=== PATIENT | female | born 1980 ===

== ENCOUNTER 2020-12-04 09:08 | Outpatient (REF) | payer MEDICAID, SELFPAY ==
[2020-12-04 10:21] LABS: Iron 91 mcg/dL (30-160); Percent Iron Saturation 24 % (15-50); Total Iron Binding Capacity 381 mcg/dL (228-428); Unsaturated Iron Binding 290 ug/dL
[2020-12-04 10:44] LABS: T4 Thyroxine 7.6 ug/dL (4.5-12.0); Thyroid Stimulating Hormone 0.62 uIU/mL (0.32-4.0)
[2020-12-05 09:12] LABS: Triiodothyronine T3 Total 116 ng/dL (76-181)
== END 2020-12-04 09:09 | disposition home or self-care (01) ==
LOC: HO.LAB 09:08
PROVIDERS: Absent Provider Nurse Practitioner Primary Care; PCP Nurse Practitioner Primary Care; Visit Provider Registered Nurse Community Health
DX: R00.1 Bradycardia, unspecified (principal); R06.02 Shortness of breath
CPT/HCPCS: 36415; 83540; 84436; 84443; 84480

== ENCOUNTER → 2020-12-14 14:53 | Outpatient (BNVA) | payer MEDICAID, SELFPAY | PROVIDERS: PCP Registered Nurse Community Health; Referring Provider Registered Nurse Community Health; Visit Provider Internal Medicine | DX: R07.2 Precordial pain (principal); R00.2 Palpitations; R06.02 Shortness of breath | CPT/HCPCS: 99202 ==

== ENCOUNTER → 2021-01-14 10:34 | Outpatient (BNVA) | payer MEDICAID, SELFPAY | PROVIDERS: PCP Nurse Practitioner Primary Care; Visit Provider Nurse Practitioner Family | DX: M53.9 Dorsopathy, unspecified (principal); M53.3 Sacrococcygeal disorders, not elsewhere classified | CPT/HCPCS: 99202 ==

== ENCOUNTER → 2021-01-18 07:51 | Outpatient (REF) | payer MEDICAID, SELFPAY ==
--- NOTE | ~2021-01-18 | NM_ITS ---
EXERCISE MYOCARDIAL PERFUSION STUDY INDICATION: Chest pain, shortness of breath, assess for coronary disease and ischemia TECHNIQUE: The patient was brought in for an exercise perfusion study on 01/18/2021. Patient performed exercise as per Shaun protocol and was injected 45 mCi of sestamibi once target heart rate was achieved. Images were obtained using the SPECT gamma camera interlaced with the gating device. Images were obtained in supine position. Resting perfusion study was performed on 01/19/2021. Patient was administered 45 mCi of sestamibi intravenously at rest. Images were then obtained in supine position. Total DLP 179mGy-cm. Images were processed with the software and compared side to side in short axis, horizontal long axis and vertical long axis views. FINDINGS: Raw images were reviewed. The stress perfusion study showed diminished tracer uptake along the distal part of anterior wall, apex, apical lateral wall. There is slightly decreased tracer uptake in the basal inferior wall. With CT attenuation, there is significant improvement in the apex and adjacent areas and hence this could be from soft tissue attenuation. There is also improved uptake in the basal inferior wall and hence this could be from diaphragmatic attenuation. The gated study shows normal LV systolic function with calculated LVEF of 58%. LV cavity is normal in size. The gated study shows normal wall thickening and contraction of segments. Resting study shows no significant perfusion abnormality. Gating at rest reveals normal wall motion with ejection fraction at 60%. The findings are consistent with reversible anterior apical, apical and apical lateral defect likely from soft tissue attenuation artifact. Reversible basal inferior defect likely from diaphragmatic artifact. NM/NM cardiolite stress test IMPRESSION: 1. Myocardial perfusion imaging study shows no definitive evidence of any ischemia or infarction. Likely normal perfusion. 2. Gated LVEF is 58% during stress and 60% during rest. 3. Transient ischemic dilatation not present. EKG component of the test reported separately.
--- NOTE | 2021-01-18 08:28 | CA_ITS ---
Transthoracic Echocardiogram Patient (Last, First, Middle): Ro Marks O Gender: Female Date of : 1980 Age: 40 Procedure Date: 01/18/2021 Procedure Type: Transthoracic Echocardiogram Location: OP Height: 170.18 cm Weight: 130.64 kg BSA: 2.36 m2 Heart Rate: bpm BP: 116 / 57 mmHg Intensive Care Unit Registered Nurse: FRANKLIN Referring MD: Wojciech Bernardo MD Coin Box Inspector: Abdi Mcintosh MD Symptoms: R07.2 - Precordial pain Study Quality: Fair ECG Rhythm: Sinus Conclusions: - Essentially normal study Findings Left Ventricle Normal left ventricular cavity size. There is normal left ventricular wall thickness. The visually estimated ejection fraction is between 55-60%. Spectral Doppler is indicative of a normal filling pattern. Right Ventricle Normal right ventricular cavity size and systolic function. Atria The left atrium is normal in size. Interatrial shunt cannot be excluded. The right atrium is normal in size. Aortic Valve Normal aortic valve structure and function. There is no aortic valve stenosis. There is no aortic valve regurgitation. Mitral Valve Normal mitral valve structure and function. There is trace mitral valve regurgitation. There is no mitral valve stenosis. Pulmonic Valve The pulmonic valve was not well visualized. Tricuspid Valve Likely normal tricuspid valve structure and function. There is trace tricuspid valve regurgitation. The right ventricular systolic pressure is normal. The right ventricular systolic pressure is 26 mmHg. Normal right atrial pressure. There is no evidence of pulmonary hypertension. Great Vessels All visible segments of the aorta are normal in size. The pulmonary artery was not well visualized. Venous The inferior vena cava is normal in size and collapses greater than 50% with inspiration. Pericardium/Pleural There is no evidence of pericardial effusion. Prior Study Comparison No prior study available for comparison. Measurements 2D Linear Measurements IVSd: 0.97 0.6-0.9/0.6-1.0 cm LVIDd: 5.29 3.9-5.3/4.2-5.9 cm LVIDd Index: 2.24 2.4-3.2/2.2-3.1 cm/m2 LVIDs: 3.89 2.0-3.6 cm LVPWd: 0.94 0.7-1.1 cm Ao Root: 2.80 2.1-3.5 cm LA Diam: 3.40 2.7-3.8/3.0-4.0 cm LAIDs Index: 1.44 1.5-2.3 cm/m2 LV Mass: 233.74 67-162/88-224 g LV Mass Index: 99.04 43-95/49-115 g/m2 LVOT Diam: 2.20 3.0+(-)1.3 cm 2D Systolic Function EF 4C: 54.30 >55% EF 2C: 53.00 >55% EF BiP: 55.00 >55% Mitral Valve MV Pk E: 0.84 MV PK A: 0.50 MV Decel Time: 327.00 E/A: 1.70 PHT: 96.00 MVA PHT: 2.29 Decel Coffey: 2.56 Aortic Valve AoV Pk Elia: 1.28 AoV Pk Grad: 7.00 LVOT LVOT Pk Elia: 0.72 LVOT Mn Elia: 0.50 LVOT VTI: 0.19 LVOT Pk Grad: 2.00 LVOT Mn Grad: 1.00 LVOT Diam: 2.20 LVOT Area: 3.80 Diastolic Function MV Pk E: 0.84 MV Pk A: 0.50 E/A: 1.70 Right Ventricle TAPSE (mm): 1.99 Tricuspid Valve TR Pk Elia: 2.40 TR Pk Grad: 23.00 RA Press: 3.00 RVSP: 26.00 Great Vessels Aorta Ao Root-2D: 2.80 2.0-3.7 cm Ao Asc: 2.80 2.1-3.4 cm Ao Arch: 2.60 Updated in Other Vendor System with Status of Final Abdi Mcintosh MD electronically signed on 01/19/2021 8:54:45 AM with status of Final
--- NOTE | 2021-01-18 08:28 | CA_ITS ---
Acquisition Time: 2021-01-18 09:27:42 Total Exercise Time: 00:05:00 Test Indications: CP, SOB Medications: SEE CHART Protocol: AMARIS Max HR: 173 BPM 95% of Pred: 182 BPM Max BP: 160/078 mmHG Max Work Load: 7.0 METS Exercise stess test with exercise 5 min of Amaris protocol with request to stop due to moderate shortness of breath, no chest discomfort, with sinus pauses noted on EKG at baseline, longest 2.4 sec asymptomatic, without arrythmia/ pauses during exercise or recovery, with normotensive response to exercise, without EKG changes meeting criteria for ischemia. In recovery her breathing normalized quickly. Nuclear images pending. Test reviewed with Dr Mcintosh. Referred By: Wojciech Bernardo Overread By: CHACHA PEPE
== END ==
LOC: HO.CARD 07:51
PROVIDERS: Visit Provider Internal Medicine
DX: R07.2 Precordial pain (principal); R06.02 Shortness of breath
CPT/HCPCS: 78452; 93017; 93306; A9500

== ENCOUNTER → 2021-01-25 14:44 | Outpatient (BNVA) | payer MEDICAID, SELFPAY | PROVIDERS: PCP Registered Nurse Community Health; Referring Provider Nurse Practitioner Primary Care; Visit Provider Nurse Practitioner Family | DX: I45.5 Other specified heart block (principal); R07.2 Precordial pain; R06.02 Shortness of breath; R00.2 Palpitations | CPT/HCPCS: 93005; 99212 ==

== ENCOUNTER → 2021-01-31 14:02 | Outpatient (REF) | payer MEDICAID, SELFPAY ==
--- NOTE | 2021-01-31 14:21 | HM_ITS ---
Conclusion: 1. Patient was monitor for total period of 3 days and 2 hours 2. Baseline was normal sinus rhythm with average heart rate of 71 beats per minute, maximum heart rate sinus tachycardia at 174 beats per minute and minimum heart rate of 36 beats per minute in sinus bradycardia during sleep hours 3. No tachy or Dwayne arrhythmias noted 4. Total of 408 PACs accounting for 0.13% of total beats accounting for rare PACs 5. No patient reported events MTDD
== END ==
LOC: HO.SL 14:02
PROVIDERS: PCP Nurse Practitioner Primary Care; Visit Provider Nurse Practitioner Family
DX: G47.10 Hypersomnia, unspecified (principal); I45.5 Other specified heart block; R00.2 Palpitations
CPT/HCPCS: 93242; 95806

== ENCOUNTER 2021-02-15 06:51 | Outpatient (REF) | payer MEDICAID, SELFPAY ==
--- NOTE | ~2021-02-15 | FL_ITS ---
EXAMINATION: XR FLUOROSCOPY WITH IMAGES CLINICAL INFORMATION: M53.3 - Sacrococcygeal disorders, not elsewhere classified COMPARISON: None. TECHNIQUE: Fluoroscopy performed by Dr. Hunter Edward. Fluoroscopy time: 0.1 minutes DAP: 2.65 Gycm2 Images: 1 FINDINGS: There is spinal needle overlying lower right sacroiliac joint. There is periarticular contrast and likely some early intra-articular contrast. No visible vascular communication. FL/FL guidance in treatment room IMPRESSION: Fluoroscopy for pain management procedure.
== END 2021-02-15 06:52 | disposition home or self-care (01) ==
LOC: HO.RADIR 06:51
PROVIDERS: Visit Provider Anesthesiology
DX: M53.3 Sacrococcygeal disorders, not elsewhere classified (principal); M53.9 Dorsopathy, unspecified
CPT/HCPCS: 27096; Q9967

== ENCOUNTER → 2021-02-22 13:38 | Outpatient (BNVA) | payer MEDICAID, SELFPAY | PROVIDERS: PCP Nurse Practitioner Primary Care; Visit Provider Nurse Practitioner Family | DX: M53.9 Dorsopathy, unspecified (principal); M53.3 Sacrococcygeal disorders, not elsewhere classified | CPT/HCPCS: 99212 ==

== ENCOUNTER → 2021-03-08 14:58 | Outpatient (BNVA) | payer MEDICAID, SELFPAY | PROVIDERS: PCP Nurse Practitioner Primary Care; Referring Provider Nurse Practitioner Primary Care; Visit Provider Nurse Practitioner Family | DX: I45.5 Other specified heart block (principal); R06.02 Shortness of breath; R07.2 Precordial pain; R00.2 Palpitations | CPT/HCPCS: 99212 ==

== ENCOUNTER 2021-05-19 10:46 | Outpatient (REF) | payer MEDICAID, SELFPAY ==
--- NOTE | 2021-05-19 | PFT_ITS ---
FLOWS: FEV1 85% of predicted at 2.85 L. FVC 80% of predicted at 3.22 L. FEV1 to FVC ratio of 0.89. No bronchodilator response except in small to medium airways. LUNG VOLUMES: Total lung capacity 83% of predicted at 4.61 L. Residual volume 72% of predicted at 1.24 L. Slow vital capacity 89% of predicted at 3.38 L. Expiratory reserve volume 21% of predicted at 0.29 L. Diffusion capacity is normal. IMPRESSION: No obstructive or restrictive ventilatory defect. No bronchodilator response except in small to medium airways. Decreased expiratory reserve volume suggests extrathoracic restriction likely secondary to abdominal obesity. Yoseph Anderson MD AP/MODL / [id number]
== END 2021-05-19 10:47 | disposition home or self-care (01) ==
LOC: HO.RESP 10:46
PROVIDERS: PCP Nurse Practitioner Primary Care; Visit Provider Nurse Practitioner Primary Care
DX: R06.02 Shortness of breath (principal)
CPT/HCPCS: 94060; 94727; 94729

== ENCOUNTER 2021-05-27 08:41 | Emergency (ER) | payer MEDICAID, SELFPAY ==
[2021-05-27 08:44] VITALS: BP 129/78; PULSE 89; RESP 18; TEMP 36.4; O2SAT 97; BMI 44.1
--- NOTE | 2021-05-27 09:01 | ED.BACK ---
HPI - Back Pain/Injury General Chief Complaint: Back Pain/Injury <ROMERO Watson Last Filed: 05/27/21 11:18> Stated Complaint: Back pain/leg pain <ROMERO Watson Last Filed: 05/27/21 11:18> Time Seen by Provider: 05/27/21 08:58 <ROMERO Watson Last Filed: 05/27/21 11:18> Source: patient <ROMERO Watson Last Filed: 05/27/21 11:18> Mode of arrival: ambulatory <ROMERO Watson Last Filed: 05/27/21 11:18> Limitations: no limitations <ROMERO Watson Last Filed: 05/27/21 11:18> History of Present Illness HPI Narrative: 40-year-old female with a past medical history of SI joint pain, degenerative disc disease, heart palpitations and obesity who has seen Pain Management in the past for right low chronic back Pain that she has had the last 8 years presents for worsening back pain that started 3 days ago. No trauma, Pain started while patient was at work. Pain has gotten progressively worse, it is a 10/10 and is sharp and stabbing in patient's mid back and right buttock traveling down her right leg. Patient cannot find a comfortable position to sit and has missed work these last 3 days due to pain Patient states she has been incontinent of urine when she has to go to the bathroom because is difficult to make it to the bathroom in time due to pain. She has had 7 children She is able to empty her bladder completely, no bowel incontinence, no saddle paresthesias, no numbness or tingling. It is hard to walk due to pain, no focal weakness. No fevers. Patient was seen in the past by her PCP and was treated for sciatica with no improvement, she was [facility] dysfunction and they did injections in her right SI joint. Patient had MRI 2016 that showed disc disease in her lumbar spine L4-L5, L5-S1, patient had CT October 2016 which showed degenerative disc disease L5-S1 <ROMERO Watson Last Filed: 05/27/21 11:18> MD elicited complaint: back pain <ROMERO Watson Last Filed: 05/27/21 11:18> Pertinent past history: prior back pain <ROMERO Watson - Last Filed: 05/27/21 11:18> Onset (ago): day(s) (3) <ROMERO Watson - Last Filed: 05/27/21 11:18> Timing: progressively worsening <ROMERO Watson - Last Filed: 05/27/21 11:18> Severity: severe <ROMERO Watson - Last Filed: 05/27/21 11:18> Pain scale (0-10): 10 <ROMERO Watson - Last Filed: 05/27/21 11:18> Similar Symptoms Previously: Yes <ROMERO Watson - Last Filed: 05/27/21 11:18> Quality: stabbing <ROMERO Watson - Last Filed: 05/27/21 11:18> Location: right lower back and left lower back <ROMERO Watson - Last Filed: 05/27/21 11:18> Radiation: groin <ROMERO Watson - Last Filed: 05/27/21 11:18> Exacerbating factors: movement, supine positioning, sitting upright and walking <ROMERO Watson - Last Filed: 05/27/21 11:18> Relieving factors: none <ROMERO Watson - Last Filed: 05/27/21 11:18> Associated symptoms: difficulty walking <ROMERO Watson - Last Filed: 05/27/21 11:18> Treatments prior to arrival: NSAIDS <ROMERO Watson - Last Filed: 05/27/21 11:18> Work related injury: No <ROMERO Watson - Last Filed: 05/27/21 11:18> Related Data Home Medications: Home Medications Medication Instructions Recorded Confirmed albuterol sulfate 90 mcg/actuation 2 puff PO QID 12/14/20 03/08/21 aerosol inhaler (ProAir HFA) cetirizine 10 mg capsule (Zyrtec) 10 mg PO DAILY PRN 12/14/20 03/08/21 cholecalciferol (vitamin D3) 50 50 mcg PO DAILY 12/14/20 03/08/21 mcg (2,000 unit) capsule diphenhydramine HCl 25 mg capsule 25 mg PO TID PRN 12/14/20 03/08/21 (Benadryl) escitalopram oxalate 10 mg tablet 10 mg PO DAILY 12/14/20 03/08/21 famotidine 20 mg tablet (Pepcid) 20 mg PO DAILY PRN 12/14/20 03/08/21 fexofenadine 60 mg tablet (Danya 60 mg PO BID PRN 12/14/20 03/08/21 Allergy) prednisone 50 mg tablet 50 mg PO DAILY PRN 12/14/20 03/08/21 tramadol 100 mg capsule 100 mg PO TID cap 12/14/20 03/08/21 24h,extended release(25-75) zolpidem 10 mg tablet (Ambien) 10 mg PO BEDTIME 12/14/20 03/08/21 ibuprofen 800 mg tablet 800 mg PO TID 01/14/21 03/08/21 tramadol 50 mg tablet 100 mg PO Q8H PRN 01/14/21 03/08/21 Previous Rx's Medication Instructions Recorded diazepam 5 mg tablet (Valium) 5 mg PO TID PRN #9 tab 05/27/21 ketorolac 10 mg tablet 10 mg PO TID 5 Days #15 tab 05/27/21 <ROMERO Watson Last Filed: 05/27/21 11:18> Allergies/Adverse Reactions: Allergies Allergy/AdvReac Type Severity Reaction Status Date / Time dust mites Allergy Unknown hives Verified 03/08/21 14:59 hydroxyzine [HYDROXYZINE] Allergy Unknown ANAPHYLAXIS, Verified 03/08/21 14:59 rash wheat Allergy Unknown ANAPHYLAXIS Verified 03/08/21 14:59 <ROMERO Watson Last Filed: 05/27/21 11:18> Review of Systems Constitutional: Constitutional: Denies body ache(s), Denies chills, Denies fatigue, Denies fever(s), Denies headache(s) and Denies malaise <ROMERO Watson Last Filed: 05/27/21 11:18> Eyes: Eyes: Denies diplopia <ROMERO Watson Last Filed: 05/27/21 11:18> ENT: Denies vertigo, Denies dizziness, Denies headache(s), Denies neck pain and Reports sinus pain <ROMERO Watson - Last Filed: 05/27/21 11:18> Cardiovascular: Cardiovascular: Denies chest pain, Denies syncope, Denies leg edema, Denies lightheadedness, Denies Loss of Consciousness, Denies palpitations and Denies dyspnea <ROMERO Watson - Last Filed: 05/27/21 11:18> Respiratory: Respiratory: Denies chest congestion, Denies cough and Denies dyspnea <Kanika Arredondo DC - Last Filed: 05/27/21 11:18> Gastrointestinal: Gastrointestinal: Denies abdominal pain, Denies hematochezia, Denies constipation, Denies diarrhea, Denies nausea and Denies vomiting <ROMERO Watson - Last Filed: 05/27/21 11:18> Genitourinary: Genitourinary: Denies dysuria, Denies pelvic pain, Denies urinary incontinence (hard to make it to bathroom in time d/t pain) and Denies urinary hesitancy <ROMERO Watson - Last Filed: 05/27/21 11:18> Musculoskeletal: Musculoskeletal: Reports back pain, Denies neck pain, Denies numbness, Reports radiating pain into limb (right leg) and Denies tingling <Kanika Arredondo DC - Last Filed: 05/27/21 11:18> Integumentary/Breasts: Skin/Breast: Denies rash <ROMERO Watson - Last Filed: 05/27/21 11:18> Neurologic: Denies confusion, Denies vertigo, Denies dizziness, Denies syncope, Denies headache(s), Denies focal weakness, Denies numbness and Denies tingling <Kanika Arredondo DC - Last Filed: 05/27/21 11:18> Psychiatric: Psychiatric: Denies anxiety, Denies confusion and Denies depression <ROMERO Watson - Last Filed: 05/27/21 11:18> Endocrine: Endocrine: Denies fatigue and Denies palpitations <ROMERO Watson - Last Filed: 05/27/21 11:18> [facility] Past Medical History [facility] Narrative: DDD SI joint dysfunction <ROMERO Watson - Last Filed: 05/27/21 11:18> Surgical History: Surgical History H/O tubal ligation History of cholecystectomy <ROMERO Watson - Last Filed: 05/27/21 11:18> Family History Family History: Family History Mother Thyroid disease HTN (hypertension) Diabetes Depression Lupus Osteoarthritis Father HTN (hypertension) Pancreatic cancer Diabetes Stroke <ROMERO Watson - Last Filed: 05/27/21 11:18> Social History Social History: Social History Alcohol intake: never Patient Tobacco Use Status: Never used Tobacco Advance Directives: No Advance Directives Information Provided: No <ROMERO Watson - Last Filed: 05/27/21 11:18> Physical Exam Vital Signs: Vital Signs: Last Vital Signs Temp 97.5 F 05/27/21 08:44 Pulse 89 05/27/21 08:44 Resp 18 05/27/21 10:20 BP 129/78 05/27/21 08:44 Pulse Ox 97 05/27/21 08:44 BMI result Body Mass Index 44.1 <ROMERO Watson - Last Filed: 05/27/21 11:18> Vital Signs: Last Vital Signs Temp 97.5 F 05/27/21 08:44 Pulse 89 05/27/21 08:44 Resp 18 05/27/21 10:20 BP 129/78 05/27/21 08:44 Pulse Ox 97 05/27/21 08:44 BMI result Body Mass Index 44.1 <Earl Byrne MD - Last Filed: 05/27/21 09:56> Const: General: alert, awake and acute distress (d/t pain) mild; No confusion <ROMERO Watson - Last Filed: 05/27/21 11:18> Nutritional Appearance: obese centrally obese <ROMERO Watson - Last Filed: 05/27/21 11:18> Orientation/consciousness: patient oriented x3 and No confusion <ROMERO Watson - Last Filed: 05/27/21 11:18> Limitations: no limitations <ROMERO Watson - Last Filed: 05/27/21 11:18> HENMT: Head: Yes normal to inspection, Yes normocephalic and Yes atraumatic <Kanika Arredondo [facility] Last Filed: 05/27/21 11:18> Ears: hearing grossly normal bilaterally, external ears normal, TM's normal bilaterally and EAC's normal <Kanika Arredondo [facility] Last Filed: 05/27/21 11:18> General nose exam: Normal external nose present <Kanika Arredondo [facility] Last Filed: 05/27/21 11:18> Face and sinus: Yes normal facial exam and Yes sinuses nontender <Kanika Arredondo [facility] Last Filed: 05/27/21 11:18> Mouth: Normal oral and palatal mucosa present <Kanika Arredondo [facility] Last Filed: 05/27/21 11:18> Throat: Yes posterior oropharynx normal <Kanika Arredondo [facility] Last Filed: 05/27/21 11:18> Eyes: Conjunctivae: conjunctivae normal <Kanika Arredondo [facility] Last Filed: 05/27/21 11:18> Pupils: Equal, round and reactive pupils present <Kanika Arredondo [facility] Last Filed: 05/27/21 11:18> EOM: EOMs intact bilaterally <Kanika Arredondo [facility] Last Filed: 05/27/21 11:18> Neck: Neck: Yes full ROM, Yes no lymphadenopathy and Yes supple <Kanika Arredondo [facility] Last Filed: 05/27/21 11:18> Resp: Effort & Inspection: normal respiratory effort and able to speak in complete sentences <Kanika Arredondo [facility] Last Filed: 05/27/21 11:18> Auscultation: clear to auscultation bilaterally, no crackles, no rales, no rhonchi and no wheezes <Kanika Arredondo [facility] Last Filed: 05/27/21 11:18> Cardio: Rate: regular rate <Kanika Arredondo [facility] Last Filed: 05/27/21 11:18> Rhythm: regular rhythm <Kanika Arredondo [facility] Last Filed: 05/27/21 11:18> Heart sounds: S1 normal heart sound present and S2 normal heart sound present <Kanika Arredondo DC - Last Filed: 05/27/21 11:18> GI: Inspection: Yes normal to inspection <Kanika Arredondo [facility] Last Filed: 05/27/21 11:18> Palpation (GI): Soft to palpation, nontender, no guarding and not rigid <Kanika Arredondo [facility] Last Filed: 05/27/21 11:18> Percussion: Yes normal to percussion <Kanika Arredondo [facility] Last Filed: 05/27/21 11:18> Auscultation: normal bowel sounds <Kanika Arredondo [facility] Last Filed: 05/27/21 11:18> Rectal Exam - Female: visual inspection normal, normal sphincter tone and other (normal perineal sensation) <Kanika Arredondo [facility] Last Filed: 05/27/21 11:18> Back/Spine/Pelvis: Cervical Spine: normal cervical lordosis, cervical ROM normal and No step off deformity <Kanika Arredondo [facility] Last Filed: 05/27/21 11:18> Thoracic/Lumbar Spine: thoracic and lumbar spine normal to inspection, thoracic spinal tenderness and lumbar spinal tenderness <Kanika Arredondo [facility] Last Filed: 05/27/21 11:18> Pelvis: buttock tenderness on the right <Kanika Arredondo [facility] Last Filed: 05/27/21 11:18> Sacroiliac joints: on the right tender to palpation <Kanika Arredondo [facility] Last Filed: 05/27/21 11:18> Skin: General skin exam: no rashes or lesions noted <Kanika Arredondo [facility] Last Filed: 05/27/21 11:18> Neuro: General: patient oriented x3 and No confusion <Kanika Arredondo [facility] Last Filed: 05/27/21 11:18> Cranial nerves: Yes Equal, round and reactive pupils present <Kanika Arredondo [facility] Last Filed: 05/27/21 11:18> Extrem: General: Yes normal to inspection and Yes full ROM <Kanika Arredondo [facility] Last Filed: 05/27/21 11:18> Psych: Appearance: grossly normal <Kanika Arredondo [facility] Last Filed: 05/27/21 11:18> Affect: normal affect <Kanika Arredondo [facility] Last Filed: 05/27/21 11:18> Attitude: cooperative <ROMERO Watson - Last Filed: 05/27/21 11:18> Thought process: Normal thought process present <ROMERO Watson Last Filed: 05/27/21 11:18> Course Course Course Narrative: 40-year-old female with chronic back Pain and right SI joint dysfunction and degenerative disc disease presents for 3 days of worsening right-sided low back pain radiating down her right leg. On exam, patient is able to walk, has intact lower extremity pulses, sensation, deep tendon reflexes, right leg mildly weaker than left. Patient is tender in her right sciatic area and right SI joint, tender in her lower thoracic spine all the way down her lumbar spine. She has intact perineal sensation and very good rectal tone. Dr. Byrne saw patient, and agreed that imaging was not necessary at this time. Treating with Valium, ketorolac, Flexeril, will re-evaluate <ROMERO Watson - Last Filed: 05/27/21 11:18> Reevaluation(s) Reevaluation #1: I agree with history and physical, my physical showed strong dorsiflexion of large toe with good plantar flexion of foot. the patient had significant sciatica and SI joint tenderness on left. I do not feel that the patient has a neurologic emergency at this time and will not pursue a MRI of the lumbar spine. Will treat the patient symptomatically <Earl Byrne MD - Last Filed: 05/27/21 09:56> Time: 09:56 <Earl Byrne MD - Last Filed: 05/27/21 09:56> Reevaluation #2: patient is feeling better with treatment. Will send home, have patient follow-up with pain management, will prescribe Valium and ketorolac <ROMERO Watson - Last Filed: 05/27/21 11:18> Discharge Plan Discharge Clinical Impression: Low back pain <ROMERO Watson Last Filed: 05/27/21 11:18> Patient Disposition: Home, Self-Care <ROMERO Watson Last Filed: 05/27/21 11:18> Instructions: Acute Low Back Pain (ED) <ROMERO Watson Last Filed: 01/28/22 11:18> Additional Instructions: Please call pain management today, and make a follow up appointment. please call your primary care provider make a follow-up appointment please take Valium and ketorolac as prescribed. Please do not take any ibuprofen containing products while you are taking ketorolac. Please do not drive while you are taking Valium if you have sudden leg weakness, numbness or tingling in your groin, bowel or bladder incontinence, please return to emergency <ROMERO Watson - Last Filed: 05/27/21 11:18> Prescriptions: New diazepam [Valium] 5 mg tablet 5 mg PO TID PRN (Reason: muscle spasm) Qty: 9 0RF ketorolac 10 mg tablet 10 mg PO TID 5 Days Qty: 15 0RF No Action cholecalciferol (vitamin D3) 50 mcg (2,000 unit) capsule 50 mcg PO DAILY 0RF escitalopram oxalate 10 mg tablet 10 mg PO DAILY 0RF albuterol sulfate [ProAir HFA] 90 mcg/actuation HFA aerosol inhaler 2 puff PO QID 0RF tramadol 100 mg capsule,ER biphase 24 hr 25-75 100 mg PO TID 0RF diphenhydramine HCl [Benadryl] 25 mg capsule 25 mg PO TID PRN0RF Zyrtec 10 mg capsule 10 mg PO DAILY PRN0RF fexofenadine [Danya Allergy] 60 mg tablet 60 mg PO BID PRN0RF famotidine [Pepcid] 20 mg tablet 20 mg PO DAILY PRN0RF prednisone 50 mg tablet 50 mg PO DAILY PRN0RF zolpidem [Ambien] 10 mg tablet 10 mg PO BEDTIME 0RF tramadol 50 mg tablet 100 mg PO Q8H PRN0RF ibuprofen 800 mg tablet 800 mg PO TID 0RF <ROMERO Watson - Last Filed: 05/27/21 11:18>
[2021-05-27] MEDS: diazePAM 5 MG TABLET PO (09:28)
[2021-05-27] MEDS: Ketorolac Tromethamine 30 MG/ML VIAL IM (09:28)
[2021-05-27] MEDS: Cyclobenzaprine HCl 10 MG TABLET PO (09:28)
[2021-05-27 10:20] VITALS: RESP 18
--- NOTE | 2021-05-27 11:03 | PC.NURSE ---
UP OOB WITH SLOW STEADY GAIT TO BATHROOM.
== END 2021-05-27 11:38 | disposition home or self-care (01) ==
PROVIDERS: Emergency Provider Emergency Medicine; PCP Nurse Practitioner Primary Care
DX: M54.50 Low back pain, unspecified (principal); M79.604 Pain in right leg; Z79.899 Other long term (current) drug therapy
CPT/HCPCS: 96372; 99283; 99284; J1885

== ENCOUNTER → 2021-05-31 11:05 | Outpatient (BNVA) | payer MEDICAID, SELFPAY | PROVIDERS: PCP Nurse Practitioner Primary Care; Visit Provider Nurse Practitioner Family | DX: M53.3 Sacrococcygeal disorders, not elsewhere classified (principal) | CPT/HCPCS: 99212 ==

== ENCOUNTER 2021-07-14 11:30 | Day surgery (SDC) | payer MEDICAID, SELFPAY ==
[2021-07-11 11:09] VITALS: BMI 43.9
--- NOTE | 2021-07-13 10:32 | P.CONAN_ITS ---
Documented by User: Jayne Chambers NP 07/13/21 10:34 [facility] Active Problems Active Problems: All Active Problems (Updated 05/28/21 @ 00:00 by Keo Wright) Sacroiliac joint pain (Acute) Multilevel degenerative disc disease (Acute) Hypersomnia (Acute) Sinus pause (Acute) Heart palpitations (Acute) SOB (shortness of breath) on exertion (Acute) Precordial chest pain (Acute) Past Medical History Medical History Anemia Family History Family History Mother Thyroid disease HTN (hypertension) Diabetes Depression Lupus Osteoarthritis Father HTN (hypertension) Pancreatic cancer Diabetes Stroke Surgical History Surgical History H/O tubal ligation History of cholecystectomy Social History Social History Alcohol intake: never Patient Tobacco Use Status: Never used Tobacco Have you been hit, kicked, punched, or otherwise hurt by someone within the past year? If so, by whom?: No Are you DNR?: No Advance Directives: No Advance Directives Information Provided: Yes Recently lost weight without trying: No Nutrition Risks: No Nutritional Risk Patient : No Meds Allergies Allergy/AdvReac Type Severity Reaction Status Date / Time dust mites Allergy Unknown hives Verified 05/31/21 11:14 hydroxyzine [HYDROXYZINE] Allergy Unknown ANAPHYLAXIS, Verified 05/31/21 11:14 rash wheat Allergy Unknown ANAPHYLAXIS Verified 05/31/21 11:14 Home Medications Medication Instructions Recorded Confirmed Last Taken Type albuterol sulfate 90 mcg/actuation 2 puff PO QID 12/14/20 05/31/21 Unknown History aerosol inhaler (ProAir HFA) cetirizine 10 mg capsule (Zyrtec) 10 mg PO DAILY PRN 12/14/20 05/31/21 Unknown History cholecalciferol (vitamin D3) 50 50 mcg PO DAILY 12/14/20 05/31/21 Unknown History mcg (2,000 unit) capsule diphenhydramine HCl 25 mg capsule 25 mg PO TID PRN 12/14/20 05/31/21 Unknown History (Benadryl) escitalopram oxalate 10 mg tablet 10 mg PO DAILY 12/14/20 05/31/21 Unknown History famotidine 20 mg tablet (Pepcid) 20 mg PO DAILY PRN 12/14/20 05/31/21 Unknown History zolpidem 10 mg tablet (Ambien) 10 mg PO BEDTIME 12/14/20 05/31/21 Unknown History tramadol 50 mg tablet 100 mg PO Q8H PRN 01/14/21 05/31/21 Unknown History meloxicam 7.5 mg tablet 1 tab PO BID 07/14/21 07/14/21 07/11/21 History Exam Exam Date and Time: July 13, 2021 1032 Height,Weight and Vital Signs: Height 5 ft 7 in Weight 127.459 kg Narrative Narrative: Echocardiogram done on 01/18/2021 shows normal study, EF 55-60%.? Nuclear stress test done on 01/18/2021 showing exercise 5 minutes with moderate shortness of breath, brief sinus pauses noted on EKG tracing, likely normal myocardial perfusion imaging with no definite evidence of ischemia or infarct. Holter monitor done on 01/31/21 for 3 days shows SR/ ST, average 71, rate range 36- 174, low rate during sleep, No tachy or bradyarrythmia noted, rare PACs. Home sleep study done on 01/31 was normal.? Assessment and Plan Assessment Anesthesia Assessment: Chart Reviewed Documented by User: Duyen Escoto MD 07/14/21 13:31 [facility] Past Medical History Medical History Anemia Family History Family History Mother Thyroid disease HTN (hypertension) Diabetes Depression Lupus Osteoarthritis Father HTN (hypertension) Pancreatic cancer Diabetes Stroke Surgical History Surgical History H/O tubal ligation History of cholecystectomy History of Problems with Anesthesia: No Social History Social History Alcohol intake: never Patient Tobacco Use Status: Never used Tobacco Have you been hit, kicked, punched, or otherwise hurt by someone within the past year? If so, by whom?: No Are you DNR?: No Advance Directives: No Advance Directives Information Provided: Yes Recently lost weight without trying: No Nutrition Risks: No Nutritional Risk Patient : No Meds Allergies Allergy/AdvReac Type Severity Reaction Status Date / Time dust mites Allergy Unknown hives Verified 05/31/21 11:14 hydroxyzine [HYDROXYZINE] Allergy Unknown ANAPHYLAXIS, Verified 05/31/21 11:14 rash wheat Allergy Unknown ANAPHYLAXIS Verified 05/31/21 11:14 Home Medications Medication Instructions Recorded Confirmed Last Taken Type albuterol sulfate 90 mcg/actuation 2 puff PO QID 12/14/20 05/31/21 Unknown History aerosol inhaler (ProAir HFA) cetirizine 10 mg capsule (Zyrtec) 10 mg PO DAILY PRN 12/14/20 05/31/21 Unknown History cholecalciferol (vitamin D3) 50 50 mcg PO DAILY 12/14/20 05/31/21 Unknown History mcg (2,000 unit) capsule diphenhydramine HCl 25 mg capsule 25 mg PO TID PRN 12/14/20 05/31/21 Unknown History (Benadryl) escitalopram oxalate 10 mg tablet 10 mg PO DAILY 12/14/20 05/31/21 Unknown History famotidine 20 mg tablet (Pepcid) 20 mg PO DAILY PRN 12/14/20 05/31/21 Unknown History zolpidem 10 mg tablet (Ambien) 10 mg PO BEDTIME 12/14/20 05/31/21 Unknown History tramadol 50 mg tablet 100 mg PO Q8H PRN 01/14/21 05/31/21 Unknown History meloxicam 7.5 mg tablet 1 tab PO BID 07/14/21 07/14/21 07/11/21 History Exam Airway Mallampati Class: II TM Dist: >3cm Neck ROM: Full Loose/Missing/Broken Teeth: No Heart: RRR Lungs: CTA Assessment and Plan Assessment Anesthesia Assessment: Anesthesia Plan Discussed Final Anesthetic Review History of Problems with Anesthesia: No NPO: Yes ASA Class: III Final Preanesthetic Review: Meds/Allgs Chart Reviewed, Consent Obtained/Reviewed and Anes Risks/Benef Reviewed Patient Risk: Intermediate Procedure Risk: Low Anesthetic Plan Anesthetic Plan: MAC: Disposition: Standard PACU
--- NOTE | ~2021-07-14 | FL_ITS ---
EXAMINATION: XR FLUOROSCOPY WITH IMAGES CLINICAL INFORMATION: SI joint induration. COMPARISON: None. TECHNIQUE: Fluoroscopy performed by Dr. Hunter Edward. Fluoroscopy time: 0.3 minutes DAP: 5.1 mGy-cm2 Images: 1 FINDINGS: There is a right sacral image revealing an electrode positioned within the presacral space through one of the right sacral foramina. The SI joint is normal. FL/FL guidance in OR IMPRESSION: Fluoroscopy was provided to referring physician for pain management.
[2021-07-14 12:04] VITALS: BP 134/64; PULSE 72; RESP 18; TEMP 36.6; O2SAT 97
[2021-07-14] MEDS: Lactated Ringers 1,000 ML 100 ML IVCONT (12:12)
--- NOTE | 2021-07-14 13:23 | MHC.SHP ---
Pre-Procedural Eval Section A Date of Service: 07/14/21 The patient is an INPATIENT: No Changes since office visit: Yes Patient answered all questions The History & Physical has been completed within 30 days and I have reviewed it.: No Section B Chief Complaint: Sacroiliac joint pain Details of Present Illness: As above Relevant Family History (Specify if Yes): No Relevant Social History: None Present Medications: see Short Stay Collaborative assessment Medical History: No relevant PMH History of Previous Operations: No relevant previous surgery Allergies: Allergies Allergy/AdvReac Type Severity Reaction Status Date / Time dust mites Allergy Unknown hives Verified 05/31/21 11:14 hydroxyzine [HYDROXYZINE] Allergy Unknown ANAPHYLAXIS, Verified 05/31/21 11:14 rash wheat Allergy Unknown ANAPHYLAXIS Verified 05/31/21 11:14 Review of Systems Sugical H&P ROS: Negative: Cardiovascular, Respiratory, Neurological, Psychiatric, Hem-Onc, Allergic/Immunologic, Gastrointestinal, Genitourinary, Musculoskeletal, Integumentary, Endocrine and Eyes/Ears/Nose/Throat and Yes, Specify: Constitution (Morbid obesity) Exam Surgical H&P Exam: Normal: HEENT, Normal: Heart, Normal: Lungs, Normal: Extremities, Normal: Skin and Normal: Neurological and Significant Findings: Abdomen (Enlarged) Plan Diagnosis/Plan: Unchanged I have reviewed the history and physical and performed a pertinent physical examination on my patient. No changes have occurred unless specified.
--- NOTE | 2021-07-14 13:24 | P.BOP_ITS ---
Brief Operative Note Date of Service: 07/14/21 Pre-op diagnosis: Sacroiliitis Post-op diagnosis: same Procedure: PNS RIGHT SACROILIAC JOINT INNERVATION STIMULATION. STIM WAVE. Implants: NONE PERMANENT Surgeon: Hunter Edward MD Anesthesia: MAC Was an Activity Coordinator used for this Procedure?: No Estimated blood loss (mL): 1 Pathology: none sent Condition: stable Disposition: PACU
--- NOTE | 2021-07-14 13:25 | W.PM.OPN ---
Operative Note Operative Note Date of Service: 07/14/21 Narrative: Ro is 40 years old female who came today into the operating room for trial of Peripheral nerve stimulation of the right Sacroiliac joint innervation trial with stimwave technology.? Preoperatively patient received 3 g cefazolin _approximately 30 minutes before the procedure. After obtaining informed consent patient was brought to the operating room, she was positioned prone on operating table, [place] [employer] monitors were applied and patient was deeply sedated. ?? Time-out was performed delineating correct site, side, the nature of the procedure, patient's allergy, preoperative antibiotic.? All operating room staff was participating in OR time-out procedure. Patient's entire back was prepped with ChloraPrep twice and draped with full body drape.? Sterilely draped C-arm was brought over operating field and? attention was concentrated on the right sacroiliac joint area pain.? 16 cm malleable Coude needle was inserted to the skin in the projection of about 6 cm cephalad of the right sacroiliac joints upper margin.? The needle was advanced toward the sacral bone and after that followed the curvature of the sacral bone to the point where the lower most portion of the sacroiliac joint is contacted.? On the lateral view the needle was posterior to the sacral bone therefore covering innervation of sacroiliac joint. stimulating lead was inserted through the needle and advanced to the lower margin of the sacroiliac joint.? After that the stirring stylette was removed from the needle and copper wire stimulating stylet was inserted into the lead.? Coude needle was removed, care was taken to keep the electrode in place.? Skin at the point of entrance of the lead was prepped with Mastisol, at the 2nd margin of the stimulating antenna just below the 2nd margin the knot was tied on the lead.? 1 silk suture was used to anchor the stimulating lead to the skin of the patient as well. After that Steri-Strips were used to fix the lead to the skin smeared with Mastisol.? After that sterile dressing was applied. The transmitter was placed over the antenna of the lead and it was taped to the skin. At this moment patient was awaken and transferred to the bed.? She was recovering uneventfully in PACU. ?
[2021-07-14 14:32] VITALS: BP 120/63; PULSE 75; RESP 18; TEMP 36.4; O2SAT 100
[2021-07-14 14:42] VITALS: BP 123/52; PULSE 64; RESP 18; O2SAT 100
[2021-07-14] MEDS: Acetaminophen 325 MG TABLET 650 MG PO (14:49)
[2021-07-14 14:57] VITALS: BP 125/68; PULSE 60; RESP 16; O2SAT 99
[2021-07-14 15:12] VITALS: BP 134/69; PULSE 60; RESP 16; TEMP 36.4; O2SAT 100
== END 2021-07-14 15:43 ==
LOC: HO.SSS 11:31
PROVIDERS: PCP Nurse Practitioner Primary Care; Visit Provider Anesthesiology
PROC: (CPT 64561; principal; 2021-07-14 13:20)
DX: M53.3 Sacrococcygeal disorders, not elsewhere classified (principal); M46.1 Sacroiliitis, not elsewhere classified
CPT/HCPCS: 64561; C1816; J0690; J2250

== ENCOUNTER → 2021-07-20 10:20 | Outpatient (BNVA) | payer MEDICAID, SELFPAY | PROVIDERS: PCP Nurse Practitioner Primary Care; Visit Provider Nurse Practitioner Family | DX: M53.3 Sacrococcygeal disorders, not elsewhere classified (principal) | CPT/HCPCS: 99212 ==

== ENCOUNTER 2021-08-04 11:46 | Day surgery (SDC) | payer MEDICAID, SELFPAY ==
--- NOTE | 2021-08-03 13:49 | HO.ANESPROP2 ---
Documented by User: Jayne Chambers NP 08/03/21 13:50 HPI - Anesthesia Eval Consult details Narrative: 40yo F for Right Peripheral Nerve Stimulator Implant,sacroiliac joint innervation stimulation implant s/p trial 07/14/21 with MAC PMFSH Active Problems Active Problems: All Active Problems (Updated 07/14/21 @ 12:18 by Eileen Shea RN) Precordial chest pain (Acute) SOB (shortness of breath) on exertion (Acute) Heart palpitations (Acute) Sinus pause (Acute) Hypersomnia (Acute) Multilevel degenerative disc disease (Acute) Sacroiliac joint pain (Acute) Past Medical History Medical History Anemia Family History Family History Mother Thyroid disease HTN (hypertension) Diabetes Depression Lupus Osteoarthritis Father HTN (hypertension) Pancreatic cancer Diabetes Stroke Surgical History Surgical History H/O tubal ligation History of cholecystectomy History of Problems with Anesthesia: No Social History Social History Alcohol intake: never Patient Tobacco Use Status: Never used Tobacco Use of substances other than those prescribed or required for medical reasons: No Are you DNR?: No Advance Directives: No Advance Directives Information Provided: No Meds Allergies Allergy/AdvReac Type Severity Reaction Status Date / Time dust mites Allergy Unknown hives Verified 08/04/21 12:23 hydroxyzine [HYDROXYZINE] Allergy Unknown ANAPHYLAXIS, Verified 08/04/21 12:23 rash wheat Allergy Unknown ANAPHYLAXIS Verified 08/04/21 12:23 Home Medications Medication Instructions Recorded Confirmed Last Taken Type albuterol sulfate 90 mcg/actuation 2 puff PO QID 12/14/20 07/20/21 Unknown History aerosol inhaler (ProAir HFA) cetirizine 10 mg capsule (Zyrtec) 10 mg PO DAILY PRN 12/14/20 07/20/21 Unknown History cholecalciferol (vitamin D3) 50 50 mcg PO DAILY 12/14/20 07/20/21 Unknown History mcg (2,000 unit) capsule diphenhydramine HCl 25 mg capsule 25 mg PO TID PRN 12/14/20 07/20/21 Unknown History (Benadryl) escitalopram oxalate 10 mg tablet 10 mg PO DAILY 12/14/20 07/20/21 Unknown History famotidine 20 mg tablet (Pepcid) 20 mg PO DAILY PRN 12/14/20 07/20/21 Unknown History zolpidem 10 mg tablet (Ambien) 10 mg PO BEDTIME 12/14/20 07/20/21 Unknown History tramadol 50 mg tablet 100 mg PO Q8H PRN 01/14/21 07/20/21 Unknown History meloxicam 7.5 mg tablet 1 tab PO BID 07/14/21 07/20/21 07/11/21 History Exam Exam Date and Time: August 03, 2021 1342 Narrative Narrative: Echocardiogram done on 01/18/2021 shows normal study, EF 55-60%.? Nuclear stress test done on 01/18/2021 showing exercise 5 minutes with moderate shortness of breath, brief sinus pauses noted on EKG tracing, likely normal myocardial perfusion imaging with no definite evidence of ischemia or infarct. Holter monitor done on 01/31/21 for 3 days shows SR/ ST, average 71, rate range 36- 174, low rate during sleep, No tachy or bradyarrythmia noted, rare PACs. Home sleep study done on 01/31 was normal.? Assessment and Plan Assessment Anesthesia Assessment: Chart Reviewed Final Anesthetic Review History of Problems with Anesthesia: No Documented by User: Hansel Laurent MD 08/04/21 13:07 [facility] Past Medical History Medical History Anemia Family History Family History Mother Thyroid disease HTN (hypertension) Diabetes Depression Lupus Osteoarthritis Father HTN (hypertension) Pancreatic cancer Diabetes Stroke Family history of problems with anesthesia: No Surgical History Surgical History H/O tubal ligation History of cholecystectomy Social History Social History Alcohol intake: never Patient Tobacco Use Status: Never used Tobacco Use of substances other than those prescribed or required for medical reasons: No Are you DNR?: No Advance Directives: No Advance Directives Information Provided: No Meds Allergies Allergy/AdvReac Type Severity Reaction Status Date / Time dust mites Allergy Unknown hives Verified 08/04/21 12:23 hydroxyzine [HYDROXYZINE] Allergy Unknown ANAPHYLAXIS, Verified 08/04/21 12:23 rash wheat Allergy Unknown ANAPHYLAXIS Verified 08/04/21 12:23 Home Medications Medication Instructions Recorded Confirmed Last Taken Type albuterol sulfate 90 mcg/actuation 2 puff PO QID 12/14/20 07/20/21 Unknown History aerosol inhaler (ProAir HFA) cetirizine 10 mg capsule (Zyrtec) 10 mg PO DAILY PRN 12/14/20 07/20/21 Unknown History cholecalciferol (vitamin D3) 50 50 mcg PO DAILY 12/14/20 07/20/21 Unknown History mcg (2,000 unit) capsule diphenhydramine HCl 25 mg capsule 25 mg PO TID PRN 12/14/20 07/20/21 Unknown History (Benadryl) escitalopram oxalate 10 mg tablet 10 mg PO DAILY 12/14/20 07/20/21 Unknown History famotidine 20 mg tablet (Pepcid) 20 mg PO DAILY PRN 12/14/20 07/20/21 Unknown History zolpidem 10 mg tablet (Ambien) 10 mg PO BEDTIME 12/14/20 07/20/21 Unknown History tramadol 50 mg tablet 100 mg PO Q8H PRN 01/14/21 07/20/21 Unknown History meloxicam 7.5 mg tablet 1 tab PO BID 07/14/21 07/20/21 07/11/21 History Exam Airway Mallampati Class: II TM Dist: >3cm Neck ROM: Full Loose/Missing/Broken Teeth: Yes (front upper tooth chipped) Heart: [id number] Lungs: cta b/l Assessment and Plan Assessment Anesthesia Assessment: Anesthesia Plan Discussed Final Anesthetic Review Family History of Problems with Anesthesia: No NPO: Yes ASA Class: II Final Preanesthetic Review: No Changes in Pt Med Stat, Meds/Allgs Chart Reviewed, Consent Obtained/Reviewed and Anes Risks/Benef Reviewed Patient Risk: Intermediate Procedure Risk: Intermediate Assessment/Block/Sedation in SS: Assess/Block/Sedation-SS Anesthetic Plan Anesthetic Plan: MAC: and Agree w/ Assess. and Plan Disposition: Standard PACU
[2021-08-04] VITALS (10 sets, daily range): BP systolic 101–124; BP diastolic 46–75; PULSE 50–104; RESP 16–20; TEMP 36.4–36.6; O2SAT 89–100; BMI 42.9
--- NOTE | ~2021-08-04 | FL_ITS ---
EXAMINATION: XR FLUOROSCOPY WITH IMAGES CLINICAL INFORMATION: Peripheral nerve stimulator COMPARISON: Fluoroscopy with spot film 07/14/2021 TECHNIQUE: Fluoroscopy performed by Dr. Hunter Edward. Fluoroscopy time: 0.7 minutes DAP: 10.8 Gycm2 Images: 5 FINDINGS: There are 2 stimulator leads seen overlying the mid to lower right sacral wing with electrodes passing through the mid/lower right sacral foramen. The electrode tips at level of the anterior cortex. The SI joints are unremarkable. FL/FL guidance in OR IMPRESSION: Fluoroscopy for pain management procedure.
--- NOTE | 2021-08-04 12:21 | MHC.SHP ---
Pre-Procedural Eval Section A Date of Service: 08/04/21 The patient is an INPATIENT: No Changes since office visit: Yes Patient answered all questions The History & Physical has been completed within 30 days and I have reviewed it.: No Section B Chief Complaint: Sacrococcygeal disorders Relevant Family History (Specify if Yes): No Relevant Social History: None Present Medications: None Medical History: No relevant PMH History of Previous Operations: No relevant previous surgery Allergies: Allergies Allergy/AdvReac Type Severity Reaction Status Date / Time dust mites Allergy Unknown hives Verified 07/20/21 10:54 hydroxyzine [HYDROXYZINE] Allergy Unknown ANAPHYLAXIS, Verified 07/20/21 10:54 rash wheat Allergy Unknown ANAPHYLAXIS Verified 07/20/21 10:54 Review of Systems Sugical H&P ROS: Negative: Cardiovascular, Respiratory, Neurological, Psychiatric, Hem-Onc, Allergic/Immunologic, Gastrointestinal, Genitourinary, Musculoskeletal, Integumentary, Endocrine and Eyes/Ears/Nose/Throat and Yes, Specify: Constitution (morbid obesity) Exam Surgical H&P Exam: Normal: HEENT, Normal: Heart, Normal: Lungs, Normal: Extremities, Normal: Abdomen, Normal: Skin and Normal: Neurological Plan Diagnosis/Plan: Unchanged I have reviewed the history and physical and performed a pertinent physical examination on my patient. No changes have occurred unless specified.
--- NOTE | 2021-08-04 13:13 | P.OP_ITS ---
Operative Note Operative Note Date of Service: 08/04/21 Narrative: Right sacroiliac joint innervation stimulation Stimwave. After obtaining informed consent the patient was brought to the operating room, she was positioned supine on the stretcher ASA m-rs were applied and the patient was induced with GETA. She was transfered on the ORT and all pressure points were protected. ?Time-out was performed delineating correct site, side, the nature of the procedure, patient's allergy, preoperative antibiotic.? All operating room staff was participating in OR time-out procedure.? The patient received cefazolin 3 gr. intravenously 30 minutes before the procedure ? After appropriate level of sedation was obtained the patient's entire back? was prepped with ChloraPrep twice. Whole body drape was applied including Ioban film.? Sterilely draped C-arm was brought over the operating field and sq picture of right side of the pelvis was demonstrated on the screen. 4 cm above from the patient's right sacral ala projection the skin was infiltrated in linear vertical fashion and 15 blade scalpel was used to make an horizontal incision on the skin 4 cm long. The wound was widened and deepened until the superficial layer of thoracolumbar fascia. 16 g 15 cm introducer malleable needle was inserted through the fascia and advanced to the right sacral ala. when the position of the tip of the introducer needle was verified on the lateral view above the level of the bone,? the needle advanced alongside the sacral bone curvature following the direction of the silhouette of the sacroilic joint.? permanent stimulator catheter was inserted and advanced in the needle? When the body of the lead? reached adequate position the stirring stilet was removed from the lead and a conduction copper wire was inserted into the lead and advanced until resistance was met. The introducer needle was withdrawn with care taken not to dislodge the stimulating lead. After that - one more stimulating lead was inserted into slightly more medial position and more proximal position 1 cm to the lateral side from the first stimulating lead using the same technique as described above. The wound was irrigated with vancomycin containing normal saline. After that in the upper lumbar paraspinal area? local anesthetic was injected into the skin and the vertical 2 cm incision was made using 10 blade scalpel. This wound was widened and deepened using dull dissection and hemostasis was performed using electrocautery. After that this wound was irrigated with vancomycin containing normal saline and? tunneling device was used to connect the two wounds. The free ends of the stimulating electrodes were tunneled from the distal wound to the proximal wound and tunneling device was split and withdrawn. Care was taken to form straight position of the stimulating leads. After that the ends of the p lastic leads were tide on itself and then the coil was? formed from the free ends of the? two plastic leads using free silk suture knots. the coil was inserted into the wound. After that both wounds were irrigated again, they were closed using 0-0 and 0-2 polisorb sutures, steristrips were applied to the skin level. sterile dressings were affixed on the both wounds. The patient was awaken, transferred to PACU, where she recovered uneventfully. ?
--- NOTE | 2021-08-04 13:16 | PM.OP ---
Brief Operative Note Date of Service: 08/04/21 Pre-op diagnosis: sacroiliitis Post-op diagnosis: same Procedure: Right sacroiliac joint innervation stimulation implant Stimwave. Implants: stimwave stimulating wire Surgeon: Hunter Edward MD Anesthesia: GETA Was an Progressive Care Manager used for this Procedure?: No Estimated blood loss (mL): 6 Pathology: none sent Condition: stable Disposition: PACU
[2021-08-04] MEDS: Lactated Ringers 1,000 ML 100 ML IVCONT (13:23)
[2021-08-04] MEDS: Acetaminophen 325 MG TABLET 650 MG PO (15:56)
[2021-08-04] MEDS: oxyCODONE HCl Immed Release 5 MG TABLET 10 MG PO (15:56)
[2021-08-04] MEDS: fentaNYL citrate/PF 100 MCG/2 ML VIAL 50 MCG IVPUSH (15:58)
== END 2021-08-04 17:25 | disposition home or self-care (01) ==
PROVIDERS: PCP Nurse Practitioner Primary Care; Visit Provider Anesthesiology
PROC: (CPT 64555; principal; 2021-08-04 13:20)
DX: M53.3 Sacrococcygeal disorders, not elsewhere classified (principal); M46.1 Sacroiliitis, not elsewhere classified
CPT/HCPCS: 64555; 64590; C1816; C1897; J0690; J1100; J2405; J3010

== ENCOUNTER → 2021-08-10 09:51 | Outpatient (BNVA) | payer MEDICAID, SELFPAY | PROVIDERS: PCP Nurse Practitioner Primary Care; Visit Provider Anesthesiology | DX: M53.3 Sacrococcygeal disorders, not elsewhere classified (principal) | CPT/HCPCS: 99212 ==

== ENCOUNTER → 2021-08-17 09:45 | Outpatient (BNVA) | payer MEDICAID, SELFPAY | PROVIDERS: PCP Nurse Practitioner Primary Care; Visit Provider Anesthesiology | DX: M53.3 Sacrococcygeal disorders, not elsewhere classified (principal) | CPT/HCPCS: 99212 ==

== ENCOUNTER 2022-10-18 10:47 | Outpatient (REF) | payer MEDICAID, SELFPAY ==
--- NOTE | ~2022-10-18 | XR_ITS ---
EXAMINATION: XR FOOT, LEFT CLINICAL INFORMATION: Foot pain for 2 weeks. No injury. COMPARISON: None available. TECHNIQUE: AP, lateral, and oblique views of the left foot. FINDINGS: There is no evidence of an acute fracture or dislocation of the left foot. No destructive bony lesion is identified. Joint spaces appear maintained. Small calcaneal spurs at sites of insertion of the Achilles and plantar tendons seen. XR/XR foot LT min 3V IMPRESSION: Calcaneal spurs.
== END 2022-10-18 10:48 | disposition home or self-care (01) ==
LOC: HO.HHCX 10:47
PROVIDERS: Visit Provider Nurse Practitioner Primary Care
DX: M79.672 Pain in left foot (principal)
CPT/HCPCS: 73630

== ENCOUNTER 2022-11-02 08:30 | Outpatient (REF) | payer MEDICAID, SELFPAY ==
--- NOTE | ~2022-11-02 | MM_ITS ---
EXAMINATION: MM SCREENING DIGITAL BREAST TOMOSYNTHESIS, BILATERAL CLINICAL INFORMATION: Screening. Asymptomatic. Please note that the patient has a significant family history of postmenopausal breast cancer in her mother, maternal aunt, paternal aunt and paternal grandmother. The lifetime risk of breast cancer based on the Tyrer-Cuzick Model is 22.3%. COMPARISON: Mammography: This is a baseline mammogram. TECHNIQUE: Digital breast tomosynthesis is performed in both the craniocaudal and mediolateral oblique views along with computer-aided detection (CAD). Synthesized 2D images are generated from the tomosynthesis. FINDINGS: There are scattered areas of fibroglandular density (ACR BI-RADS breast composition Category b). There are no significant masses, abnormal calcifications, or other abnormalities. MM/MM tomosynthesis screening BI IMPRESSION: No mammographic evidence of malignancy. In light of the patient's risk score and family history, adjunct screening breast MRI is suggested, if not already undertaken. ASSESSMENT: BI-RADS BI-RADS 1 - Negative RECOMMENDATION: Routine annual mammography screening. 1 year F/U This examination should not preclude the clinical evaluation of a suspicious palpable abnormality. This patient's information was entered into a reminder system with a target due date for their next mammogram.
== END 2022-11-02 08:31 | disposition home or self-care (01) ==
LOC: HO.MAMMO 08:30
PROVIDERS: Visit Provider Nurse Practitioner Primary Care
DX: Z12.31 Encounter for screening mammogram for malignant neoplasm of breast (principal)
CPT/HCPCS: 77063; 77067

== ENCOUNTER → 2022-11-02 08:30 | Outpatient (BNV) | payer MEDICAID, SELFPAY | PROVIDERS: Visit Provider Radiology Diagnostic Radiology | DX: Z12.31 Encounter for screening mammogram for malignant neoplasm of breast (principal) | CPT/HCPCS: 77063; 77067 ==

== ENCOUNTER 2023-03-01 11:58 | Outpatient (REF) | payer OTHER, SELFPAY ==
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
== END 2023-03-01 11:59 | disposition home or self-care (01) ==
LOC: HO.HHCX 11:58
PROVIDERS: Visit Provider Internal Medicine
DX: M54.2 Cervicalgia (principal); M54.9 Dorsalgia, unspecified; M54.50 Low back pain, unspecified
CPT/HCPCS: 72050; 72070; 72100

== ENCOUNTER 2023-11-07 09:47 | Outpatient (REF) | payer MEDICAID, SELFPAY ==
--- NOTE | ~2023-11-07 | XR_ITS ---
EXAMINATION: XR PELVIS CLINICAL INFORMATION: Sacrococcygeal disorders COMPARISON: None available. TECHNIQUE: AP and lateral view of the pelvis. FINDINGS: No fracture. Hip joint spaces are maintained. Alignment is anatomic. Sacroiliac joints and pubic symphysis are normal. Calcified phleboliths in the pelvis. Stimulator leads terminating in the soft tissues dorsal to the mid sacrum. XR/XR pelvis min 3V IMPRESSION: 1. No acute fracture or dislocation. 2. Stimulator leads terminating in the soft tissues dorsal to the mid sacrum.
== END 2023-11-07 09:48 | disposition home or self-care (01) ==
LOC: HO.XRAY 09:47
PROVIDERS: PCP Nurse Practitioner Primary Care; Visit Provider Anesthesiology
DX: M53.3 Sacrococcygeal disorders, not elsewhere classified (principal)
CPT/HCPCS: 72190; 99212

== ENCOUNTER 2023-11-07 09:49 | Outpatient (AMB) | payer MEDICAID, SELFPAY ==
[2023-11-07 09:59] VITALS: BP 142/86; PULSE 75; RESP 16; O2SAT 97; BMI 44.9
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
== END 2023-11-07 10:20 | disposition home or self-care (01) ==
LOC: HO.PMC 09:49
PROVIDERS: PCP Nurse Practitioner Primary Care; Visit Provider Anesthesiology
DX: M53.3 Sacrococcygeal disorders, not elsewhere classified (principal)
CPT/HCPCS: 99214

== ENCOUNTER 2023-11-08 07:27 | Outpatient (REF) | payer MEDICAID, SELFPAY ==
--- NOTE | ~2023-11-08 | MM_ITS ---
EXAMINATION: MM SCREENING DIGITAL BREAST TOMOSYNTHESIS, BILATERAL CLINICAL INFORMATION: Screening. Asymptomatic. COMPARISON: Mammography: This study is compared with prior exams dating back to 2022. TECHNIQUE: Digital breast tomosynthesis is performed in both the craniocaudal and mediolateral oblique views along with computer-aided detection (CAD). Synthesized 2D images are generated from the tomosynthesis. FINDINGS: The breasts are almost entirely fatty (ACR BI-RADS breast composition Category a). There are no significant masses, abnormal calcifications, or other abnormalities. MM/MM tomosynthesis screening BI IMPRESSION: No mammographic evidence of malignancy. ASSESSMENT: BI-RADS BI-RADS 1 - Negative RECOMMENDATION: Routine annual mammography screening. 1 year F/U This examination should not preclude the clinical evaluation of a suspicious palpable abnormality. This patient's information was entered into a reminder system with a target due date for their next mammogram.
== END 2023-11-08 07:28 | disposition home or self-care (01) ==
LOC: HO.MAMMO 07:27
PROVIDERS: PCP Nurse Practitioner Primary Care; Visit Provider Nurse Practitioner Primary Care
DX: Z12.31 Encounter for screening mammogram for malignant neoplasm of breast (principal)
CPT/HCPCS: 77063; 77067

== ENCOUNTER → 2023-11-08 07:30 | Outpatient (BNV) | payer MEDICAID, SELFPAY | PROVIDERS: PCP Nurse Practitioner Primary Care; Visit Provider Radiology Diagnostic Radiology | DX: Z12.31 Encounter for screening mammogram for malignant neoplasm of breast (principal) | CPT/HCPCS: 77063; 77067 ==

== ENCOUNTER 2024-01-01 20:12 | Emergency (ER) | payer MEDICAID, SELFPAY ==
--- NOTE | ~2024-01-01 | XR_ITS ---
EXAMINATION: XR LUMBOSACRAL SPINE CLINICAL INFORMATION: Back pain COMPARISON: 03/01/2023 TECHNIQUE: Three views of the lumbosacral spine. FINDINGS: There is anatomic alignment of the lumbar vertebral bodies and posterior elements. Vertebral body heights are maintained. There is disc space narrowing of the lower lumbar spine. Endplate osteophytes are noted at L5-S1. Sacroiliac joints appear intact. There is questionable discontinuity of upper sacral arcuate lines bilaterally, which may be artifactual. There is an approximately 5 mm calcification lateral to the right L1 transverse process, for which a renal calculus cannot be excluded. XR/XR lumbar spine 2-3V IMPRESSION: 1. Apparent discontinuity of the upper sacral arcuate lines bilaterally, which could be artifactual versus secondary to sacral fracture if there has been trauma. If clinically warranted, this could be further assessed with pelvic CT. 2. Approximately 5 mm calcification lateral to the right L1 transverse process, for which a renal calculus cannot be excluded. 3. Lower lumbar degenerative changes. Electronically signed by: Jimmy Gaytan MD 01/01/2024 11:12 PM EDT
[2024-01-01 20:38] VITALS: BP 155/88; PULSE 78; RESP 18; TEMP 36.8; O2SAT 100; BMI 46.6
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
--- NOTE | 2024-01-01 22:27 | PC.NURSE ---
pt presents to the dept from home with complaints of radiating back pain for the last few days. pt has a neurostimulator in her spine that is known to currently be out of place. pt had an appointment for a revison this week, however her surgeon had to go out of town abruptly and her surgery was rescheduled to 01/25/24. at this time pt rates her pain 8/10 radiating down her left arm/leg into her neck. pt sts that she usually utilizes tramadol and naproxen for pain managemnt, and has also utilized baclofen and flexeril, in addition to steroids for past flares. pt thinks she may have aggrrivated her back doing home improvement projects, including laying tile. pt denies urinary/bowel symptoms, N/V/D. Xr has been obtained pt awaiting provider tamra. call bah within reach
[2024-01-01 22:42] VITALS: BP 138/88; PULSE 78; RESP 18; TEMP 36.3; O2SAT 96
[2024-01-01] MEDS: Cyclobenzaprine HCl 10 MG TABLET PO (22:53)
[2024-01-01] MEDS: Ketorolac Tromethamine 60 MG/2 ML VIAL IM (22:54)
[2024-01-01 22:59] VITALS: BP 138/88; PULSE 78; RESP 18; TEMP 36.3; O2SAT 96
== END 2024-01-01 22:59 | disposition home or self-care (01) ==
PROVIDERS: Emergency Provider Emergency Medicine; PCP Nurse Practitioner Primary Care
DX: M54.16 Radiculopathy, lumbar region (principal); Z79.899 Other long term (current) drug therapy
CPT/HCPCS: 72100; 96372; 99284; J1885

== ENCOUNTER 2024-02-22 08:36 | Day surgery (SDC) | payer MEDICAID, SELFPAY ==
--- NOTE | 2024-02-21 09:57 | P.CONAN_ITS ---
HPI - Anesthesia Eval Consult details Narrative: 43yo F for Right Sacroiliac Joint Innerv Stim Implant,Peripheral Nerve Simulator REVISION s/p stim implant 2021 with GA-LMA PMFSH Active Problems Active Problems: All Active Problems Sacroiliac joint pain (Acute) Multilevel degenerative disc disease (Acute) Hypersomnia (Acute) Sinus pause (Acute) Heart palpitations (Acute) SOB (shortness of breath) on exertion (Acute) Precordial chest pain (Acute) Past Medical History Medical History Palpitations Sacroiliac joint pain Anemia Family History Family History Mother Thyroid disease HTN (hypertension) Diabetes Depression Lupus Osteoarthritis Father HTN (hypertension) Pancreatic cancer Diabetes Stroke Family history of problems with anesthesia: No Surgical History Surgical History S/P placement of nerve stimulator History of cholecystectomy H/O tubal ligation History of Problems with Anesthesia: No Social History Social History Household Members Other:: mother in law Are you a primary neonatal intensive care unit nurse to a significant other at home: No Do you presently have visiting nurse or other home services: No Alcohol intake: never Comment: pt states her baseline is a 9 consistently Patient Tobacco Use Status: Never used Tobacco Meds Allergies Allergy/AdvReac Type Severity Reaction Status Date / Time hydroxyzine [HYDROXYZINE] Allergy Severe ANAPHYLAXIS, Verified 02/27/24 10:44 rash wheat Allergy Severe ANAPHYLAXIS Verified 02/27/24 10:44 dust mites Allergy Intermediate hives Verified 02/27/24 10:44 Home Medications ?Medication ?Instructions ?Recorded ?Confirmed ?Last Taken ?Type albuterol sulfate 90 mcg/actuation 2 puff inhalation QID 12/14/20 02/20/24 Unknown History aerosol inhaler (ProAir HFA) escitalopram oxalate 10 mg tablet 10 mg PO DAILY 12/14/20 02/20/24 Unknown History famotidine 20 mg tablet (Pepcid) 20 mg PO DAILY PRN Acid Reflux 12/14/20 02/20/24 Unknown History zolpidem 10 mg tablet (Ambien) 10 mg PO BEDTIME 12/14/20 02/20/24 Unknown History meloxicam 7.5 mg tablet 1 tab PO BID 07/14/21 02/20/24 07/11/21 History sumatriptan succinate 100 mg tablet 100 mg PO DAILY PRN migraine 11/07/23 02/20/24 Unknown History topiramate 25 mg capsule 50 mg PO DAILY 11/07/23 02/20/24 Unknown History sprinkle,extended release 24 hr Assessment and Plan Assessment Anesthesia Assessment: Chart Reviewed Final Anesthetic Review Family History of Problems with Anesthesia: No History of Problems with Anesthesia: No
[2024-02-22] VITALS (8 sets, daily range): BP systolic 110–144; BP diastolic 52–96; PULSE 48–76; RESP 12–18; TEMP 36.1–36.7; O2SAT 96–99; BMI 44.6
[2024-02-22] MEDS: Lactated Ringers 1,000 ML 100 ML IVCONT (09:44)
--- NOTE | 2024-02-22 09:47 | MHC.SHP ---
Pre-Procedural Eval Section A - 24 Hr Update-Section A only Date of Service: 02/22/24 The patient is an INPATIENT: No Changes since office visit: Yes Patient answered all questions The patient has been examined within 24 hours of the surgical procedure. The History & Physical has been completed within 30 days and I have reviewed it.: No Section B - Complete if H&P > 30 days Chief Complaint: Sacrococcygeal disorders, not elsewhere classified Details of Present Illness: as above Relevant Family History (Specify if Yes): No Relevant Social History: None Present Medications: see Short Stay Collaborative assessment Medical History: No relevant PMH History of Previous Operations: Relevant previous surgery/procedure and date(s) Allergies: Allergies Allergy/AdvReac Type Severity Reaction Status Date / Time hydroxyzine [HYDROXYZINE] Allergy Severe ANAPHYLAXIS, Verified 02/20/24 13:46 rash wheat Allergy Severe ANAPHYLAXIS Verified 02/20/24 13:46 dust mites Allergy Intermediate hives Verified 02/20/24 13:46 Review of Systems Sugical H&P ROS: Negative: Cardiovascular, Respiratory, Neurological, Psychiatric, Hem-Onc, Allergic/Immunologic, Gastrointestinal, Genitourinary, Integumentary, Endocrine and Eyes/Ears/Nose/Throat and Yes, Specify: Constitution (morbid obesity) and Musculoskeletal (sacroiliitis, right si joint pain) Exam Surgical H&P Exam: Normal: HEENT, Normal: Heart, Normal: Lungs, Normal: Extremities, Normal: Skin and Normal: Neurological and Significant Findings: Abdomen (enlarged due to i/a & s/q fat) Plan Diagnosis/Plan: Unchanged I have reviewed the history and physical and performed a pertinent physical examination on my patient. No changes have occurred unless specified. Time Spent With Patient Time: Total time managing care of this patient today __5__ minutes.
--- NOTE | 2024-02-22 10:02 | HO.ANESPROP2 ---
[facility] Active Problems Active Problems: All Active Problems Sacroiliac joint pain (Acute) Multilevel degenerative disc disease (Acute) Hypersomnia (Acute) Sinus pause (Acute) Heart palpitations (Acute) SOB (shortness of breath) on exertion (Acute) Precordial chest pain (Acute) Past Medical History Medical History Palpitations Sacroiliac joint pain Anemia Functional capacity: independent ambulation Patient : No Family History Family History Mother Thyroid disease HTN (hypertension) Diabetes Depression Lupus Osteoarthritis Father HTN (hypertension) Pancreatic cancer Diabetes Stroke Family history of problems with anesthesia: No Surgical History Surgical History S/P placement of nerve stimulator History of cholecystectomy H/O tubal ligation History of Problems with Anesthesia: No Social History Social History Household Members Other:: mother in law Are you a primary career development counselor to a significant other at home: No Do you presently have visiting nurse or other home services: No Alcohol intake: never Comment: pt states her baseline is a 9 consistently Patient Tobacco Use Status: Never used Tobacco Have you been hit, kicked, punched, or otherwise hurt by someone within the past year? If so, by whom?: No Are you DNR?: No Advance Directives: No Advance Directives Information Provided: Yes Recently lost weight without trying: No Nutrition Risks: No Nutritional Risk FDLMP: 02/05/24 Meds Allergies Allergy/AdvReac Type Severity Reaction Status Date / Time hydroxyzine [HYDROXYZINE] Allergy Severe ANAPHYLAXIS, Verified 02/20/24 13:46 rash wheat Allergy Severe ANAPHYLAXIS Verified 02/20/24 13:46 dust mites Allergy Intermediate hives Verified 02/20/24 13:46 Active Medications: Current Medications Lactated Ringer's (Lr) 1,000 mls @ 100 mls/hr IVCONT .Q10H CONSTANTIN Last Admin: 02/22/24 09:44 Dose: 100 mls/hr Home Medications ?Medication ?Instructions ?Recorded ?Confirmed ?Last Taken ?Type albuterol sulfate 90 mcg/actuation 2 puff inhalation QID 12/14/20 02/20/24 Unknown History aerosol inhaler (ProAir HFA) escitalopram oxalate 10 mg tablet 10 mg PO DAILY 12/14/20 02/20/24 Unknown History famotidine 20 mg tablet (Pepcid) 20 mg PO DAILY PRN Acid Reflux 12/14/20 02/20/24 Unknown History zolpidem 10 mg tablet (Ambien) 10 mg PO BEDTIME 12/14/20 02/20/24 Unknown History tramadol 50 mg tablet 100 mg PO Q8H PRN Pain 01/14/21 02/20/24 Unknown History meloxicam 7.5 mg tablet 1 tab PO BID 07/14/21 02/20/24 07/11/21 History sumatriptan succinate 100 mg tablet 100 mg PO DAILY PRN migraine 11/07/23 02/20/24 Unknown History topiramate 25 mg capsule 50 mg PO DAILY 11/07/23 02/20/24 Unknown History sprinkle,extended release 24 hr Exam Height,Weight and Vital Signs: Height 5 ft 7.5 in Weight 131.088 kg Last Vital Signs Temp 98.1 F 02/22/24 09:48 Pulse 76 02/22/24 09:48 Resp 18 02/22/24 09:48 BP 132/73 02/22/24 09:48 Pulse Ox 96 02/22/24 09:48 O2 Del Method Room Air 02/22/24 09:48 Airway Mallampati Class: II TM Dist: >3cm Neck ROM: Full Heart: RRR Lungs: CTA Assessment and Plan Assessment Anesthesia Assessment: Anesthesia Plan Discussed and Chart Reviewed Final Anesthetic Review Family History of Problems with Anesthesia: No History of Problems with Anesthesia: No NPO: Yes ASA Class: III Final Preanesthetic Review: Meds/Allgs Chart Reviewed, Consent Obtained/Reviewed and Anes Risks/Benef Reviewed Patient Risk: Intermediate Procedure Risk: Low Anesthetic Plan Anesthetic Plan: MAC: Disposition: Standard PACU
[2024-02-22 11:14] LABS: MRSA Nasal PCR NEGATIVE (Negative); SA Nasal PCR POSITIVE (Negative)
--- NOTE | 2024-02-22 13:11 | PM.OP ---
Brief Operative Note Date of Service: 02/22/24 Pre-op diagnosis: Sacroiliitis sacroiliac joint dysfunction on the right presence of cure on X PNS stimulator malfunctioning on the right in the position of the sacroiliac joint innervation. Post-op diagnosis: same Procedure: Sacroiliac joint stimulation removal for the right sacroiliac joint innervation and replacement with sacroiliac joint innervation system curonix. Implants: 2 peripheral nerve stimulation leads implanted in the position of sacroiliac joint innervation on the right, partially ruptured 1 of the previously implanted epidural leads was not removed and left behind. Surgeon: Hunter Edward MD Was an Gas Plumbing Inspector used for this Procedure?: No Estimated blood loss (mL): 16 Condition: stable Disposition: PACU
--- NOTE | 2024-02-22 13:14 | W.PM.OPN ---
Operative Note Operative Note Date of Service: 02/22/24 Narrative: Right sacroiliac joint innervation stimulation tray revision: Removal of the old stimulating leads and insertion of the new stimulating leads to the patient's back.. After obtaining informed consent the patient was brought to the operating room, she was positioned supine on the stretcher ASA m-rs were applied and the patient was induced with GETA. She was transfered on the ORT and all pressure points were protected. ?Time-out was performed delineating correct site, side, the nature of the procedure, patient's allergy, preoperative antibiotic.? All operating room staff was participating in OR time-out procedure.? The patient received cefazolin 2 gr. intravenously 30 minutes before the procedure the patient's entire back? was prepped with ChloraPrep twice. Whole body drape was applied including Ioban film.? Sterilely draped C-arm was brought over the operating field and sq picture of right side of the pelvis was demonstrated on the screen. In the projection of the previously made scar in paraspinal right location area was infiltrated with mixture of lidocaine 2% and bupivacaine 0.5% one-to-one. Vertical incision in paraspinal fashion 8 cm long was made through the skin and subcutaneous tissues using 10 blade scalpel, thorough hemostasis was obtained and wound was widened and deepened using dull dissection and electrocautery. The previously implanted electrodes were located in the wound and anchoring sutures were severed. Gentle traction was applied to the electrodes and I was able to remove the distal electrode without any difficulty. However when I was applying traction to the proximal electrode the electrode unfortunately ruptured. Decision was made to do an exploration of the scar of the incision above the sacral ala on the right in hope to deliver the electrode outside. The paraspinal wound was irrigated with normal saline mixed with vancomycin and after that the wound was packed with irrigation soaked 4x4s. In the projection of the previous scar at the site of the patient's right sacral ala projection the skin was infiltrated in horizontal fashion and 10. blade scalpel was used to make an horizontal incision on the skin 6 cm long. The wound was widened and deepened until the superficial layer of thoracolumbar fascia. The attempt was made to locate the ruptured electrode in the wound however it was not successful. The donx consulted and asked about the situation. The answer was that left behind partially ruptured electrode will not affect the patient's ability to go to MRI, since it is not contacted to any electrical device and the stimulating copper wire is not inside the plastic case. After that we started to implant the new system. 16 g 15 cm introducer malleable needle was inserted through the fascia and advanced to the right sacral ala. when the position of the tip of the introducer needle was verified on the lateral view above the level of the bone,? the needle advanced alongside the sacral bone curvature following the direction of the silhouette of the sacroilic joint.? permanent stimulator catheter was inserted and advanced in the needle? When the body of the lead? reached adequate position the stirring stilet was removed from the lead and a conduction copper wire was inserted into the lead and advanced until resistance was met. The introducer needle was withdrawn with care taken not to dislodge the stimulating lead. After that the driving stylettes were removed from the electrode and stimulating copper wires were inserted into each of the electrode. Anchoring sutures were applied to each of the electrode connecting each 1 of them to thoracolumbar fascia. This suture used was Tycron 0-0 After that - one more stimulating lead was inserted into slightly more medial position and more proximal position 1 cm to the lateral side from the first stimulating lead using the same technique as described above. Same anchoring technique was employed. After that the wound was irrigated with vancomycin containing normal saline. Tunneling device was used to connect wounds and the stimulating electrodes were advanced to the paraspinal wound. The electrodes were tied on itself and then the coil was made with the electrodes and they were deepened into the wound. The irrigation was repeated on both wounds. After that the wounds were irrigated, interrupted sutures Polysorb 0-0 were used to close paraspinal wound and non interrupted suture was used to close the wound above the sacral same Polysorb 0-0. After that 2-0 Polysorb was used to approximate the level of the skin and lito were applied to the level of the skin. After that bacitracin applied to the both incisions and Tegaderm and 4x4s were used to cover the wound. The patient was given abdominal binder. She tolerated the procedure well. She was transferred supine on the stretcher awakened and extubated. She was transferred to PACU for recovery.
[2024-02-22] MEDS: fentaNYL citrate/PF 100 MCG/2 ML VIAL 25 MCG IVPUSH ×2 (13:31→13:50)
--- NOTE | 2024-02-22 14:20 | HO.POSTANES ---
Post Anesthesia Evaluation Post Anesthesia Evaluation Date of Service: 02/22/24 Vital Signs: Vital Signs Temp Pulse Resp BP Pulse Ox O2 Del Method O2 Flow Rate 02/22/24 14:05 97 F 51 16 119/52 L 96 Room Air 02/22/24 13:55 48 L 16 139/79 99 Room Air 02/22/24 13:51 56 18 143/96 H 99 Nasal Cannula 2 02/22/24 13:50 61 18 139/79 99 Nasal Cannula 2 02/22/24 13:50 16 02/22/24 13:36 50 16 133/86 98 Nasal Cannula 2 02/22/24 13:36 50 16 133/86 98 Nasal Cannula 2 02/22/24 13:31 16 02/22/24 13:31 74 16 144/91 H 98 Nasal Cannula 2 02/22/24 13:21 97 F 74 12 110/79 98 Nasal Cannula 2 02/22/24 09:48 98.1 F 76 18 132/73 96 Room Air Anesthesia: General Endotracheal-GETA Mental Status: Awake Pain Control: Satisfactory Nausea/Vomiting: None Hydration: Adequate Anesthesia-Related Issues: No Anes. Related Issues
== END 2024-02-22 14:33 | disposition home or self-care (01) ==
PROVIDERS: Registered Nurse Emergency; PCP Nurse Practitioner Primary Care; Visit Provider Anesthesiology
PROC: (CPT 64585; principal; 2024-02-22 10:50)
DX: M53.3 Sacrococcygeal disorders, not elsewhere classified (principal); M46.1 Sacroiliitis, not elsewhere classified; D64.9 Anemia, unspecified; Z90.49 Acquired absence of other specified parts of digestive tract; Z98.51 Tubal ligation status
CPT/HCPCS: 64585; 87640; 87641; C1816; J0131; J0690; J1100; J1885; J2003; J2250; J2405; J2704; J2795; J3010; J3370

== ENCOUNTER → 2024-02-22 08:36 | Outpatient (BNV) | payer MEDICAID, SELFPAY | PROVIDERS: PCP Nurse Practitioner Primary Care; Visit Provider Anesthesiology | DX: M53.3 Sacrococcygeal disorders, not elsewhere classified (principal) | CPT/HCPCS: 64585 ==

== ENCOUNTER 2024-02-27 10:23 | Outpatient (AMB) | payer MEDICAID, SELFPAY ==
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
[2024-02-27 10:43] VITALS: BP 170/92; PULSE 92; RESP 17; O2SAT 97; BMI 45.4
== END 2024-02-27 10:52 | disposition home or self-care (01) ==
LOC: HO.PMC 10:24
PROVIDERS: PCP Nurse Practitioner Primary Care; Visit Provider Anesthesiology
DX: M53.3 Sacrococcygeal disorders, not elsewhere classified (principal)
CPT/HCPCS: 99024

== ENCOUNTER → 2024-02-27 10:23 | Outpatient (BNVA) | payer OTHER, MEDICAID, SELFPAY | PROVIDERS: PCP Nurse Practitioner Primary Care; Visit Provider Anesthesiology | DX: M53.3 Sacrococcygeal disorders, not elsewhere classified (principal) | CPT/HCPCS: 99212 ==

== ENCOUNTER 2024-03-06 10:12 | Outpatient (AMB) | payer MEDICAID, SELFPAY ==
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
[2024-03-06 10:31] VITALS: BP 140/90; PULSE 90; RESP 16; O2SAT 97; BMI 45.4
== END 2024-03-06 10:56 | disposition home or self-care (01) ==
LOC: HO.PMC 10:13
PROVIDERS: PCP Nurse Practitioner Primary Care; Visit Provider Anesthesiology
DX: M53.3 Sacrococcygeal disorders, not elsewhere classified (principal)
CPT/HCPCS: 99213

== ENCOUNTER → 2024-03-06 10:12 | Outpatient (BNVA) | payer MEDICAID, SELFPAY | PROVIDERS: PCP Nurse Practitioner Primary Care; Visit Provider Anesthesiology | DX: M53.3 Sacrococcygeal disorders, not elsewhere classified (principal); Z96.82 Presence of neurostimulator | CPT/HCPCS: 99212 ==

== ENCOUNTER 2024-09-12 09:02 | Outpatient (REF) | payer MEDICAID, SELFPAY ==
--- OUTSIDE RECORDS SUMMARY | 2024-09-12 09:14 | XMS_ITS | Encounter Summary ---
Author Organization [facility] Address [address] [place] [address] Care Team Providers Care Him Assistant Name Role Phone Gabrielle Shea Primary Care Provider [phone] Reason for Visit * Reason Onset Date Comments Med Refill 06/25/2023 Encounter Details Date Type Department Care Team (Late st Contact Info) Description 06/25/2023 Refill [facility] [address] [place], [place] [phone] Gabrielle Shea ANP [address] [place] [address] Social History Tobacco Use Types Packs/Day Years Used Date Smoking Tobacco: Never Smokeless Tobacco: Never Alcohol Use Standard Drinks/Week Comments Not Currently 0 (1 standard drink = 0.6 oz pur e alcohol) Depression Answer Date Recorded Patient Health Questionnaire-9 Score 18 06/26/2023 Patient Health Questionnaire-9 Score 18 06/26/2023 Last PHQ-9: Questionnaire Data Not on file 0 06/26/2023 Housing Stability Answer Date Recorded What is your housing situation today? I have aminata kerns 02/06/[address] you li ve. Do you have problems with any of the following? Pests such as bugs, ants, or mice 02/06/2023 Food Insecurity Answer Date Recorded Within the past 12 months, y ou worried that your food would run out before you got money to buy more: Never True 02/16/2023 Within the past 12 months,th e food you bought just didn't last and you didn't have enough money to get more: Never True Transportation Answer Date Recorded In the past 12 months, has l ack of transportation kept you from medical appts, meetings, work or from getting things needed for daily living? No 02/16/2023 Utilities Answer Date Recorded In the past 12 months, has t he electric, gas, oil or water company threatened to shut off services in your home? No 02/16/2023 Depression Answer Date Recorded Patient Health Questionnaire-2 Score 6 06/26/2023 Comments Unknown Sex and Gender Information Value Date Recorded Sex Assigned at Female 02/27/2022 10:16 AM EDT Legal Sex Female 10:16 AM EDT Gender Identity Female 02/27/2022 10:16 AM EDT Sexual Orientation Straight 02/27/2022 10 :16 AM EDT documented as of this encounter Functional Status * Over the past 2 weeks, how often have you been bothered by any of the following problems? Question Answer Date of Assessment Author Patient Health Questionnaire -2 Score 6 06/26/2023 3:16 PM Nkechi Gonzales * If you checked off any problems on this questionnaire so far, Question Answer Date of Assessment Author How difficult have these problems made it for you to do your work, take care of things at home, or get along with other people? Very difficult 06/26/2023 3:16 PM Nkechi Gonzales * Over the past 2 weeks, how often have you been bothered by any of the following problems? Question Answer Date of Assessment Author Little interest or pleasure in doing things Nearly every day 06/26/2023 3:16 PM Keturah Hung Feeling down, depressed, or hopeless Nearly every day 06/26/2023 3:16 PM Keturah Gonzales Trouble falling or staying asleep, or sleeping too much Nearly every day 06/26/2023 3:16 PM Keturah Gonzales Feeling tired or having little energy Nearly every day 06/26/2023 3:16 PM Keturah Gonzales Poor appetite or overeating Nearly every day 06/26/2023 3:16 PM Keturah Gonzales Feeling bad about yourself - or that you are a failure or have let yourself or your family down Several days 06/26/2023 3:16 PM Keturah Gonzales Trouble concentrating on things, such as reading the newspaper or watching television Several days 06/26/2023 3:16 PM Keturah Gonzales Moving or speaking so slowly that other people could have noticed? Or the opposite - being so fidgety or restless that you have been moving around a lot more than usual. Several days 06/26/2023 3:16 PM Keturah Gonzales Thoughts that you would be better off or hurting yourself in some way Not at all 06/26/2023 3:16 PM Keturah Gonzales Patient Health Questionnaire-9 Score 18 06/26/2023 3:16 PM Keturah Gonzales documented as of this encounter Plan of Treatment Upcoming Encounters Date Type Department Care Team (Late st Contact Info) Description 11/21/2024 9:00 AM EDT Office Visit [facility] MED[facility]INE [address] [place] [address] Gabrielle Shea ANP [address] [place] [address] documented as of this encounter Visit Diagnoses Not on filedocumented in this encounter Care Teams Him Assistant Relationship Specialty Start Date End Date Gabrielle Shea ANP [address] [place] [address] PCP - General Family Medicine 12/20/20 documented as of this encounter
--- OUTSIDE RECORDS SUMMARY | 2024-09-12 09:14 | XMS_ITS | Encounter Summary ---
Author Organization [facility] Address [address] [place] [address] Care Team Providers Care Pediatric Oncology Nurse Name Role Phone Monse Gabrielle WHITE Primary Care Provider [phone] Reason for Visit * Reason Onset Date Comments Med Refill 07/31/2023 Encounter Details Date Type Department Care Team (Late st Contact Info) Description 07/31/2023 Refill [facility] [address] [place], [place] [phone] Lori García MD [address] [place] [address] Neck pain; Upper back pain; Acute bilateral low back pain without sciatica Social History Tobacco Use Types Packs/Day Years [...] AM EDT documented as of this encounter Plan of Treatment Upcoming Encounters Date Type Department Care Team (Late st Contact Info) Description 11/21/2024 9:00 AM EDT Office Visit [facility] [address] [place] [address] Gabrielle Shea ANP [address] [place] [address] documented as of this encounter Visit Diagnoses Diagnosis Neck pain Cervicalgia Upper back pain Unspecified backache Acute bilateral low back pain without sciatica documented in this encounter Additional Health Concerns Assessment Noted Time PHQ-9 Depression Total Score: 18 024 3:16 PM EST documented as of this encounter Care Teams Pediatric Oncology Nurse Relationship Specialty Start Date End Date Gabrielle Shea ANP [address] [place] [id number] PCP - General Family Medicine 12/20/20 documented as of this encounter
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
--- OUTSIDE RECORDS SUMMARY | 2024-09-12 09:14 | XMS_ITS | Encounter Summary ---
Author Organization [employer] Address [address] [facility] [address] [place] [address] Care Team Providers Care Automatic Hemmer Name Role Phone Monse Gabrielle WHITE Primary Care Provider [phone] Reason for Visit * Reason Onset Date Comments Med Refill 07/31/2023 Encounter Details Date Type Department Care Team (Late st Contact Info) Description 07/31/2023 Refill [facility]INE [address] [place] [address] Jessie Guzmán MD [address] [place] [address] Social History Tobacco Use Types Packs/Day Years [...] Description 11/21/2024 9:00 AM EDT Office Visit [facility] MED[facility]INE [address] [place] [phone] Gabrielle Shea ANP [address] [place] [address] documented as of this encounter Visit Diagnoses Not on filedocumented in this encounter Additional Health Concerns Assessment Noted Time PHQ-9 Depression Total Score: 18 024 3:16 PM EST documented as of this encounter Care Teams Automatic Hemmer Relationship Specialty Start Date End Date Gabrielle Shea ANP [address] [place] [id number] PCP - General Family Medicine 12/20/20 documented as of this encounter
--- OUTSIDE RECORDS SUMMARY | 2024-09-12 09:14 | XMS_ITS | Encounter Summary ---
Author Organization [employer] Address [address] [facility] [address] [place] [address] Care Team Providers Care Machine Operator Hay Stacker Name Role Phone Monse Gabrielle WHITE Primary Care Provider [phone] Reason for Visit * Reason Onset Date Comments Med Refill 06/25/2023 Encounter Details Date Type Department Care Team (Late st Contact Info) Description 06/25/2023 Refill [facility]INE [address] [place] [address] Jessie Guzmán MD [address] [place] [address] Social History Tobacco Use Types Packs/Day Years [...] Description 11/21/2024 9:00 AM EDT Office Visit [facility] [address] [place] [address] Gabrielle Shea ANP [address] [place] [address] documented as of this encounter Visit Diagnoses Not on filedocumented in this encounter Care Teams Machine Operator Hay Stacker Relationship Specialty Start Date End Date Gabrielle Shea ANP [address] [place] [address] PCP - General Family Medicine 12/20/20 documented as of this encounter
--- OUTSIDE RECORDS SUMMARY | 2024-09-12 09:14 | XMS_ITS | Encounter Summary ---
Author Organization [employer] Address [address] [facility] [address] [place] [address] Care Team Providers Care Curator Name Role Phone Monse Gabrielle WHITE Primary Care Provider [phone] Reason for Visit * Reason Onset Date Comments Lab Orders 09/12/2024 Encounter Details Date Type Department Care Team ([facility] st Contact Info) Description 09/12/2024 Telephone [facility] MEDICINE [address] [place], [place] [phone] Alessandra Cordova RN [address] [place] [address] Lab Orders Social History Tobacco Use Types Packs/Day Years [...] AM EDT documented as of this encounter Miscellaneous Notes * Telephone Encounter - Alessandra Cordova RN - 09/12/2024 8:56 AM EDT Pt walked into green team lobby reporting that she needs MMR, Varica\anaya, and Hep B for work. Titer orders placed. Advised to get drawn today. Results available on MyChart within 24-48hrs. If not immune, will start series for whichever she is not immune to. Pt agrees with plan. documented in this encounter Plan of Treatment Upcoming Encounters Date Type Department Care Team (Late st Contact Info) Description 11/21/2024 9:00 AM EDT Office Visit [facility] MED[facility]INE [address] [place] [address] Gabrielle Shea ANP [address] [place] [address] Scheduled Orders Name Type Priority Associated Diagnoses Orde r Schedule Measles, Mumps, and Rubella (MMR) Antibodies??(IgG) Panel, Immune Status Lab Routine Immunity status testing Expected: 09/12/2024 (Approximate), Expires: 09/12/2025 Varicella Zoster Antibody, IgG Lab Routine Immunity status testing Expected: 09/12/2024 (Approximate), Expires: 09/12/2025 Hepatitis B Surface Antibody, Qualitative Lab Routine Immunity status testing Expected: 09/12/2024 (Approximate), Expires: 09/12/2025 Hepatitis B Core Antibody, Total Lab Routine Immunity status testing Expected: 09/12/2024 (Approximate), Expires: 09/12/2025 Hepatitis B surface antigen, EIA Lab Routine Immunity status testing Expected: 09/12/2024 (Approximate), Expires: 09/12/2025 documented as of this encounter Visit Diagnoses Diagnosis Immunity status testing Antibody response examination documented in this encounter Additional Health Concerns Assessment Noted Time PHQ-9 Depression Total Score: 4 05/21/19 25 2:34 PM EST documented as of this encounter Care Teams Curator Relationship Specialty Start Date End Date Gabrielle Shea ANP [address] [place] [address] PCP - General Family Medicine 12/20/20 documented as of this encounter
--- OUTSIDE RECORDS SUMMARY | 2024-09-12 09:15 | XMS_ITS | Encounter Summary ---
Author Organization [employer] Address [address] [place] [address] [address] [place] [address] Care Team Providers Care Elderly Caregiver Name Role Phone Gabrielle Shea Primary Care Provider [phone] Reason for Visit * Reason Comments Med Refill Encounter Details Date Type Department Care Team (Late st Contact Info) Description 11/30/2022 Refill [facility] [address], [place] [phone] Gabrielle Shea ANP [address] [place] [address] Chronic bilateral low back pain, unspecified whether sciatica present Social History Tobacco Use Types Packs/Day Years Used Date Smoking Tobacco: Never Smokeless Tobacco: Never Alcohol Use Standard Drinks/Week Comments Not Currently 0 (1 standard drink = 0.6 oz pur e alcohol) Comments Unknown Sex and Gender Information Value [...] Description 11/21/2024 9:00 AM EDT Office Visit [facility] [address] [place] [address] Gabrielle Shea ANP [address] [place], [place] [phone] documented as of this encounter Visit Diagnoses Diagnosis Chronic bilateral low back pain, unspecified whether sciatica present documented in this encounter Care Teams Elderly Caregiver Relationship Specialty Start Date End Date Gabrielle Shea ANP [address] [place] [address] PCP - General Family Medicine 12/20/20 documented as of this encounter
--- OUTSIDE RECORDS SUMMARY | 2024-09-12 09:15 | XMS_ITS | Clinical Summary ---
Author Organization 175 [facility] Address [address] [place] [address] Phone Care Team Providers Care Oil Lease Buyer Name Role Phone Gabrielle Shea NP Primary Care Provider [phone] Allergies Active Allergy Reactions Criticality Noted Date Comments Hydroxyzine Hives 05/08/2023 Nitrofurantoin Dizziness 08/06/2024 Wheat Bran 05/08/2023 Medications albuterol HFA (Ventolin HFA) 90 mcg/actuation inhaler 1 puff. 04/25/20 23 Active SUMAtriptan (IMITREX) 100 mg tablet Take 1 tablet (100 mg total) by mouth 1 (one) time if needed for migraine. FOR UP TO 9 DOSES. 04/16/20 23 Active ergocalciferol (VITAMIN D-2) 1,250 mcg (50,000 unit) capsule Take 1 capsule (50,000 Units total) by mouth 1 (one) time per week. 12 each 05/27/19 25 026 Active ferrous sulfate 325 mg (65 mg iron) EC tablet Take 1 tablet (325 mg total) by mouth 3 (three) times a day with meals. Do not crush, chew, or split. Active topiramate (TOPAMAX SPRINKLE) 25 mg capsule Take 2 capsules (50 mg total) by mouth 1 (one) time each day. Do not crush or chew. Active acetaminophen (TYLENOL) 500 mg tablet Take 2 tablets (1,000 mg total) by mouth every 8 (eight) hours. 180 tablet 08/07/19 25 Active pantoprazole (PROTONIX) 40 mg EC tablet Take 1 tablet (40 mg total) by mouth 1 (one) time each day before breakfast. Do not crush, chew, or split. 30 each 2 08/07/19 25 025 Active simethicone (MYLICON) 80 mg chewable tablet Chew 1 tablet (80 mg total) every 6 (six) hours if needed for flatulence. 30 tablet 08/07/19 25 Active wheat dextrin 3 gram/3.5 gram powder in packet Take 1 packet by mouth 1 (one) time each day. 30 packet 08/07/19 25 Active oxyCODONE (ROXICODONE) 5 mg immediate release tablet Take 1 tablet (5 mg total) by mouth every 4 (four) hours if needed for severe pain. Max Daily Amount: 30 mg 12 tablet 08/16/19 25 Active cyclobenzaprin e (FLEXERIL) 10 mg tablet Take 1 tablet (10 mg total) by mouth 3 (three) times a day for 14 days. 42 each 09/02/19 25 025 Active traMADoL (ULTRAM) 50 mg tablet 1 tablet (50 mg total). 04/27/20 23 025 Discontinued(St op Taking at Discharge) ondansetron (ZOFRAN) 4 mg tablet Take 1 tablet (4 mg total) by mouth every 8 (eight) hours if needed for nausea or vomiting for up to 7 days. 20 tablet 08/07/19 25 025 Discontinued polyethylene glycol (MIRALAX) 17 gram packet Take 17 g by mouth 1 (one) time each day. 510 g 08/07/19 25 025 ondansetron (ZOFRAN) 4 mg tablet Take 1 tablet (4 mg total) by mouth every 8 (eight) hours if needed for nausea or vomiting for up to 7 days. 20 tablet 08/16/19 25 025 Active Problems Problem Noted Date Diagnosed Date Intestinal metaplasia of stomach without dysplas ia 08/29/2024 S/P gastric sleeve procedure 08/29/2024 Morbid obesity with BMI of 4 0.0-44.9, adult ([facility] V24, [facility] V28) 06/04/2024 Class 3 severe obesity with body mass index (BMI) of 40.0 to 44.9 in adult ([facility] V24, [facility] V28) 02/07/2024 Chronic back pain 05/30/2023 Anxiety 05/30/2023 Urticaria 05/30/2023 Angioedema 05/30/2023 Resolved Problems Problem Noted Date Diagnosed Date Resolved Date Abdominal pain 08/31/2024 09/01/2024 Encounters Date Type Department Care Team Description 09/04/2024 9:30 AM EDT Telemedicine Bariatric Surgery [address] [phone] Class 3 severe obesity with body mass index (BMI) of 40.0 to 44.9 in adult, unspecified obesity type, unspecified whether serious comorbidity present ([facility] V24, [facility] V28) (Primary Dx) 08/31/2024 8:19 PM EDT - 09/01/2024 3:48 PM EDT Hospital Encounter [facility] [address] [place] [address] Tony Aquino MD Millay, Scot A, MD Ogrodnik, Aleksandra P, MD Generalized abdominal pain (Primary Dx); Nausea and vomiting, unspecified vomiting type Discharge Disposition: Home or Self Care 08/28/2024 9:00 AM EDT Office Visit Bariatric Surgery [address] [phone] Samina Witt MD S/P gastric sleeve procedure (Primary Dx); Obesity, Class III, BMI 40-49.9 (morbid obesity); Intestinal metaplasia of stomach without dysplasia 08/19/2024 Telephone Bariatric Surgery [address] [phone] Nani Carvajal RN 08/14/2024 7:30 AM EDT Anesthesia Event [facility] Main OR [address] [place] [address] Ranjeet Jacobs MD Burton, Heather, CRNA 08/14/2024 7:30 AM EDT - 08/14/2024 10:00 AM EDT Surgery [facility] Main OR [address] [place] [phone] Samina Witt MD DAVINCI SLEEVE GASTRECTOMY [12098 (CPT??)] 08/14/2024 5:35 AM EDT - 08/15/2024 9:02 PM EDT Hospital Encounter [facility] [address] [place] [address] Samina Witt MD Morbid obesity with BMI of 40.0-44.9, adult ([facility] V24, [facility] V28) Discharge Disposition: Home or Self Care 08/06/2024 3:36 PM EDT - 08/06/2024 11:59 PM EDT Hospital Encounter [facility] Xray [address] [place] [phone] Preop testing Discharge Disposition: Home or Self Care 08/06/2024 2:45 PM EDT Consult Bariatric Surgery - [address] [phone] Samina Witt MD Class 3 severe obesity with body mass index (BMI) of 40.0 to 44.9 in adult, unspecified obesity type, unspecified whether serious comorbidity present (CMS/HCC V24, [facility] V28) (Primary Dx) 07/29/2024 Telephone Bariatric Surgery - [address] [phone] Samina Witt MD 07/28/2024 Telephone Bariatric Surgery - [address] [phone] Samina Witt MD Advice Only 07/21/2024 8:30 AM EDT Nutrition Bariatric Surgery - [address] [phone] Amy [address] Class 3 severe obesity with body mass index (BMI) of 40.0 to 44.9 in adult, unspecified obesity type, unspecified whether serious comorbidity present ([facility] V24, [facility] V28) (Primary Dx) from Last 3 Months Surgical History Surgery Date Site/Laterality Comments OTHER SURGICAL HISTORY CHOLECYSTECTOMY TUBAL LIGATION ABLATION uterine INSERTION / REMOVAL EPIDURAL SPINAL NEUROSTIMULATOR GASTRIC BYPASS Medical History Medical History Date Comments Asthma Anemia History of transfusion Social History Tobacco Use Types Packs/Day Years Used Date Smoking Tobacco: Never Smokeless Tobacco: Never Tobacco Cessation:Counseling Given: Not Answered Housing Instability Answer Date Recorde d Are you worried that in the next 2 months you may not have stable housing? No 09/01/2024 Food Access & Nutrition Answer Date Rec orded Do you have access to a vari ety of food including fruits and vegetables? Yes 09/01/2024 Access to Healthcare Answer Date Record ed Within the last 3 months, edilson valle many times did you visit the emergency department for your medical care? 2 09/01/2024 Health Literacy Answer Date Recorded How often do you need to hav e someone help you when you read instructions, pamphlets, or other written material from your doctor or pharmacy? Never 09/01/2024 Caregiver: How often do you need to have someone help you when you read instructions, pamphlets, or other written material from your doctor or pharmacy? Not on file 09/01/2024 Financial Risk Answer Date Recorded How hard is it for you to pa y for the very basics like food, housing, medical care, and air conditioning / heating? Not very hard 09/01/2024 Transportation Answer Date Recorded Has the lack of transportati on kept you from meetings, work, or from getting things needed for daily living? No Has the lack of transportati on kept you from medical appointments or from getting medications? No 09/01/2024 Social Isolation Answer Date Recorded How often do you feel lonely or isolated from those around you? Sometimes 09/01/2024 Food Risk Answer Date Recorded Within the past 12 months we worried whether our food would run out before we got money to buy more. Never true 09/01/2024 Within the past 12 months th e food we bought just didn't last and we didn't have money to get more. Never true 09/01/2024 Dependent Care Answer Date Recorded Do you need help finding or paying for care for your loved ones. For example, child psychology teacher or elderly care for an older adult? No 09/01/2024 Education Answer Date Recorded Do you think completing more education or training, like finishing a GED, going to college, or learning a trade, would be helpful for you? Yes 09/01/2024 Employment and Income Answer Date Recor ded During the last four weeks, have you been actively looking for work? No 09/01/2024 Living Situation Answer Date Recorded What is your living situation? 0 09/01/2024 Interpersonal Safety Answer Date Record ed Physical Abuse 09/01/2024 Verbal Abuse 09/01/2024 Comments No Sex and Gender Information Value Date Recorded Sex Assigned at Female 07/28/2024 12:40 PM EDT Legal Sex Female 8:58 PM EST Gender Identity Female 07/28/2024 12:40 PM EDT Sexual Orientation Straight 07/28/2024 12 :40 PM EDT Obstetrics History Last Filed Vital Signs Vital Sign Reading Time Taken Comments Blood Pressure 117/58 09/01/2024 12:13 AM EDT Pulse 64 09/01/2024 12:13 AM EDT Temperature 36.4 ??C (97.5 ??F) 09/01/2024 12:13 AM E DT Respiratory Rate 18 09/01/2024 12:13 AM EDT Oxygen Saturation 100% 09/01/2024 12:13 AM EDT Inhaled Oxygen Concentration - - Weight 117 kg (258 lb) 09/04/2024 9:00 AM EDT Height 170 cm (5' 6.93 ) 09/01/2024 12:13 AM EDT Body Mass Index 40.49 09/01/2024 12:13 AM EDT Plan of Treatment Upcoming Encounters Date Type Department Care Team (Late st Contact Info) Description 10/20/2024 9:00 AM EDT Office Visit Bariatric Surgery - [place] [facility] [address] [place] [address] Samina Witt MD [address] [facility] [address] [place] [address] Health Maintenance Due Date Last Done Comments Breast Cancer Screening 1982 Hepatitis B Vaccines (1 of 3 - 19+ 3-dose series) 2001 Pneumococcal Vaccine: Pediatrics (0 to 5 Years) and At-Risk Patients (6 to 64 Years) (1 of 2 - PCV) 2001 Cervical Cancer Screening: Pap Smear 08/22/2003 HIV Screening 05/25/2023 Hepatitis C Screening 05/25/2023 COVID-19 Vaccine ( - season) 2023 04/24/2023, 04/21/2022, 03/11/2021, Additional history exists Depression Screening 05/21/2025 05/21/2024 Hypertension/CHF/CAD Annual BMP Blood Test 09/01/2025 09/01/2024, 08/31/2024, 08/15/2024, Additional history exists Social Influencers of Health Screening 09/01/2025 09/01/2024 Cholesterol Screening (Lipid Panel) 05/12/2029 05/12/2024, 02/06/2023 DTaP,Tdap,and Td Vaccines (3 - Td or Tdap) 07/08/2029 07/09/2019, 06/23/2015 MMR Vaccines Aged Out 09/16/2015 No longer eligi ble based on patient's age to complete this topic Hepatitis A Vaccines Aged Out 07/09/2019, 12/14/19 [...] patient's age to complete this topic Meningococcal ACWY Vaccine Aged Out N o longer eligible based on patient's age to complete this topic Meningococcal B Vaccine Aged Out No l onger eligible based on patient's age to complete this topic RSV Immunization Patients Under 20 months Aged Out No longer eligible based on patient's age to complete this topic Varicella Vaccines Aged Out No longer eligible based on patient's age to complete this topic Procedures Procedure Name Priority Date/Time Associated Diagnosis Comments LIPASE Add-On 09/01/2024 5:43 AM EDT CBC WITH AUTO DIFFERENTIAL Routine 09/01/2024 5:43 AM EDT COMPREHENSIVE METABOLIC PANEL Routine 09/01/2024 5:43 AM EDT CBC AND DIFFERENTIAL Routine 09/01/2024 5:[address] ABDOMEN PELVIS W CONTRAST STAT 08/31/2024 11:08 PM EDT POC , URINE DIAGNOSTIC STAT 08/31/2024 6:42 PM EDT CBC WITH AUTO DIFFERENTIAL STAT 08/31/2024 6:32 PM EDT LIPASE STAT 08/31/2024 6:32 PM EDT COMPREHENSIVE METABOLIC PANEL STAT 08/31/2024 6:32 PM EDT CBC AND DIFFERENTIAL STAT 08/31/2024 6:32 PM EDT CBC WITH AUTO DIFFERENTIAL Routine 08/15/2024 6:10 AM EDT MAGNESIUM Routine 08/15/2024 6:10 AM EDT CBC AND DIFFERENTIAL Routine 08/15/2024 6:10 AM EDT BASIC METABOLIC PANEL Routine 08/15/2024 6:10 AM EDT OXYGEN THERAPY, ADULT Routine 08/14/2024 9:53 AM EDT TISSUE EXAM Routine 08/14/2024 9:06 AM EDT Morbid obesity with BMI of 40.0-44.9, adult (CMS/HCC V24, CMS/HCC V28) TH AN ENDOTRACHEAL(NO CHARGE) Routine 08/14/2024 8:04 AM EDT IN LAP SURGICAL GASTRIC RESTRICTIVE PROCEDURE LONGITUDINAL GASTRECTOMY 08/14/2024 7:30 AM EDT Morbid obesity with BMI of 40.0-44.9, adult (CMS/HCC V24, CMS/HCC V28) POC PREGANCY, URINE SCREENING Routine 08/14/2024 6:03 AM EDT XR CHEST 2 VIEWS STAT 08/06/2024 3:48 PM EDT Preop testing CBC WITH AUTO DIFFERENTIAL Routine 07/28/2024 12:50 PM EDT Morbid obesity with BMI of 40.0-44.9, adult (CMS/HCC V24, CMS/HCC V28) COMPREHENSIVE METABOLIC PANEL Routine 07/28/2024 12:50 PM EDT Morbid obesity with BMI of 40.0-44.9, adult (CMS/HCC V24, CMS/HCC V28) CBC AND DIFFERENTIAL Routine 07/28/2024 12:50 PM EDT Morbid obesity with BMI of 40.0-44.9, adult (CMS/HCC V24, CMS/HCC V28) PROTHROMBIN TIME WITH INR Routine 07/28/2024 12:50 PM EDT Morbid obesity with BMI of 40.0-44.9, adult (CMS/HCC V24, CMS/HCC V28) TYPE AND SCREEN Routine 07/28/2024 12:50 PM EDT Morbid obesity with BMI of 40.0-44.9, adult (CMS/HCC V24, CMS/HCC V28) LIPID PANEL WITH REFLEX TO DIRECT LDL Routine 05/12/2024 7:50 AM EST Class 3 severe obesity with body mass index (BMI) of 45.0 to 49.9 in adult, unspecified obesity type, unspecified whether serious comorbidity present (CMS/HCC V24, CMS/HCC V28) from Last 3 Months or Most Recently Relevant to Health Maintenance Results * (ABNORMAL) CBC auto differential (09/01/2024 5:43 AM EDT) Only the most recent of4 resultswithin the time period is included. WBC 6.6 4.8 - 10.8 K/[facility] LAB HEMETOLOGY METHOD 09/01/2024 6:53 AM [facility] RBC 3.50(L) 3.80 - 4.80 M/mcL LAB HEMETOLOGY METHOD 09/01/2024 6:53 AM [facility] Hemoglobin 9.5(L) 11.5 - 16.0 g/dL LAB HEMETOLOGY METHOD 09/01/2024 6:53 AM [facility] Hematocrit 30.2(L) 35.0 - 47.0 % LAB HEMETOLOGY METHOD 09/01/2024 6:53 AM [facility] MCV 86.3 79.0 - 98.0 FL LAB HEMETOLOGY METHOD 09/01/2024 6:53 AM [facility] MCH 27.1 27.0 - 32.0 pcg LAB HEMETOLOGY METHOD 09/01/2024 6:53 AM [facility] MCHC 31.5(L) 32.0 - 37.0 g/dL LAB HEMETOLOGY METHOD 09/01/2024 6:53 AM [facility] RDW 15.8(H) 11.0 - 15.0 % LAB HEMETOLOGY METHOD 09/01/2024 6:53 AM [facility] Platelets 339 130 - 400 K/mcL LAB HEMETOLOGY METHOD 09/01/2024 6:53 AM [facility] MPV 9.6 7.0 - 11.0 FL LAB HEMETOLOGY METHOD 09/01/2024 6:53 AM [facility] NRBC 0.0 <1.0 % LAB HEMETOLOGY METHOD 09/01/2024 6:53 AM [facility] NRBC Absolute 0.00 <0.10 K/mcL LAB HEMETOLOGY METHOD 09/01/2024 6:53 AM [facility] Neutrophils Relative 42.0 % LAB HEMETOLOGY METHOD 09/01/2024 6:53 AM [facility] Lymphocytes Relative 47.6 % LAB HEMETOLOGY METHOD 09/01/2024 6:53 AM [facility] Monocytes Relative 7.6 % LAB HEMETOLOGY METHOD 09/01/2024 6:53 AM [facility] Eosinophils Relative 2.1 % LAB HEMETOLOGY METHOD 09/01/2024 6:53 AM [facility] Basophils Relative 0.5 % LAB HEMETOLOGY METHOD 09/01/2024 6:53 AM [facility] Immature Granulocytes Relative 0.2 % LAB HEMETOLOGY METHOD 09/01/2024 6:53 AM [facility] Neutrophils Absolute 2.76 1.50 - 7.00 K/mcL LAB HEMETOLOGY METHOD 09/01/2024 6:53 AM [facility] Lymphocytes Absolute 3.12 1.00 - 5.00 K/mcL LAB HEMETOLOGY METHOD 09/01/2024 6:53 AM [facility] Monocytes Absolute 0.50 0.20 - 1.00 K/mcL LAB HEMETOLOGY METHOD 09/01/2024 6:53 AM [facility] Eosinophils Absolute 0.14 0.00 - 0.50 K/mcL LAB HEMETOLOGY METHOD 09/01/2024 6:53 AM [facility] Basophils Absolute 0.03 0.00 - 0.20 K/mcL LAB HEMETOLOGY METHOD 09/01/2024 6:53 AM [facility] Immature Granulocytes Absolute 0.01 0.00 - 0.03 K/mcL LAB HEMETOLOGY METHOD 09/01/2024 6:53 AM [facility] Blood Venous blood specimen / Unknown Venipuncture / Unknown 09/01/2024 5:43 AM EDT 09/01/2024 6:17 AM EDT Guzman JASSO LAB BLOOD ORDERABLES Final Re sult Performing Organization Address [facility]/ZIP Co de Phone Number [facility] [address] [place] [address], [place] [phone] * (ABNORMAL) Lipase (09/01/2024 5:43 AM EDT) Only the most recent of2 resultswithin the time period is included. Lipase 231(H) 13 - 75 unit/L LAB CHEMISTRY METHOD 09/01/2024 8:[address] [facility] Blood Venous blood specimen / Unknown Venipuncture / Unknown 09/01/2024 5:43 AM EDT 09/01/2024 6:17 AM EDT Trina JASSO LAB BLOOD ORDERABLES Final Re sult Performing Organization Address [facility] Co de Phone Number [facility] [address] [place] [address], [place] [phone] * Comprehensive metabolic panel (09/01/2024 5:43 AM EDT) Only the most recent of3 resultswithin the time period is included. Sodium 140 133 - 145 mmol/L LAB CHEMISTRY METHOD 09/01/2024 6:[address] [facility] Potassium 3.5 3.5 - 5.5 mmol/L LAB CHEMISTRY METHOD 09/01/2024 6:[address] [facility] Chloride 107 96 - 110 mmol/L LAB CHEMISTRY METHOD 09/01/2024 6:[address] [facility] CO2 26 21 - 32 mmol/L LAB CHEMISTRY METHOD 09/01/2024 6:[address] [facility] Anion Gap 7 3 - 11 LAB CHEMISTRY METHOD 09/01/2024 6:53 AM [facility] Glucose 94 70 - 100 mg/dL LAB CHEMISTRY METHOD 09/01/2024 6:53 AM [facility] BUN 13 5 - 25 mg/dL LAB CHEMISTRY METHOD 09/01/2024 6:53 AM [facility] Creatinine 0.64 0.50 - 1.10 mg/dL LAB CHEMISTRY METHOD 09/01/2024 6:53 AM [facility] eGFR 113 >=60 mL/min/1. 73m2 LAB CHEMISTRY METHOD 09/01/2024 6:53 AM [facility] Comment:Calculation based on the??Chronic Kidney Disease Epidemiology Collaboration (CKD-EPI) equation refit??without adjustment for race. BUN/Creatinine Ratio 20.3 LAB CHEMISTRY METHOD 09/01/2024 6:53 AM [facility] Calcium 9.1 8.5 - 10.5 mg/dL LAB CHEMISTRY METHOD 09/01/2024 6:53 AM [facility] AST (SGOT) 12 10 - 42 unit/L LAB CHEMISTRY METHOD 09/01/2024 6:53 AM [facility] ALT (SGPT) 19 10 - 60 unit/L LAB CHEMISTRY METHOD 09/01/2024 6:53 AM [facility] Alkaline Phosphatase 57 42 - 121 unit/L LAB CHEMISTRY METHOD 09/01/2024 6:53 AM [facility] Total Protein 6.7 6.0 - 8.0 g/dL LAB CHEMISTRY METHOD 09/01/2024 6:53 AM [facility] Albumin 3.2 3.2 - 5.0 g/dL LAB CHEMISTRY METHOD 09/01/2024 6:53 AM [facility] Total Bilirubin 0.6 0.0 - 1.4 mg/dL LAB CHEMISTRY METHOD 09/01/2024 6:53 AM [facility] Blood Venous blood specimen / Unknown Venipuncture / Unknown 09/01/2024 5:43 AM EDT 09/01/2024 6:17 AM EDT us Guzman JASOS LAB BLOOD ORDERABLES Final Re sult [facility] [address] [place] [address], * CT Abdomen Pelvis w Contrast (08/31/2024 11:08 PM EDT) Anatomical Region Laterality Modality Body Computed Tomogra phy 08/31/2024 11:4 0 PM EDT Impressions 08/31/2024 11:40 PM EDT No acute findings. This document has been electronically signed by: Koffi Carr MD on 08/31/2024 23:40:15 Narrative 08/31/2024 11:40 PM EDT INDICATION: Abdominal abscess/infection suspected CT abdomen and pelvis with contrast Comparison: None Findings: No consolidation or effusion. There appears to have been previous gastric sleeve surgery. Spleen, adrenal glands, pancreas and liver are unremarkable. Gallbladder is absent. There are bilateral peripelvic renal cysts. No hydronephrosis. No renal or ureteral stones. No bowel obstruction, pneumoperitoneum, or pneumatosis. There are calcified granulomata in the anterior right abdomen. No retroperitoneal or pelvic adenopathy. No inguinal lymphadenopathy. Within the uterine fundus there are 2 adjacent hypo attenuating masses which are likely small uterine fibroids. Ovaries are unremarkable. No ascites. No lytic or blastic bone lesions. Small fat containing umbilical hernia. There are 2 leads noted within the subcutaneous fat of the back which do not appear to be attached to anything. Procedure Note Koffi Carr MD - 08/31/2024 INDICATION: Abdominal abscess/infection suspected CT abdomen and pelvis with contrast Comparison: None Findings: No consolidation or effusion. There appears to have been previous gastric sleeve surgery. Spleen, adrenal glands, pancreas and liver are unremarkable. Gallbladder is absent. There are bilateral peripelvic renal cysts. No hydronephrosis. No renalor ureteral stones. No bowel obstruction, pneumoperitoneum, or pneumatosis. There are calcified granulomata in the anterior right abdomen. No retroperitoneal or pelvic adenopathy. No inguinal lymphadenopathy. Within the uterine fundus there are 2 adjacent hypo attenuating masses which are likely small uterine fibroids. Ovaries are unremarkable. No ascites. No lytic or blastic bone lesions. Small fat containing umbilical hernia. There are 2 leads noted within the subcutaneous fat of the back which do not appear to be attached to anything. IMPRESSION: No acute findings. This document has been electronically signed by: Koffi Carr MD on 08/31/2024 23:40:15 Tony Aquino MD IMG CT PROCEDURES Final R esult * POC , urine manually resulted (08/31/2024 6:42 PM EDT) [facility] HCG, Ur POC Negative Negative POC hCG Int QC Pass? Yes Yes Urine Urine specimen obtained by clean catch procedure / Unknown 08/31/2024 6:42 PM EDT Des Silva MD POINT OF CARE TEST ENTER/EDIT O RDERABLES Final Result * Magnesium (08/15/2024 6:10 AM EDT) [facility] Magnesium 2.1 1.9 - 2.6 mg/dL LAB CHEMISTRY METHOD 08/15/2024 7:[address] [facility] Blood Venous blood specimen / Unknown Venipuncture / Unknown 08/15/2024 6:10 AM EDT 08/15/2024 6:44 AM EDT Trina JASSO LAB BLOOD ORDERABLES Final Re sult [facility] [address] [place] [address], [place] [phone] * (ABNORMAL) Basic metabolic panel (08/15/2024 6:10 AM EDT) [facility] Sodium 138 133 - 145 mmol/L LAB CHEMISTRY METHOD 08/15/2024 7:31 AM [facility] Potassium 3.9 3.5 - 5.5 mmol/L LAB CHEMISTRY METHOD 08/15/2024 7:31 AM [facility] Chloride 105 96 - 110 mmol/L LAB CHEMISTRY METHOD 08/15/2024 7:31 AM [facility] CO2 27 21 - 32 mmol/L LAB CHEMISTRY METHOD 08/15/2024 7:31 AM [facility] Anion Gap 6 3 - 11 LAB CHEMISTRY METHOD 08/15/2024 7:31 AM [facility] Glucose 102(H) 70 - 100 mg/dL LAB CHEMISTRY METHOD 08/15/2024 7:31 AM [facility] BUN 10 5 - 25 mg/dL LAB CHEMISTRY METHOD 08/15/2024 7:31 AM [facility] Creatinine 0.70 0.50 - 1.10 mg/dL LAB CHEMISTRY METHOD 08/15/2024 7:31 AM [facility] eGFR 112 >=60 mL/min/1. 73m2 LAB CHEMISTRY METHOD 08/15/2024 7:31 AM [facility] Comment:Calculation based on the??Chronic Kidney Disease Epidemiology Collaboration (CKD-EPI) equation refit??without adjustment for race. BUN/Creatinine Ratio 14.3 LAB CHEMISTRY METHOD 08/15/2024 7:31 AM [facility] Calcium 8.8 8.5 - 10.5 mg/dL LAB CHEMISTRY METHOD 08/15/2024 7:31 AM [facility] Blood Venous blood specimen / Unknown Venipuncture / Unknown 08/15/2024 6:10 AM EDT 08/15/2024 6:44 AM EDT Trina JASSO LAB BLOOD ORDERABLES Final Re sult [facility] [address] [place] [address], * Tissue exam (08/14/2024 9:06 AM EDT) Final Diagnosis Stomach, sleeve gastrectomy: Portion of stomach with active chronic gastritis and focal intestinal metaplasia, negative for dysplasia. No Helicobacter pylori identified. Note: No Helicobacter was identified on routine stains. Because of pattern of gastritis, immunohistochemical stain for H. pylori was performed and is interpreted as negative, supporting the above diagnosis. Control stains appropriately. 4:[address] [facility] Gross Description A. Stomach, : Labeled stomach . Received in formalin is a 15.0 x 3.0 x 2.5's cm pouch of stomach with a linear stapled margin of resection. There is scant attached perigastric adipose tissue. The serosa is pink to red-purple and focally hemorrhagic. The staple line is removed and inked black. The specimen is opened to show a de los santos-pink to red, focally hemorrhagic mucosa with flattened rugal folds. The hemorrhagic mucosa is most prominent in one half of the specimen. Submucosal hemorrhage and blood clot is present. Polyps and masses are absent. Lymph nodes are absent. The luminal contents consist of red, bilious and bloody material. Rn Licensed Practical sections are submitted in one cassette to include a perpendicular section of the margin and random stomach, three pieces. TS 4:[address] [facility] Disclaimer NOTE: The immunohistochemical tests and in situ hybridization tests were developed and their performance characteristics were determined by [facility]. They have not been cleared or approved by the U.S. Food and Drug Administration. The FDA has determined that such clearance or approval is not necessary. These tests are used for clinical purposes. They should not be regarded as investigational or for research. This laboratory is certified under the Clinical Laboratory Improvement Amendments of 1988 (CLIA) as qualified to perform high complexity clinical laboratory testing. (controls appropriate) Unless otherwise specified, all tissue is 10% NB formalin fixed and paraffin embedded. 4:[address] [facility] Tissue Stomach structure / Unknown 08/14/2024 9:06 AM EDT 08/14/2024 11:32 AM EDT Samina Witt MD LAB PATHOLOGY ORDERABLE S Final Result [facility]) [facility] [address] [place] [address], [place] [phone] * TH AN ENDOTRACHEAL(NO CHARGE) (08/14/2024 8:04 AM EDT) Narrative Jayne Malave CRNA - 08/14/2024 8:04 AM EDT Jayne Malave CRNA ? 08/14/2024 ??8:05 AM General Information and Staff Patient location during procedure: OR Resident/WEB PRESS OPERATOR HELPER OFFSET: Jayne Malave CRNA Performed: resident/WEB PRESS OPERATOR HELPER OFFSET/CAA Performed by: Jayne Malave CRNA Authorized by: Ranjeet Jacobs MD ?? Intubation Additional Comments Mask ventilation by rouge presser student Carisa Hernandez- Aanbell/L by Carisa Hernandez- grade 1 view Airway not difficult Urgency: elective Final Airway Details Successful airway: ETT Cuffed: yes Successful intubation technique: direct laryngoscopy Facilitating devices/methods: intubating stylet Endotracheal tube insertion site: oral Blade: Gabriella Blade size: #3 ETT size (mm): 7.0 Cormack-Lehane Classification: grade I - full view of glottis Placement verified by: chest auscultation and capnometry Measured from: lips ETT to lips (cm): 20 Number of attempts at approach: 1Final airway type: endotracheal airway Indications and Patient Condition Indications for airway management: anesthesia Spontaneous Ventilation: absent Sedation level: Yes Preoxygenated: yes Soft Tissue Damage: No Dentition Unchanged: Yes Patient position: sniffing Mask difficulty assessment: 1 - vent by mask us Ranjeet Jacobs MD ANESTHESIA ORDERABLES Edited R esult - Final * POC , urine NO CHARGE screening manually resulted (08/14/2024 6:03 AM EDT) HCG, Ur POC Negative Negative POC hCG Int QC Pass? Yes Yes Urine Urine specimen obtained by clean catch procedure / Unknown 08/14/2024 6:03 AM EDT us Samina Witt MD POINT OF CARE TEST ENTE R/EDIT ORDERABLES Final Result * XR Chest 2 Views (08/06/2024 3:48 PM EDT) Anatomical Region Laterality Modality Body Radiographic Dionne ging 08/06/2024 4:28 PM EDT Impressions 08/06/2024 4:28 PM EDT FINDINGS/IMPRESSION: Normal heart size and pulmonary vascularity. ??Lungs are clear and costophrenic angles are sharp. ??No acute osseous abnormality. -------- FINAL REPORT -------- Dictated By: Silva Sow Dictated Date: 08/06/2024 16:28 ET Assigned Physician: Silva Sow Reviewed and Electronically Signed By: Silva Sow Signed Date: 08/06/2024 16:28 ET Workstation ID: [id number] Transcribed By: Self Edit Transcribed Date: 08/06/2024 16:28 ET Narrative 08/06/2024 4:28 PM EDT XR CHEST 2 VIEWS INDICATION: Preoperative Evaluation TECHNIQUE: XR CHEST 2 VIEWS COMPARISON: No priors available. Procedure Note Silva Sow MD - 08/06/2024 XR CHEST 2 VIEWS INDICATION: Preoperative Evaluation TECHNIQUE: XR CHEST 2 VIEWS COMPARISON: No priors available. IMPRESSION: FINDINGS/IMPRESSION: Normal heart size and pulmonary vascularity. Lungsare clear and costophrenic angles are sharp. No acute osseousabnormality. -------- FINAL REPORT -------- Dictated By: Silva Sow Dictated Date: 08/06/2024 16:28 ET Assigned Physician: Silva Sow Reviewed and Electronically Signed By: Silva Sow Signed Date: 08/06/2024 16:28 ET Workstation ID: [id number] Transcribed By: Self Edit Transcribed Date: 08/06/2024 16:28 ET us Samina Witt MD IMG XR PROCEDURES Final Result * Prothrombin time with INR (07/28/2024 12:50 PM EDT) Pathologist [facility] Protime 13.1 10.6 - 13.9 sec LAB COAGULATION METHOD 07/28/2024 2:[address] [facility] INR 1.0 LAB COAGULATION METHOD 07/28/2024 2:[address] [facility] Blood Venous blood specimen / Unknown Venipuncture / Unknown 07/28/2024 12:50 PM EDT 07/28/2024 1:50 PM EDT us Samina Witt MD LAB BLOOD ORDERABLES Fi nal Result Performing Organization Address [facility]/ZIP Co de Phone Number [facility] [address] [place] [address], [place] [phone] * Type and screen (07/28/2024 12:50 PM EDT) [facility] O 07/28/2024 2:[address] [facility] Rh Type Positive 07/28/2024 2:[address] [facility] Antibody Screen Negative 07/28/2024 2:[address] [facility] Blood Venous blood specimen / Unknown Venipuncture / Unknown 07/28/2024 12:50 PM EDT 07/28/2024 1:49 PM EDT us Samina Witt MD LAB BLOOD BANK TEST ORD ERABLES Final Result [facility] [address] [place] [address], [place] [phone] * Lipid panel with reflex to direct LDL (05/12/2024 7:50 AM EST) [facility] Cholesterol 141 0 - 200 mg/dL LAB CHEMISTRY METHOD 05/12/2024 10:[address] [facility] Triglycerides 70 0 - 150 mg/dL LAB CHEMISTRY METHOD 05/12/2024 10:34 AM [facility] HDL 42 >=40 mg/dL LAB CHEMISTRY METHOD 05/12/2024 10:34 AM [facility] LDL Calculated 85 0 - 100 mg/dL LAB CHEMISTRY METHOD 05/12/2024 10:34 AM [facility] VLDL Cholesterol Laz 14 mg/dL LAB CHEMISTRY METHOD 05/12/2024 10:34 AM [facility] Non HDL Chol. (LDL+VLDL) 99 <145 mg/dL LAB CHEMISTRY METHOD 05/12/2024 10:34 AM [facility] Chol/HDL Ratio 3.4 0.0 - 4.4 LAB CHEMISTRY METHOD 05/12/2024 10:34 AM [facility] Blood Venous blood specimen / Unknown Venipuncture / Unknown 05/12/2024 7:50 AM EST 05/12/2024 7:50 AM EST Samina Witt MD LAB BLOOD ORDERABLES Fi nal Result [facility] [address] [place] [address], from Last 3 Months or Most Recently Relevant to Health Maintenance Insurance MEDICAID - [place] Advance Directives * Full Code - Default (Latest Code Status on File) Date Activated Date Inactivated Comments 08/31/2024 11:08 PM 09/01/2024 5:53 PM This is order is used when code status has not been discussed with the patient, or code status is otherwise unknown/unconfirmed To update the patient's code status, place a code status order. Do not modify or discontinue any currently active code status orders. * Full Code - Default Date Activated Date Inactivated Comments 08/14/2024 6:03 AM 08/15/2024 11:02 PM This is ord er is used when code status has not been discussed with the patient, or code status is otherwise unknown/unconfirmed To update the patient's code status, place a code status order. Do not modify or discontinue any currently active code status orders. Care Teams Oil Lease Buyer Relationship Specialty Start Date End Date Gabrielle Shea NP [address] [place] [phone] PCP - General 12/28/22
--- OUTSIDE RECORDS SUMMARY | 2024-09-12 09:15 | XMS_ITS | Encounter Summary ---
Author Organization [employer] Address [address] [place] [address] Care Team Providers Care Customer Account Technician Name Role Phone Gabrielle Shea Primary Care Provider [phone] Reason for Visit * Reason Comments Med Refill Encounter Details Date Type Department Care Team ([facility] st Contact Info) Description 10/25/2023 Refill [facility] [address] [place], [place] [phone] Gabrielle Shea ANP [address] [place] [address] Migraine without aura and without status migrainosus, not intractable Social History Tobacco Use Types Packs/Day Years [...] Description 11/21/2024 9:00 AM EDT Office Visit [facility] [address] [place] [phone] Gabrielle Shea ANP [address] [place] [address] documented as of this encounter Visit Diagnoses Diagnosis Migraine without aura and without status migrainosus, not intractable documented in this encounter Additional Health Concerns Assessment Noted Time PHQ-9 Depression Total Score: 18 024 3:16 PM EST documented as of this encounter Care Teams Customer Account Technician Relationship Specialty Start Date End Date Gabrielle Shea ANP [address] [place] [phone] PCP - General Family Medicine 12/20/20 documented as of this encounter
--- OUTSIDE RECORDS SUMMARY | 2024-09-12 09:15 | XMS_ITS | Encounter Summary ---
Author Organization [employer] Address [address] [place] [address] [address] [place] [address] Care Team Providers Care Billiard Player Name Role Phone Gabrielle Shea CHRISTOPHER Primary Care Provider [phone] Reason for Visit * Reason Onset Date Comments Med Refill 07/31/2023 Encounter Details Date Type Department Care Team (Late st Contact Info) Description 07/31/2023 Refill [facility] [address] [place], [place] [phone] Sheryl Diana MD [address] [place] [address] Migraine without aura and without status migrainosus, [...] AM EDT Office Visit [facility] [address] [place] [phone] Gabrielle Shea ANP [address] [place] [address] documented as of this encounter Visit Diagnoses Diagnosis Migraine without aura and without status migrainosus, not intractable documented in this encounter Additional Health Concerns Assessment Noted Time PHQ-9 Depression Total Score: 18 024 3:16 PM EST documented as of this encounter Care Teams Billiard Player Relationship Specialty Start Date End Date Gabrielle Shea ANP [address] [place] [phone] PCP - General Family Medicine 12/20/20 documented as of this encounter
--- OUTSIDE RECORDS SUMMARY | 2024-09-12 09:15 | XMS_ITS | Encounter Summary ---
Author Organization [employer] Address [address] [place] [address] [address] [place] [address] Care Team Providers Care Associate Attorney Name Role Phone Gabrielle Shea Primary Care Provider [phone] Encounter Details Date Type Department Care Team (Late st Contact Info) Description 06/27/2022 Orders Only [facility] [address] [place] [address] Gabrielle Shea ANP [address] [place] [phone] Urinary frequency (Primary Dx) Social History Tobacco Use Types Packs/Day Years Used Date Smoking Tobacco: Never Smokeless Tobacco: Never Comments Unknown Sex and Gender Information Value Date Recorded Sex Assigned at Female 02/27/2022 10:16 AM EDT Legal Sex Female 10:16 AM EDT Gender Identity Female 02/27/2022 10:16 AM EDT Sexual Orientation Straight 02/27/2022 10 :16 AM EDT COVID-19 Exposure Response Date Recorded In the last 10 days, have yo u been in contact with someone who was confirmed or suspected to have Coronavirus/COVID-19? No / Unsure 06/27/2022 12:31 PM EST documented as of this encounter Plan of Treatment Upcoming Encounters Date Type Department Care Team (Late st Contact Info) Description 11/21/2024 9:00 AM EDT Office Visit [facility] [address] [place] [phone] Gabrielle Shea ANP [address] [place] [phone] documented as of this encounter Visit Diagnoses Diagnosis Urinary frequency- Primary documented in this encounter Care Teams Associate Attorney Relationship Specialty Start Date End Date Gabrielle Shea ANP [address] [place] [address] PCP - General Family Medicine 12/20/20 documented as of this encounter
--- OUTSIDE RECORDS SUMMARY | 2024-09-12 09:15 | XMS_ITS | Encounter Summary ---
Author Organization [employer] Address [address] [place] [address] Care Team Providers Care Plumber Name Role Phone Gabrielle Shea Primary Care Provider [phone] Reason for Visit * Reason Comments Med Refill Encounter Details Date Type Department Care Team ([facility] st Contact Info) Description 01/23/2024 Refill [facility] [address] [place], [place] [phone] Gabrielle Shea ANP [address] [place] [address] Migraine without aura and without status migrainosus, [...] Description 11/21/2024 9:00 AM EDT Office Visit [facility] [address] [place] [phone] Gabrielle Shea ANP [address] [place] [address] documented as of this encounter Visit Diagnoses Diagnosis Migraine without aura and without status migrainosus, not intractable documented in this encounter Additional Health Concerns Assessment Noted Time PHQ-9 Depression Total Score: 18 024 3:16 PM EST documented as of this encounter Care Teams Plumber Relationship Specialty Start Date End Date Gabrielle Shea ANP [address] [place] [phone] PCP - General Family Medicine 12/20/20 documented as of this encounter
--- OUTSIDE RECORDS SUMMARY | 2024-09-12 09:15 | XMS_ITS | Encounter Summary ---
Author Organization [employer] Address [address] [place] [address] [address] [place] [address] Care Team Providers Care Tetryl Boiling Tub Operator Name Role Phone Gabrielle Shea Primary Care Provider [phone] Reason for Visit * Reason Comments Med Refill Encounter Details Date Type Department Care Team (Late st Contact Info) Description 11/28/2022 Refill [facility] [address] [place], [place] [phone] Gabrielle Shea ANP [address] [place] [address] Chronic bilateral low back pain, unspecified whether [...] Description 11/21/2024 9:00 AM EDT Office Visit [facility] [address] [place] [address] Gabrielle Shea ANP [address] [place], [place] [phone] documented as of this encounter Visit Diagnoses Diagnosis Chronic bilateral low back pain, unspecified whether sciatica present documented in this encounter Care Teams Tetryl Boiling Tub Operator Relationship Specialty Start Date End Date Gabrielle Shea ANP [address] [place] [address] PCP - General Family Medicine 12/20/20 documented as of this encounter
[2024-09-12 12:37] LABS: HBS Num1 > 1000.00 mIU/mL (0-7.99); HBc Num1 0.22 S/CO (0.00-0.79); HBsAGNum1 0.32 S/CO (0.00-0.99); Hepatitis B Core Antibody Nonreactive (Nonreactive); Hepatitis B Surface Antigen Negative (Negative); ~Hepatitis B Surface Antibody REACTIVE (Nonreactive)
[2024-09-13 06:33] LABS: Varicella IgG Antibody 5.62 S/CO
== END 2024-09-12 09:03 | disposition home or self-care (01) ==
LOC: HO.HHCL 09:02
PROVIDERS: Visit Provider Nurse Practitioner Primary Care
DX: Z01.84 Encounter for antibody response examination (principal)
CPT/HCPCS: 36415; 86704; 86706; 86735; 86762; 86765; 86787; 87340

== ENCOUNTER 2024-11-13 07:28 | Outpatient (REF) | payer MEDICAID, SELFPAY ==
--- OUTSIDE RECORDS SUMMARY | 2024-11-13 07:30 | XMS_ITS | Clinical Summary ---
Author Organization [facility] Address [address] [place] [address] Phone Care Team Providers Care Placing Judge Name Role Phone Gabrielle Shea NP Primary Care Provider [phone] Allergies Active Allergy Reactions Criticality Noted Date Comments Hydroxyzine Hives 05/08/2023 Nitrofurantoin Dizziness 08/06/2024 Wheat Bran 05/08/2023 Medications albuterol HFA (Ventolin HFA) 90 mcg/actuation inhaler 1 puff. 3 Active SUMAtriptan (IMITREX) 100 mg tablet Take 1 tablet (100 mg total) by mouth 1 (one) time if needed for migraine. FOR UP TO 9 DOSES. 3 Active ferrous sulfate 325 mg (65 mg [...] mouth every 8 (eight) hours. 180 tablet 5 Active simethicone (MYLICON) 80 mg chewable tablet Chew 1 tablet (80 mg total) every 6 (six) hours if needed for flatulence. 30 tablet 5 Active wheat dextrin 3 gram/3.5 gram powder in packet Take 1 packet by mouth 1 (one) time each day. 30 packet 5 Active cyclobenzaprin e (FLEXERIL) 10 mg tablet Take 1 tablet (10 mg total) by mouth 3 (three) times a day for 14 days. 42 each 5 Active pantoprazole (PROTONIX) 40 mg EC tablet TAKE 1 TABLET BY MOUTH EVERY DAY BEFORE BREAKFAST. DO NOT BREAK, CRUSH, DISSOLVE OR CHEW. 30 tablet 2 5 Active ergocalciferol (VITAMIN D-2) 1,250 mcg (50,000 unit) capsule Take 1 capsule (50,000 Units total) by mouth 1 (one) time per week. 12 each 5 025 Discontinued pantoprazole (PROTONIX) 40 mg EC tablet Take 1 tablet (40 mg total) by mouth 1 (one) time each day before breakfast. Do not crush, chew, or split. 30 each 2 5 025 Discontinued oxyCODONE (ROXICODONE) 5 mg immediate release tablet Take 1 tablet (5 mg total) by mouth every 4 (four) hours if needed for severe pain. Max Daily Amount: 30 mg 12 tablet 5 025 Discontinued Active Problems Problem Noted Date Diagnosed Date Intestinal metaplasia of stomach without dysplas ia 08/29/2024 S/P gastric sleeve procedure 08/29/2024 Morbid obesity with BMI of 4 0.0-44.9, adult ([facility] V24, [facility] V28) 06/04/2024 Class 3 severe obesity with body mass index (BMI) of 40.0 to 44.9 in adult ([facility] V24, [facility] V28) 02/07/2024 Chronic back pain 05/30/2023 Anxiety 05/30/2023 Urticaria 05/30/2023 Angioedema 05/30/2023 Resolved Problems Problem Noted Date Diagnosed Date Resolved Date Abdominal pain 08/31/2024 09/01/2024 Encounters Date Type Department Care Team Description 10/20/2024 9:00 AM EDT Office Visit Bariatric Surgery - [place] [address] [phone] Samina Witt MD S/P gastric sleeve procedure (Primary Dx); Obesity (BMI 30-39.9); Gastroesophageal reflux disease, unspecified whether esophagitis present 09/04/2024 9:30 AM EDT Telemedicine Bariatric Surgery [address] [phone] Class 3 severe obesity with body mass index (BMI) of 40.0 to 44.9 in adult, unspecified obesity type, unspecified whether serious comorbidity present (CMS/HCC V24, CMS/HCC V28) (Primary Dx) 08/31/2024 8:19 PM EDT - 09/01/2024 3:48 PM EDT Hospital Encounter [facility] [address] [place] [phone] Tony Aquino MD Millay, Scot A, MD Ogrodnik, Aleksandra P, MD Generalized abdominal pain (Primary Dx); Nausea and vomiting, unspecified vomiting type Discharge Disposition: Home or Self Care 08/28/2024 9:00 AM EDT Office Visit Bariatric Surgery [address] [phone] Samina Witt MD S/P gastric sleeve procedure (Primary Dx); Obesity, Class III, BMI 40-49.9 (morbid obesity); Intestinal metaplasia of stomach without dysplasia 08/19/2024 Telephone Bariatric Surgery [address] [phone] Nani Carvajal RN 08/14/2024 7:30 AM EDT Anesthesia Event [facility] Main OR [address] [place] [phone] Ranjeet Jacobs MD Burton, Heather, CRNA 08/14/2024 7:30 AM EDT - 08/14/2024 10:00 AM EDT Surgery [facility] Main OR [address] [place] [phone] Samina Witt MD DAVINCI SLEEVE GASTRECTOMY [25507 (CPT )] 08/14/2024 5:35 AM EDT - 08/15/2024 9:02 PM EDT Hospital Encounter [facility] [address] [place] [phone] Samina Witt MD Morbid obesity with BMI of 40.0-44.9, adult ([facility] V24, [facility] V28) Discharge Disposition: Home or Self Care from Last 3 Months Surgical History Surgery [...] Record ed Within the last 3 months, ho w many times did you visit the emergency [...] for your loved ones. For example, child care centre manager or elderly care for an older adult? [...] Sign Reading Time Taken Comments Blood Pressure 128/84 10/20/2024 8:53 AM EDT Pulse 76 10/20/2024 8:53 AM EDT Temperature 36.4 C (97.6 F) 10/20/2024 8:53 AM EDT Respiratory Rate 18 09/01/2024 12:13 AM EDT Oxygen Saturation 100% 09/01/2024 12:13 AM EDT Inhaled Oxygen Concentration - - Weight 111 kg (245 lb) 10/20/2024 8:53 AM EDT Height 170.2 cm (5' 7 ) 10/20/2024 8:53 AM EDT Body Mass Index 38.37 10/20/2024 8:53 AM EDT Plan of Treatment Upcoming Encounters Date Type Department Care Team (Late st Contact Info) Description 01/19/2025 8:30 AM EDT Office Visit Bariatric Surgery - [address] [place] [phone] Samina Witt MD [address] [phone] Health Maintenance Due Date Last Done Comments Breast Cancer Screening 1982 Hepatitis B Vaccines (1 of 3 - 19+ 3-dose series) 2001 Pneumococcal Vaccine: Pediatrics (0 to 5 Years) and At-Risk Patients (6 to 49 Years) (1 of 2 - PCV) 2001 Cervical Cancer Screening: Pap Smear 08/22/2003 HIV Screening 05/25/2023 Hepatitis C Screening 05/25/2023 COVID-19 Vaccine ( season) 2023 04/24/2023, 04/21/2022, 03/11/2021, Additional history exists Influenza Vaccine (#1) 2024 , 01/18/2023, 01/12/2022, Additional history exists Depression Screening 05/21/2025 05/21/2024 [...] on patient's age to complete this topic HIB Vaccines Aged Out No longer eligi [...] with BMI of 40.0-44.9, adult (CMS/HCC V24, [facility] V28) TH AN ENDOTRACHEAL(NO CHARGE) Routine 08/14/2024 8:04 AM EDT MS LAP SURGICAL GASTRIC RESTRICTIVE PROCEDURE LONGITUDINAL GASTRECTOMY 08/14/2024 7:30 AM EDT Morbid obesity with BMI of 40.0-44.9, adult ([facility] V24, [facility] V28) POC PREGANCY, URINE SCREENING Routine 08/14/2024 6:03 AM EDT LIPID PANEL WITH REFLEX TO DIRECT LDL Routine 05/12/2024 7:50 AM EST Class 3 severe obesity with body mass index (BMI) of 45.0 to 49.9 in adult, unspecified obesity type, unspecified whether serious comorbidity present ([facility] V24, [facility] V28) from Last 3 Months or Most Recently Relevant to Health Maintenance Results * (ABNORMAL) CBC auto differential (09/01/2024 5:43 AM EDT) Only the most recent of3 resultswithin the time period is included. WBC 6.6 4.8 - 10.8 K/mcL LAB HEMETOLOGY METHOD 09/01/2024 6:53 AM [facility] RBC 3.50(L) 3.80 - 4.80 M/mcL LAB HEMETOLOGY METHOD 09/01/2024 6:53 AM [facility] Hemoglobin 9.5(L) 11.5 - 16.0 g/dL LAB HEMETOLOGY METHOD 09/01/2024 6:53 AM [facility] Hematocrit 30.2(L) 35.0 - 47.0 % LAB HEMETOLOGY METHOD 09/01/2024 6:53 AM [facility] MCV 86.3 79.0 - 98.0 FL LAB HEMETOLOGY METHOD 09/01/2024 6:53 AM [facility] MCH 27.1 27.0 - 32.0 pcg LAB HEMETOLOGY METHOD 09/01/2024 6:53 AM [facility] MCHC 31.5(L) 32.0 - 37.0 g/dL LAB HEMETOLOGY METHOD 09/01/2024 6:53 AM [facility] RDW 15.8(H) 11.0 - 15.0 % LAB HEMETOLOGY METHOD 09/01/2024 6:53 AM [facility] Platelets 339 130 - 400 K/mcL LAB HEMETOLOGY METHOD 09/01/2024 6:53 AM [facility] MPV 9.6 7.0 - 11.0 FL LAB HEMETOLOGY METHOD 09/01/2024 6:53 AM [facility] NRBC 0.0 <1.0 % LAB HEMETOLOGY METHOD 09/01/2024 6:53 AM [facility] NRBC Absolute 0.00 <0.10 K/mcL LAB HEMETOLOGY METHOD 09/01/2024 6:53 AM [facility] Neutrophils Relative 42.0 % LAB HEMETOLOGY METHOD 09/01/2024 6:53 AM [facility] Lymphocytes Relative 47.6 % LAB HEMETOLOGY METHOD 09/01/2024 6:53 AM [facility] Monocytes Relative 7.6 % LAB HEMETOLOGY METHOD 09/01/2024 6:53 AM [facility] Eosinophils Relative 2.1 % LAB HEMETOLOGY METHOD 09/01/2024 6:53 AM [facility] Basophils Relative 0.5 % LAB HEMETOLOGY METHOD 09/01/2024 6:53 AM [facility] Immature Granulocytes Relative 0.2 % LAB HEMETOLOGY METHOD 09/01/2024 6:53 AM [facility] Neutrophils Absolute 2.76 1.50 - 7.00 K/mcL LAB HEMETOLOGY METHOD 09/01/2024 6:53 AM EDT [facility] Lymphocytes Absolute 3.12 1.00 - 5.00 K/[facility] LAB HEMETOLOGY METHOD 09/01/2024 6:53 AM EDT [facility] Monocytes Absolute 0.50 0.20 - 1.00 K/[facility] LAB HEMETOLOGY METHOD 09/01/2024 6:53 AM EDT [facility] Eosinophils Absolute 0.14 0.00 - 0.50 K/[facility] LAB HEMETOLOGY METHOD 09/01/2024 6:53 AM EDT [facility] Basophils Absolute 0.03 0.00 - 0.20 K/[facility] LAB HEMETOLOGY METHOD 09/01/2024 6:53 AM EDT [facility] Immature Granulocytes Absolute 0.01 0.00 - 0.03 K/[facility] LAB HEMETOLOGY METHOD 09/01/2024 6:53 AM EDT [facility] Blood Venous blood specimen / Unknown Venipuncture / Unknown 09/01/2024 5:43 AM EDT 09/01/2024 6:17 AM EDT us Guzman JASSO LAB BLOOD ORDERABLES Final Re sult [facility] [address] [place] [address], * (ABNORMAL) Lipase (09/01/2024 5:43 AM EDT) Only the most recent of2 resultswithin the time period is included. Lipase 231(H) 13 - 75 unit/L LAB CHEMISTRY METHOD 09/01/2024 8:07 AM EDT [facility] Blood Venous blood specimen / Unknown Venipuncture / Unknown 09/01/2024 5:43 AM EDT 09/01/2024 6:17 AM EDT Trina JASSO LAB BLOOD ORDERABLES Final Re sult [facility] [address] [place] [address], * Comprehensive metabolic panel (09/01/2024 5:43 AM EDT) Only the most recent of2 resultswithin the time period is included. Sodium 140 133 - 145 mmol/L LAB CHEMISTRY METHOD 09/01/2024 6:53 AM [facility] Potassium 3.5 3.5 - 5.5 mmol/L LAB CHEMISTRY METHOD 09/01/2024 6:53 AM [facility] Chloride 107 96 - 110 mmol/L LAB CHEMISTRY METHOD 09/01/2024 6:53 AM [facility] CO2 26 21 - 32 mmol/L LAB CHEMISTRY METHOD 09/01/2024 6:53 AM [facility] Anion Gap 7 3 - 11 LAB CHEMISTRY METHOD 09/01/2024 6:53 AM [facility] Glucose 94 70 - 100 mg/dL LAB CHEMISTRY METHOD 09/01/2024 6:53 AM [facility] BUN 13 5 - 25 mg/dL LAB CHEMISTRY METHOD 09/01/2024 6:53 AM [facility] Creatinine 0.64 0.50 - 1.10 mg/dL LAB CHEMISTRY METHOD 09/01/2024 6:53 AM [facility] eGFR 113 >=60 mL/min/1. 73m2 LAB CHEMISTRY METHOD 09/01/2024 6:53 AM [facility] Comment:Calculation based on the Chronic Kidney Disease Epidemiology Collaboration (CKD-EPI) equation refit without adjustment for race. BUN/Creatinine Ratio 20.3 LAB CHEMISTRY METHOD 09/01/2024 6:53 AM [facility] Calcium 9.1 8.5 - 10.5 mg/dL LAB CHEMISTRY METHOD 09/01/2024 6:53 AM EDT [facility] AST (SGOT) 12 10 - 42 unit/L LAB CHEMISTRY METHOD 09/01/2024 6:53 AM EDT [facility] ALT (SGPT) 19 10 - 60 unit/L LAB CHEMISTRY METHOD 09/01/2024 6:53 AM EDT [facility] Alkaline Phosphatase 57 42 - 121 unit/L LAB CHEMISTRY METHOD 09/01/2024 6:53 AM T [facility] Total Protein 6.7 6.0 - 8.0 g/dL LAB CHEMISTRY METHOD 09/01/2024 6:53 AM [facility] Albumin 3.2 3.2 - 5.0 g/dL LAB CHEMISTRY METHOD 09/01/2024 6:53 AM [facility] Total Bilirubin 0.6 0.0 - 1.4 mg/dL LAB CHEMISTRY METHOD 09/01/2024 6:53 AM T [facility] Blood Venous blood specimen / Unknown Venipuncture / Unknown 09/01/2024 5:43 AM EDT 09/01/2024 6:17 AM EDT us Guzman JASSO LAB BLOOD ORDERABLES Final Re sult [facility] [address] [place] [address], * CT Abdomen Pelvis w Contrast (08/31/2024 [...] MD on 08/31/2024 23:40:15 Tony Aquino MD [facility] CT PROCEDURES Final R esult * POC , urine manually resulted (08/31/2024 6:42 PM EDT) HCG, Ur POC Negative Negative POC hCG Int QC Pass? Yes Yes Urine Urine specimen obtained by clean catch procedure / Unknown 08/31/2024 6:42 PM EDT Des Silva MD POINT OF CARE TEST ENTER/EDIT O RDERABLES Final Result * Magnesium (08/15/2024 6:10 AM EDT) Pathologist [facility] Magnesium 2.1 1.9 - 2.6 mg/dL LAB CHEMISTRY METHOD 08/15/2024 7:31 AM EDT [facility] Blood Venous blood specimen / Unknown Venipuncture / Unknown 08/15/2024 6:10 AM EDT 08/15/2024 6:44 AM EDT Trina JASSO LAB BLOOD ORDERABLES Final Re sult [facility] [address] [place] [address], * (ABNORMAL) Basic metabolic panel (08/15/2024 6:10 AM EDT) Pathologist [facility] Sodium 138 133 - 145 mmol/L LAB CHEMISTRY METHOD 08/15/2024 7:31 AM [facility] Potassium 3.9 3.5 - 5.5 mmol/L LAB CHEMISTRY METHOD 08/15/2024 7:31 AM [facility] Chloride 105 96 - 110 mmol/L LAB CHEMISTRY METHOD 08/15/2024 7:31 AM [facility] CO2 27 21 - 32 mmol/L LAB CHEMISTRY METHOD 08/15/2024 7:31 AM [facility] Anion Gap 6 3 - 11 LAB CHEMISTRY METHOD 08/15/2024 7:31 AM [facility] Glucose 102(H) 70 - 100 mg/dL LAB CHEMISTRY METHOD 08/15/2024 7:31 AM [facility] BUN 10 5 - 25 mg/dL LAB CHEMISTRY METHOD 08/15/2024 7:31 AM [facility] Creatinine 0.70 0.50 - 1.10 mg/dL LAB CHEMISTRY METHOD 08/15/2024 7:31 AM EDT [facility] eGFR 112 >=60 mL/min/1. 73m2 LAB CHEMISTRY METHOD 08/15/2024 7:31 AM EDT [facility] Comment:Calculation based on the Chronic Kidney Disease Epidemiology Collaboration (CKD-EPI) equation refit without adjustment for race. BUN/Creatinine Ratio 14.3 LAB CHEMISTRY METHOD 08/15/2024 7:31 AM EDT [facility] Calcium 8.8 8.5 - 10.5 mg/dL LAB CHEMISTRY METHOD 08/15/2024 7:31 AM EDT [facility] Blood Venous blood specimen / Unknown Venipuncture / Unknown 08/15/2024 6:10 AM EDT 08/15/2024 6:44 AM EDT Trina JASSO LAB BLOOD ORDERABLES Final Re sult [facility] [address] [place] [address], * Tissue exam (08/14/2024 9:06 AM EDT) [...] diagnosis. Control stains appropriately. 4:27 PM EDT [facility] Gross Description A. Stomach, : [...] consist of red, bilious and bloody material. Housing Case Manager sections are submitted in one cassette to include a perpendicular section of the margin and random stomach, three pieces. TS 5 4:27 PM EDT [facility] Disclaimer NOTE: The immunohistochemical tests and in situ hybridization tests were developed and their performance characteristics were determined by [facility]. They have not been cleared [...] fixed and paraffin embedded. 4:27 PM EDT [facility] Tissue Stomach structure / Unknown 08/14/2024 9:06 AM EDT 08/14/2024 11:32 AM EDT us Samina Witt MD LAB PATHOLOGY ORDERABLE S Final Result [facility] [address] [place] [address], * TH AN ENDOTRACHEAL(NO CHARGE) (08/14/2024 8:04 AM EDT) Narrative Jayne Malave CRNA - 08/14/2024 8:04 AM EDT Jayne Malave CRNA 08/14/2024 8:05 AM General Information and Staff Patient location during procedure: OR Resident/SCAFFOLD BUILDER: Jayne Malave CRNA Performed: resident/SCAFFOLD BUILDER/CAA Performed by: Jayne Malave CRNA Authorized by: Ranjeet Jacobs MD Intubation Additional Comments Mask ventilation by substation design draftsperson student Carisa Hernandez- Anabell/L by Carisa Hernandez- grade 1 view Airway [...] difficulty assessment: 1 - vent by mask Ranjeet Jacobs MD ANESTHESIA ORDERABLES Edited R esult - Final * POC , urine NO CHARGE screening manually resulted (08/14/2024 6:03 AM EDT) [facility] HCG, Ur POC Negative Negative POC hCG Int QC Pass? Yes Yes Urine Urine specimen obtained by clean catch procedure / Unknown 08/14/2024 6:03 AM EDT Samina Witt MD POINT OF CARE TEST ENTE R/EDIT ORDERABLES Final Result * Lipid panel with reflex to direct LDL (05/12/2024 7:50 AM EST) [facility] Cholesterol 141 0 - 200 mg/dL LAB CHEMISTRY METHOD 05/12/2024 10:34 AM [facility] Triglycerides 70 0 - 150 mg/dL LAB CHEMISTRY METHOD 05/12/2024 10:34 AM [facility] HDL 42 >=40 mg/dL LAB CHEMISTRY METHOD 05/12/2024 10:34 AM [facility] LDL Calculated 85 0 - 100 mg/dL LAB CHEMISTRY METHOD 05/12/2024 10:34 AM [facility] VLDL Cholesterol Laz 14 mg/dL LAB CHEMISTRY METHOD 05/12/2024 10:34 AM EST [facility] Non HDL Chol. (LDL+VLDL) 99 <145 mg/dL LAB CHEMISTRY METHOD 05/12/2024 10:34 AM EST [facility] Chol/HDL Ratio 3.4 0.0 - 4.4 LAB CHEMISTRY METHOD 05/12/2024 10:34 AM EST [facility] Blood Venous blood specimen / Unknown Venipuncture / Unknown 05/12/2024 7:50 AM EST 05/12/2024 7:50 AM EST us Samina Witt MD LAB BLOOD ORDERABLES Fi nal Result [facility] [address] [place] [address], from Last 3 Months or Most Recently [...] currently active code status orders. Care Teams Placing Judge Relationship Specialty Start Date End Date Gabrielle Shea NP [address] [place] [phone] PCP - General 12/28/22
== END 2024-11-13 07:29 | disposition home or self-care (01) ==
LOC: HO.MAMMO 07:28
PROVIDERS: PCP Nurse Practitioner Primary Care; Visit Provider Nurse Practitioner Primary Care
DX: Z12.31 Encounter for screening mammogram for malignant neoplasm of breast (principal)
CPT/HCPCS: 77063; 77067

== ENCOUNTER → 2024-11-13 07:30 | Outpatient (BNV) | payer MEDICAID, SELFPAY | PROVIDERS: PCP Nurse Practitioner Primary Care; Visit Provider Radiology Body Imaging | DX: Z12.31 Encounter for screening mammogram for malignant neoplasm of breast (principal) | CPT/HCPCS: 77063; 77067 ==

== ENCOUNTER 2024-12-05 10:59 | Outpatient (AMB) | payer MEDICAID, SELFPAY ==
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
--- OUTSIDE RECORDS SUMMARY | 2024-12-05 11:02 | XMS_ITS | Clinical Summary ---
Author Organization [address] [facility] Address [address] [place] [address] Phone Care Team Providers Care Partner Integration Planner Name Role Phone Gabrielle Shea NP Primary Care Provider [phone] Allergies Active Allergy Reactions Criticality Noted Date Comments Hydroxyzine Hives 05/08/2023 Nitrofurantoin Dizziness 08/06/2024 Wheat Bran 05/08/2023 Medications albuterol HFA (Ventolin HFA) 90 mcg/actuation inhaler 1 puff. 04/25/2023 Active SUMAtriptan (IMITREX) 100 mg tablet Take 1 tablet (100 mg total) by mouth 1 (one) time if needed for migraine. FOR UP TO 9 DOSES. 04/16/2023 Active ferrous sulfate 325 mg (65 mg [...] mouth every 8 (eight) hours. 180 tablet 08/06/2024 Active simethicone (MYLICON) 80 mg chewable tablet Chew 1 tablet (80 mg total) every 6 (six) hours if needed for flatulence. 30 tablet 08/06/2024 Active wheat dextrin 3 gram/3.5 gram powder in packet Take 1 packet by mouth 1 (one) time each day. 30 packet 08/06/2024 Active cyclobenzaprine (FLEXERIL) 10 mg tablet Take 1 tablet (10 mg total) by mouth 3 (three) times a day for 14 days. 42 each 09/01/2024 Active pantoprazole (PROTONIX) 40 mg EC tablet TAKE 1 TABLET BY MOUTH EVERY DAY BEFORE BREAKFAST. DO NOT BREAK, CRUSH, DISSOLVE OR CHEW. 30 tablet 2 10/28/2024 Active Active Problems Problem Noted Date Diagnosed Date Intestinal metaplasia of stomach without dysplas ia 08/29/2024 S/P gastric sleeve procedure 08/29/2024 Morbid obesity with BMI of 4 0.0-44.9, adult ([facility] V24, [facility] V28) 06/04/2024 Class 3 severe obesity with body mass index (BMI) of 40.0 to 44.9 in adult ([facility] V24, [facility] V28) 02/07/2024 Chronic back pain 05/30/2023 Anxiety 05/30/2023 Urticaria 05/30/2023 Angioedema 05/30/2023 Resolved Problems Problem Noted Date Diagnosed Date Resolved Date Abdominal pain 08/31/2024 09/01/2024 Encounters Date Type Department Care Team Description 10/20/2024 9:00 AM EDT Office Visit Bariatric Surgery - [address] [address] Samina Witt MD S/P gastric sleeve procedure (Primary Dx); Obesity (BMI 30-39.9); Gastroesophageal reflux disease, unspecified whether esophagitis present 09/04/2024 9:30 AM EDT Telemedicine Bariatric Surgery [address] [address] Class 3 severe obesity with body mass index (BMI) of 40.0 to 44.9 in adult, unspecified obesity type, unspecified whether serious comorbidity present ([facility] V24, [facility] V28) (Primary Dx) from Last 3 Months [...] your loved ones. For example, child care associate or elderly care for an older adult? [...] AM EDT Office Visit Bariatric Surgery - [place] [address] [address] Samina Witt MD 175 [facility] [address] [place] [address] Arrived Health Maintenance Due Date Last Done Comments [...] 04/21/2022, 03/11/2021, Additional history exists Depression Screening 04/30/2024 Influenza Vaccine (#1) 2024 , 01/18/2023, 01/12/2022, Additional history exists Social Influencers of Health Screening 09/01/2025 09/01/2024 Hypertension/CHF/CAD Annual BMP Blood Test 11/25/2025 11/25/2024, 09/01/2024, 08/31/2024, Additional history exists Cholesterol Screening (Lipid Panel) 05/12/2029 05/12/2024, 02/06/2023 [...] Procedure Name Priority Date/Time Associated Diagnosis Comments CBC WITH AUTO DIFFERENTIAL Routine 11/25/2024 10:45 AM EDT S/P gastric sleeve procedure Anxiety Class 3 severe obesity with body mass index (BMI) of 40.0 to 44.9 in adult (CMS/HCC V24, CMS/HCC V28) Chronic back pain CBC AND DIFFERENTIAL Routine 11/25/2024 10:45 AM EDT S/P gastric sleeve procedure Anxiety Class 3 severe obesity with body mass index (BMI) of 40.0 to 44.9 in adult (CMS/HCC V24, CMS/HCC V28) Chronic back pain COMPREHENSIVE METABOLIC PANEL Routine 11/25/2024 10:45 AM EDT S/P gastric sleeve procedure Anxiety Class 3 severe obesity with body mass index (BMI) of 40.0 to 44.9 in adult (CMS/HCC V24, CMS/HCC V28) Chronic back pain IRON AND TIBC Routine 11/25/2024 10:45 AM EDT S/P gastric sleeve procedure Anxiety Class 3 severe obesity with body mass index (BMI) of 40.0 to 44.9 in adult (CMS/HCC V24, CMS/HCC V28) Chronic back pain SELENIUM SERUM Routine 11/25/2024 10:45 AM EDT S/P gastric sleeve procedure Anxiety Class 3 severe obesity with body mass index (BMI) of 40.0 to 44.9 in adult (CMS/HCC V24, CMS/HCC V28) Chronic back pain VITAMIN B1 Routine 11/25/2024 10:45 AM EDT S/P gastric sleeve procedure Anxiety Class 3 severe obesity with body mass index (BMI) of 40.0 to 44.9 in adult (CMS/HCC V24, CMS/HCC V28) Chronic back pain VITAMIN B12 Routine 11/25/2024 10:45 AM EDT S/P gastric sleeve procedure Anxiety Class 3 severe obesity with body mass index (BMI) of 40.0 to 44.9 in adult (CMS/HCC V24, CMS/HCC V28) Chronic back pain VITAMIN B6 Routine 11/25/2024 10:45 AM EDT S/P gastric sleeve procedure Anxiety Class 3 severe obesity with body mass index (BMI) of 40.0 to 44.9 in adult (CMS/HCC V24, CMS/HCC V28) Chronic back pain VITAMIN D 25 HYDROXY Routine 11/25/2024 10:45 AM EDT S/P gastric sleeve procedure Anxiety Class 3 severe obesity with body mass index (BMI) of 40.0 to 44.9 in adult (CMS/HCC V24, [facility] V28) Chronic back pain ZINC Routine 11/25/2024 10:45 AM EDT S/P gastric sleeve procedure Anxiety Class 3 severe obesity with body mass index (BMI) of 40.0 to 44.9 in adult (CMS/HCC V24, [facility] V28) Chronic back pain LIPID PANEL WITH REFLEX TO DIRECT LDL Routine 05/12/2024 7:50 AM EST Class 3 severe obesity with body mass index (BMI) of 45.0 to 49.9 in adult, unspecified obesity type, unspecified whether serious comorbidity present ([facility] V24, [facility] V28) from Last 3 Months or Most Recently Relevant to Health Maintenance Results * (ABNORMAL) CBC auto differential (11/25/2024 10:45 AM EDT) WBC 6.6 4.8 - 10.8 K/mcL LAB HEMETOLOGY METHOD 11/25/2024 2:17 PM [facility] RBC 4.20 3.80 - 4.80 M/mcL LAB HEMETOLOGY METHOD 11/25/2024 2:17 PM [facility] Hemoglobin 11.7 11.5 - 16.0 g/dL LAB HEMETOLOGY METHOD 11/25/2024 2:17 PM [facility] Hematocrit 37.1 35.0 - 47.0 % LAB HEMETOLOGY METHOD 11/25/2024 2:17 PM [facility] MCV 88.1 79.0 - 98.0 FL LAB HEMETOLOGY METHOD 11/25/2024 2:17 PM [facility] MCH 27.8 27.0 - 32.0 pcg LAB HEMETOLOGY METHOD 11/25/2024 2:17 PM [facility] MCHC 31.5(L) 32.0 - 37.0 g/dL LAB HEMETOLOGY METHOD 11/25/2024 2:17 PM [facility] RDW 16.6(H) 11.0 - 15.0 % LAB HEMETOLOGY METHOD 11/25/2024 2:17 PM [facility] Platelets 363 130 - 400 K/mcL LAB HEMETOLOGY METHOD 11/25/2024 2:17 PM [facility] MPV 8.9 7.0 - 11.0 FL LAB HEMETOLOGY METHOD 11/25/2024 2:17 PM [facility] NRBC 0.0 <1.0 % LAB HEMETOLOGY METHOD 11/25/2024 2:17 PM [facility] NRBC Absolute 0.00 <0.10 K/mcL LAB HEMETOLOGY METHOD 11/25/2024 2:17 PM [facility] Neutrophils Relative 52.9 % LAB HEMETOLOGY METHOD 11/25/2024 2:17 PM [facility] Lymphocytes Relative 38.7 % LAB HEMETOLOGY METHOD 11/25/2024 2:17 PM [facility] Monocytes Relative 6.2 % LAB HEMETOLOGY METHOD 11/25/2024 2:17 PM [facility] Eosinophils Relative 1.5 % LAB HEMETOLOGY METHOD 11/25/2024 2:17 PM [facility] Basophils Relative 0.5 % LAB HEMETOLOGY METHOD 11/25/2024 2:17 PM [facility] Immature Granulocytes Relative 0.2 % LAB HEMETOLOGY METHOD 11/25/2024 2:17 PM [facility] Neutrophils Absolute 3.50 1.50 - 7.00 K/mcL LAB HEMETOLOGY METHOD 11/25/2024 2:17 PM EDT [facility] Lymphocytes Absolute 2.56 1.00 - 5.00 K/mcL LAB HEMETOLOGY METHOD 11/25/2024 2:17 PM EDT [facility] Monocytes Absolute 0.41 0.20 - 1.00 K/[facility] LAB HEMETOLOGY METHOD 11/25/2024 2:17 PM EDT [facility] Eosinophils Absolute 0.10 0.00 - 0.50 K/[facility] LAB HEMETOLOGY METHOD 11/25/2024 2:17 PM EDT [facility] Basophils Absolute 0.03 0.00 - 0.20 K/[facility] LAB HEMETOLOGY METHOD 11/25/2024 2:17 PM EDT [facility] Immature Granulocytes Absolute 0.01 0.00 - 0.03 K/[facility] LAB HEMETOLOGY METHOD 11/25/2024 2:17 PM EDT [facility] Blood Venous blood specimen / Unknown Venipuncture / Unknown 11/25/2024 10:45 AM EDT 11/25/2024 10:45 AM EDT Samina Witt MD LAB BLOOD ORDERABLES Fi nal Result [facility] [address] [place] [address], * (ABNORMAL) Iron and TIBC (11/25/2024 10:45 AM EDT) Iron 45 40 - 150 mcg/dL LAB CHEMISTRY METHOD 11/25/2024 3:39 PM EDT [facility] TIBC 381 250 - 450 mcg/dL LAB CHEMISTRY METHOD 11/25/2024 3:39 PM EDT [facility] Iron Saturation 12(L) 15 - 50 % LAB CHEMISTRY METHOD 11/25/2024 3:39 PM EDT [facility] Blood Venous blood specimen / Unknown Venipuncture / Unknown 11/25/2024 10:45 AM EDT 11/25/2024 10:45 AM EDT us Samina Witt MD LAB BLOOD ORDERABLES Fi nal Result Performing Organization Address [facility]/ZIP Co de Phone Number [facility] [address] [place] [address], * Zinc (11/25/2024 10:45 AM EDT) Zinc 63 60 - 130 ug/dL 11/27/2024 11:22 AM EDT [facility] Comment: Elevated results may be due to sample collected in a non-certified trace element-free tube. This test was developed and the performance characteristics determined by [facility]. It has not been cleared or approved by the FDA. The laboratory is regulated under CLIA as qualified to perform high-complexity testing. This test is used for patient testing purposes. It should not be regarded as investigational or for research. Test performed at [facility], [address] , [place] [address] Dorothy Mac MD, PhD - [employer] Blood Venous blood specimen / Unknown Venipuncture / Unknown 11/25/2024 10:45 AM EDT 11/25/2024 10:45 AM EDT Samina Witt MD LAB BLOOD ORDERABLES Fi nal Result Performing Organization Address City/[facility]/ZIP Co de Phone Number [facility] [address] [place] [address] * Selenium serum (11/25/2024 10:45 AM EDT) Selenium 142 63 - 160 mcg/L 11/28/2024 9:10 PM EDT [facility] Comment: This test was developed and its analytical performance characteristics have been [facility] [place] [place] It has not been cleared or approved by the U.S. Food and Drug Administration. This assay has been validated pursuant to the CLIA regulations and is used for clinical purposes. Test Performed by [employer] [employer] [facility], [address] [place] [address] Travis Wayne M.D., Ph.D., Director of Laboratories , CLIA [id number] Blood Venous blood specimen / Unknown Venipuncture / Unknown 11/25/2024 10:45 AM EDT 11/25/2024 10:45 AM EDT us Samina Witt MD LAB BLOOD ORDERABLES Fi nal Result [facility] [address] [place] [address] * (ABNORMAL) Vitamin D 25 hydroxy (11/25/2024 10:45 AM EDT) [facility] Vit D, 25-Hydroxy 25.6(L) 30.0 - 80.0 ng/mL LAB CHEMISTRY METHOD 11/25/2024 4:27 PM EDT [facility] Blood Venous blood specimen / Unknown Venipuncture / Unknown 11/25/2024 10:45 AM EDT 11/25/2024 10:45 AM EDT us Samina Witt MD LAB BLOOD ORDERABLES Fi nal Result [facility] [address] [place] [address], [place] [phone] * Vitamin B1 (11/25/2024 10:45 AM EDT) [facility] Vitamin B1 Whole Blood 39 38 - 122 ug/L 11/28/2024 6:16 AM EDT [facility] Comment: This test was developed and the performance characteristics determined by [facility]. It has not been cleared or approved by the FDA. The laboratory is regulated under CLIA as qualified to perform high-complexity testing. This test is used for patient testing purposes. It should not be regarded as investigational or for research. Test performed at [facility], [address] [place] [address] Dorothy Mac MD, PhD - [employer] Blood Venous blood specimen / Unknown Venipuncture / Unknown 11/25/2024 10:45 AM EDT 11/25/2024 10:45 AM EDT Samina Witt MD LAB BLOOD ORDERABLES Fi nal Result Performing Organization Address City/[facility]/ZIP Co de Phone Number [facility] [address] [place] [address] * (ABNORMAL) Vitamin B6 (11/25/2024 10:45 AM EDT) Vitamin B6 (Pyridoxine) Level <2(L) 5 - 50 ug/L 12/01/2024 12:50 PM EDT [facility] Comment: This test was developed and the performance characteristics determined by [facility]. It has not been cleared or approved by the FDA. The laboratory is regulated under CLIA as qualified to perform high-complexity testing. This test is used for patient testing purposes. It should not be regarded as investigational or for research. Test performed at [facility], [address] [place] [address] Dorothy Mac MD, PhD - [employer] Blood Venous blood specimen / Unknown Venipuncture / Unknown 11/25/2024 10:45 AM EDT 11/25/2024 10:45 AM EDT us Samina Witt MD LAB BLOOD ORDERABLES Fi nal Result Performing Organization Address City/[facility]/ZIP Co de Phone Number [facility] [address] [place] [address] * Vitamin B12 (11/25/2024 10:45 AM EDT) Vitamin B-12 291 250 - 900 pcg/mL LAB CHEMISTRY METHOD 11/25/2024 3:39 PM [facility] Blood Venous blood specimen / Unknown Venipuncture / Unknown 11/25/2024 10:45 AM EDT 11/25/2024 10:45 AM EDT us Samina Witt MD LAB BLOOD ORDERABLES Fi nal Result [facility] [address] [place] [address], [place] [phone] * Comprehensive metabolic panel (11/25/2024 10:45 AM EDT) Sodium 140 133 - 145 mmol/L LAB CHEMISTRY METHOD 11/25/2024 3:39 PM [facility] Potassium 3.5 3.5 - 5.5 mmol/L LAB CHEMISTRY METHOD 11/25/2024 3:39 PM [facility] Chloride 106 96 - 110 mmol/L LAB CHEMISTRY METHOD 11/25/2024 3:39 PM [facility] CO2 28 21 - 32 mmol/L LAB CHEMISTRY METHOD 11/25/2024 3:39 PM [facility] Anion Gap 6 3 - 11 LAB CHEMISTRY METHOD 11/25/2024 3:39 PM [facility] Glucose 95 70 - 100 mg/dL LAB CHEMISTRY METHOD 11/25/2024 3:39 PM [facility] BUN 13 5 - 25 mg/dL LAB CHEMISTRY METHOD 11/25/2024 3:39 PM [facility] Creatinine 0.73 0.50 - 1.10 mg/dL LAB CHEMISTRY METHOD 11/25/2024 3:39 PM [facility] eGFR 105 >=60 mL/min/1. 73m2 LAB CHEMISTRY METHOD 11/25/2024 3:39 PM [facility] Comment:Calculation based on the Chronic Kidney Disease Epidemiology Collaboration (CKD-EPI) equation refit without adjustment for race. BUN/Creatinine Ratio 17.8 LAB CHEMISTRY METHOD 11/25/2024 3:39 PM [facility] Calcium 9.6 8.5 - 10.5 mg/dL LAB CHEMISTRY METHOD 11/25/2024 3:39 PM [facility] AST (SGOT) 11 10 - 42 unit/L LAB CHEMISTRY METHOD 11/25/2024 3:39 PM [facility] ALT (SGPT) 20 10 - 60 unit/L LAB CHEMISTRY METHOD 11/25/2024 3:39 PM [facility] Alkaline Phosphatase 70 42 - 121 unit/L LAB CHEMISTRY METHOD 11/25/2024 3:39 PM [facility] Total Protein 7.5 6.0 - 8.0 g/dL LAB CHEMISTRY METHOD 11/25/2024 3:39 PM [facility] Albumin 3.9 3.2 - 5.0 g/dL LAB CHEMISTRY METHOD 11/25/2024 3:39 PM [facility] Total Bilirubin 0.5 0.0 - 1.4 mg/dL LAB CHEMISTRY METHOD 11/25/2024 3:39 PM [facility] Blood Venous blood specimen / Unknown Venipuncture / Unknown 11/25/2024 10:45 AM EDT 11/25/2024 10:45 AM EDT us Samina Witt MD LAB BLOOD ORDERABLES Fi nal Result [facility] [address] [place] [address], * Lipid panel with reflex to direct LDL (05/12/2024 7:50 AM EST) Cholesterol 141 0 - 200 mg/dL LAB CHEMISTRY METHOD 05/12/2024 10:34 AM EST [facility] Triglycerides 70 0 - 150 mg/dL LAB CHEMISTRY METHOD 05/12/2024 10:34 AM [facility] HDL 42 >=40 mg/dL LAB CHEMISTRY METHOD 05/12/2024 10:34 AM [facility] LDL Calculated 85 0 - 100 mg/dL LAB CHEMISTRY METHOD 05/12/2024 10:34 AM [facility] VLDL Cholesterol Laz 14 mg/dL LAB CHEMISTRY METHOD 05/12/2024 10:34 AM [facility] Non HDL Chol. (LDL+VLDL) 99 <145 mg/dL LAB CHEMISTRY METHOD 05/12/2024 10:34 AM [facility] Chol/HDL Ratio 3.4 0.0 - 4.4 LAB CHEMISTRY METHOD 05/12/2024 10:34 AM [facility] Blood Venous blood specimen / Unknown Venipuncture / Unknown 05/12/2024 7:50 AM EST 05/12/2024 7:50 AM EST Samina Witt MD LAB BLOOD ORDERABLES Fi nal Result [facility] [address] [place] [address], from Last 3 Months or Most Recently [...] currently active code status orders. Care Teams Partner Integration Planner Relationship Specialty Start Date End Date Gabrielle Shea NP [address] [place] [phone] PCP - General 12/28/22
--- NOTE | 2024-12-05 11:16 | A.OFFVIS_ITS ---
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 Reports difficulty with bending over, heavy lifting, prolonged sitting, and prolonged walking. Expresses pain in right hip with ambulation. Increase in pain daily and decreases when she takes tramadol prescribed by her PCP. 02/06 on her worse day after house cleaning or yard cleaning where she I constantly moving, lifting and bending. She reports she has had incontinence accidents from her pain. PCP said this was caused by pinched nerve. She has seen Pain Management who told her it was SI joint, hx of nerve stimulator surgery implanted in her back. One was in July of 2020 & second was a revision and was done Jan 2024. She says she did not find Pain Management helpful. Has been treated for siatica for many years and treated for Degenerative disc disease. Allergies hydroxyzine (HYDROXYZINE) Allergy (Severe, Verified 12/05/24 11:29) ANAPHYLAXIS, rash nitrofurantoin Allergy (Severe, Verified 12/05/24 11:30) Hives wheat Allergy (Severe, Verified 12/05/24 11:29) ANAPHYLAXIS dust mites Allergy (Intermediate, Verified 12/05/24 11:29) hives Medication List - Last Reconciled 12/05/24 by Janette Fuentes MD albuterol sulfate 90 mcg/actuation (ProAir HFA) 2 puffs inhalation QID naproxen (Naprosyn) 500 mg PO BID sumatriptan succinate 100 mg PO DAILY PRN topiramate XR 50 mg PO DAILY tramadol 50 mg PO Q6H PRN 8 days zolpidem (Ambien) 10 mg PO BEDTIME HPI Comments Details: Pain since 16 years. Back then was just lower back, but mostly right sided/right leg. 7 pregnancies all in all. Follows with pain management, received right SI joint injection and PNS. No lumbar MRI on record, patient does not think she's had one. No lumbar epidural injection. Xray mild narrowing L4-5 and L5-S1. Been needing tramadol for pain. PNS does not seem to help. She actually points to right upper back, radiates down, then go to the lateral hip and posterior thigh. Stops at the knee. She also has upper trapezius. No numbness unless with severe pain, only right side. There is some bladder incontinence in relation to the pain. No bowel incontinence. No weakness. Increased pain with walking. Last PT few years ago. Walk for exericse daily. [facility] Medical History Palpitations Sacroiliac joint pain Anemia Surgical History S/P placement of nerve stimulator History of cholecystectomy H/O tubal ligation Family History Mother Thyroid disease HTN (hypertension) Diabetes Depression Lupus Osteoarthritis Father HTN (hypertension) Pancreatic cancer Diabetes Stroke Social History Household Members Other:: mother in law Are you a primary patient care specialist to a significant other at home: No Do you presently have visiting nurse or other home services: No Alcohol intake: never Comment: pt states her baseline is a 9 consistently Patient Tobacco Use Status: Never used Tobacco 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 Patient was appropriately conversant and oriented. Good historian. MSK: No specific abnormalities found on inspection of the spine and all extremities. No pain with palpation over the lumbar area. Her pain was focal on bilateral SI joints, right worse than left. There was no allodynia or hypersensitivity on previous surgical scar or where her PNS are but indicated tenderness on the muscles nearby. Lumbar ROM was full. Bilateral hip, knee and ankle ROM WNL. No ligamentous laxity or crepitance. No increased effusion. Straight-leg raising test negative. FABERE test positive back pain. Strength is 5/5 in all muscle groups tested. No increased tone noted. Neurological: Neurologic examination of the upper and lower extremities was nonfocal with intact sensation, muscle stretch reflexes and without focal motor deficits . Rosado?s negative bilaterally. Babinski was down going bilaterally. Clonus was negative. Gait is non-antalgic without loss of balance. Vital Signs: BMI result Body Mass Index 36.9 Results Reviewed Results Reviewed: Ordering Physician: Earl Byrne MD Date of Service: 01/01/24 Procedure(s): XR lumbar spine 2-3V Accession Number(s): [id number] cc: SUSAN NANCE NP; Earl Byrne MD~ EXAMINATION: XR LUMBOSACRAL SPINE CLINICAL INFORMATION: Back pain COMPARISON: 03/01/2023 TECHNIQUE: Three views of the lumbosacral spine. FINDINGS: There is anatomic alignment of the lumbar vertebral bodies and posterior elements. Vertebral body heights are maintained. There is disc space narrowing of the lower lumbar spine. Endplate osteophytes are noted at L5-S1. Sacroiliac joints appear intact. There is questionable discontinuity of upper sacral arcuate lines bilaterally, which may be artifactual. There is an approximately 5 mm calcification lateral to the right L1 transverse process, for which a renal calculus cannot be excluded. XR/XR lumbar spine 2-3V IMPRESSION: 1. Apparent discontinuity of the upper sacral arcuate lines bilaterally, which could be artifactual versus secondary to sacral fracture if there has been trauma. If clinically warranted, this could be further assessed with pelvic CT. 2. Approximately 5 mm calcification lateral to the right L1 transverse process, for which a renal calculus cannot be excluded. 3. Lower lumbar degenerative changes. Electronically signed by: Jimmy Gaytan MD 01/01/2024 11:12 PM EDT I reviewed records from the following: Pain management Assessment & Plan Assessment & Plan (1) Sacroiliac joint dysfunction of right side: Code(s): M53.3 - Sacrococcygeal disorders, not elsewhere classified Category: Medical (2) Lumbar radiculitis: Code(s): M54.16 - Radiculopathy, lumbar region Category: Medical Plan I agree that she is presenting with symptoms related to SI joint dysfunction. We discussed how SI joint dysfunction can start during pregnancies. We looked at a spinal model to visualize SI joints. However she does have symptoms suggestive of possible radiculitis. It may be reasonable to get a lumbar MRI. She will find out if safe to do MRI with her PNS. If PNS not helping with the pain, she may discuss with pain management about removal. Assessment and plan discussed with patient, and patient was agreeable. All questions were answered thoroughly. Janette Fuentes MD, NURYS Board Certified, [place] Board [employer] Physical Medicine and Rehabilitation (ABPMR) Board Certified, [place] Board of Electrodiagnostic Medicine (ABEM) Coding Level of Care Code New Pt Level 4 (99058) Diagnoses Sacroiliac joint dysfunction of right side M53.3 Lumbar radiculitis M54.16
[2024-12-05 11:31] VITALS: BMI 36.9
== END 2024-12-05 12:42 | disposition home or self-care (01) ==
LOC: HO.HOS 11:00
PROVIDERS: PCP Nurse Practitioner Primary Care; Visit Provider Physical Medicine & Rehabilitation
DX: M53.3 Sacrococcygeal disorders, not elsewhere classified (principal); M54.16 Radiculopathy, lumbar region
CPT/HCPCS: 99204

== ENCOUNTER → 2024-12-05 10:59 | Outpatient (BNVA) | payer MEDICAID, SELFPAY | PROVIDERS: PCP Nurse Practitioner Primary Care; Visit Provider Physical Medicine & Rehabilitation | DX: M53.3 Sacrococcygeal disorders, not elsewhere classified (principal); M54.16 Radiculopathy, lumbar region | CPT/HCPCS: 99202 ==

== ENCOUNTER → 2025-01-03 15:00 | Outpatient (BNV) | payer MEDICAID, SELFPAY | PROVIDERS: PCP Nurse Practitioner Primary Care; Visit Provider Radiology Diagnostic Radiology | DX: M54.16 Radiculopathy, lumbar region (principal) | CPT/HCPCS: 72148 ==

== ENCOUNTER 2025-01-03 15:02 | Outpatient (REF) | payer MEDICAID, SELFPAY ==
--- NOTE | ~2025-01-03 | MR_ITS ---
EXAMINATION: MR LUMBAR SPINE WITHOUT CONTRAST CLINICAL INFORMATION: Low back pain with radiculopathy. Right arm and toe weakness and numbness . COMPARISON: MRI lumbar spine 12/21/2016 TECHNIQUE: MRI of the lumbar spine was obtained using routine sequences without contrast. FINDINGS: There is normal lumbar lordosis. The vertebral heights and alignment is normal. There is mild loss of L5-S1, L4-5 disc heights with mild disc desiccation change. Rest of the disc heights are normal height and signal. The T12-L1 through L2-3 disc level appears unremarkable. At L3-4 disc level there is mild disc desiccation change without disc herniation or spinal canal stenosis. The neural foramina are patent bilaterally. L4-5 disc level there is mild diffuse bulge indenting the ventral thecal sac but without spinal canal stenosis. The neural foramina are mildly narrowed bilaterally. Similar findings were seen on the previous exam 2017 At L5-S1 disc level there is no signal disc bulge, herniation or spinal canal stenosis. The neural foramina are patent bilaterally. Mild endplate changes seen at L5-S1 disc level. Rest the bone marrow signal is normal. Conus medullaris terminates at 2 and appears normal in morphology. The paravertebral soft tissues are normal. MR/MR lumbar spine wo con IMPRESSION: Mild disc desiccation and degenerative disc bulge L4-5 disc level indenting the ventral thecal sac disc but without spinal canal stenosis. The neural foramina are mildly narrowed bilaterally. Minimal disc desiccation changes L3-4 and L5-S1 disc levels. No major change compared to previous study 12/21/2016. Electronically signed by: Cornel Mann MD 01/05/2025 07:13 AM EDT
--- OUTSIDE RECORDS SUMMARY | 2025-01-03 15:05 | XMS_ITS | Encounter Summary ---
Author Organization [employer] Address [address] [place] [address] [address] [place] [address] Care Team Providers Care Fibreglass Gun Hand Name Role Phone Monse Gabrielle WHITE Primary Care Provider [phone] Reason for Visit * Reason Onset Date Comments Med Refill 07/31/2023 Encounter Details Date Type Department Care Team (Late st Contact Info) Description 07/31/2023 Refill [facility] [address] [place], [place] [phone] Jessie Guzmán MD [address] [place] [address] Social History Tobacco Use Types Packs/Day Years [...] as of this encounter Plan of Treatment Not on file documented as of this encounter Visit Diagnoses Not on filedocumented in this encounter Additional Health Concerns Assessment Noted Time PHQ-9 Depression Total Score: 18 024 3:16 PM EST documented as of this encounter Care Teams Fibreglass Gun Hand Relationship Specialty Start Date End Date Gabrielle Shea ANP [address] [place] [address] PCP - General Family Medicine 12/20/20 documented as of this encounter
--- OUTSIDE RECORDS SUMMARY | 2025-01-03 15:05 | XMS_ITS | Clinical Summary ---
Author Organization [address] [facility] Address [address] [place] [address] Phone Care Team Providers Care Racker Octave Board Name Role Phone Gabrielle Shea NP Primary Care Provider [phone] Allergies Active Allergy Reactions Criticality Noted Date [...] OR CHEW. 30 tablet 2 10/28/2024 Active ergocalciferol (VITAMIN D-2) 1,250 mcg (50,000 unit) capsule Take 1 capsule (50,000 Units total) by mouth 1 (one) time per week. 12 each 12/18/2024 12/19/19 26 Active pyridoxine (B-6) 250 mg tablet Take 1 tablet (250 mg total) by mouth 1 (one) time each day. 30 tablet 2 12/18/2024 03/18/20 25 Active Active Problems Problem Noted Date Diagnosed Date Intestinal metaplasia of stomach without dysplas ia 08/29/2024 S/P gastric sleeve procedure 08/29/2024 Morbid obesity with BMI of 4 0.0-44.9, adult ([facility] V24, [facility] V28) 06/04/2024 Class 3 severe obesity with body mass index (BMI) of 40.0 to 44.9 in adult ([facility] V24, [facility] V28) 02/07/2024 Chronic back pain 05/30/2023 Anxiety 05/30/2023 Urticaria 05/30/2023 Angioedema 05/30/2023 Resolved Problems Problem Noted Date Diagnosed Date Resolved Date Abdominal pain 08/31/2024 09/01/2024 Encounters Date Type Department Care Team Description 10/20/2024 9:00 AM EDT Office Visit Bariatric Surgery - [address] [address] Samina Witt MD S/P gastric sleeve procedure (Primary Dx); Obesity (BMI 30-39.9); Gastroesophageal reflux disease, unspecified whether esophagitis present from Last 3 Months Surgical History Surgery [...] care for your loved ones. For example, childcare attendant or elderly care for an older adult? [...] AM EDT Office Visit Bariatric Surgery - [address] [place] [address] Samina Witt MD [address] [place] [phone] Arrived Health Maintenance Due Date Last Done Comments Breast Cancer Screening 1982 Hepatitis B Vaccines (1 of 3 - 19+ 3-dose series) 2001 Pneumococcal Vaccine: Pediatrics (0 to 5 Years) and At-Risk Patients (6 to 49 Years) (1 of 2 - PCV) 2001 Cervical Cancer Screening: Pap Smear 08/22/2003 HIV Screening 05/25/2023 Hepatitis C Screening 05/25/2023 Depression Screening 04/30/2024 COVID-19 Vaccine ( season) 2024 04/24/2023, 04/21/2022, 03/11/2021, Additional history exists Influenza [...] (BMI) of 40.0 to 44.9 in adult ([facility] V24, [facility] V28) Chronic back pain ZINC Routine 11/25/2024 10:45 AM EDT S/P gastric sleeve procedure Anxiety Class 3 severe obesity with body mass index (BMI) of 40.0 to 44.9 in adult ([facility] V24, [facility] V28) Chronic back pain LIPID PANEL WITH REFLEX TO DIRECT LDL Routine 05/12/2024 7:50 AM EST Class 3 severe obesity with body mass index (BMI) of 45.0 to 49.9 in adult, unspecified obesity type, unspecified whether serious comorbidity present ([facility] V24, [facility] V28) from Last 3 Months or Most Recently Relevant to Health Maintenance Results * (ABNORMAL) CBC auto differential (11/25/2024 10:45 AM EDT) WBC 6.6 4.8 - 10.8 K/mcL LAB HEMETOLOGY METHOD 11/25/2024 2:17 PM [facility] RBC 4.20 3.80 - 4.80 M/mcL LAB HEMETOLOGY METHOD 11/25/2024 2:17 PM [facility] Hemoglobin 11.7 11.5 - 16.0 g/dL LAB HEMETOLOGY METHOD 11/25/2024 2:17 PM [facility] Hematocrit 37.1 35.0 - 47.0 % LAB HEMETOLOGY METHOD 11/25/2024 2:17 PM [facility] MCV 88.1 79.0 - 98.0 FL LAB HEMETOLOGY METHOD 11/25/2024 2:17 PM [facility] MCH 27.8 27.0 - 32.0 pcg LAB HEMETOLOGY METHOD 11/25/2024 2:17 PM T [facility] MCHC 31.5(L) 32.0 - 37.0 g/dL LAB HEMETOLOGY METHOD 11/25/2024 2:17 PM [facility] RDW 16.6(H) 11.0 - 15.0 % LAB HEMETOLOGY METHOD 11/25/2024 2:17 PM [facility] Platelets 363 130 - 400 K/mcL LAB HEMETOLOGY METHOD 11/25/2024 2:17 PM [facility] MPV 8.9 7.0 - 11.0 FL LAB HEMETOLOGY METHOD 11/25/2024 2:17 PM [facility] NRBC 0.0 <1.0 % LAB HEMETOLOGY METHOD 11/25/2024 2:17 PM [facility] NRBC Absolute 0.00 <0.10 K/mcL LAB HEMETOLOGY METHOD 11/25/2024 2:17 PM [facility] Neutrophils Relative 52.9 % LAB HEMETOLOGY METHOD 11/25/2024 2:17 PM [facility] Lymphocytes Relative 38.7 % LAB HEMETOLOGY METHOD 11/25/2024 2:17 PM [facility] Monocytes Relative 6.2 % LAB HEMETOLOGY METHOD 11/25/2024 2:17 PM [facility] Eosinophils Relative 1.5 % LAB HEMETOLOGY METHOD 11/25/2024 2:17 PM [facility] Basophils Relative 0.5 % LAB HEMETOLOGY METHOD 11/25/2024 2:17 PM [facility] Immature Granulocytes Relative 0.2 % LAB HEMETOLOGY METHOD 11/25/2024 2:17 PM [facility] Neutrophils Absolute 3.50 1.50 - 7.00 K/mcL LAB HEMETOLOGY METHOD 11/25/2024 2:17 PM EDT [facility] Lymphocytes Absolute 2.56 1.00 - 5.00 K/mcL LAB HEMETOLOGY METHOD 11/25/2024 2:17 PM EDT [facility] Monocytes Absolute 0.41 0.20 - 1.00 K/mcL LAB HEMETOLOGY METHOD 11/25/2024 2:17 PM EDT [facility] Eosinophils Absolute 0.10 0.00 - 0.50 K/[facility] LAB HEMETOLOGY METHOD 11/25/2024 2:17 PM EDT [facility] Basophils Absolute 0.03 0.00 - 0.20 K/[facility] LAB HEMETOLOGY METHOD 11/25/2024 2:17 PM EDT [facility] Immature Granulocytes Absolute 0.01 0.00 - 0.03 K/[facility] LAB HEMETOLOGY METHOD 11/25/2024 2:17 PM EDT [facility] Blood Venous blood specimen / Unknown Venipuncture / Unknown 11/25/2024 10:45 AM EDT 11/25/2024 10:45 AM EDT us Samina Witt MD LAB BLOOD ORDERABLES Fi nal Result [facility] [address] [place] [address], * (ABNORMAL) Iron and TIBC (11/25/2024 10:45 AM EDT) Iron 45 40 - 150 mcg/dL LAB CHEMISTRY METHOD 11/25/2024 3:39 PM EDT [facility] TIBC 381 250 - 450 mcg/dL LAB CHEMISTRY METHOD 11/25/2024 3:39 PM EDT [facility] Iron Saturation 12(L) 15 - 50 % LAB CHEMISTRY METHOD 11/25/2024 3:39 PM EDT [facility] Blood Venous blood specimen / Unknown Venipuncture / Unknown 11/25/2024 10:45 AM EDT 11/25/2024 10:45 AM EDT us Samina Witt MD LAB BLOOD ORDERABLES Fi nal Result Performing Organization Address [facility]/ZIP Co de Phone Number [facility] [address] [place] [address], * Zinc (11/25/2024 10:45 AM EDT) Zinc 63 60 - 130 ug/dL 11/27/2024 11:22 AM EDT [facility] Comment: Elevated results may be due to sample collected in a non-certified trace element-free tube. This test was developed and the performance characteristics determined by [facility]. It has not been cleared or approved by the FDA. The laboratory is regulated under CLIA as qualified to perform high-complexity testing. This test is used for patient testing purposes. It should not be regarded as investigational or for research. Test performed at [facility], [address] , [place] [address] Dorothy Mac MD, PhD - Commissary Worker Blood Venous blood specimen / Unknown Venipuncture / Unknown 11/25/2024 10:45 AM EDT 11/25/2024 10:45 AM EDT Samina Witt MD LAB BLOOD ORDERABLES Fi nal Result Performing Organization Address City/[facility]/ZIP Co de Phone Number [facility] [address] [place] [address] * Selenium serum (11/25/2024 10:45 AM EDT) Selenium 142 63 - 160 mcg/L 11/28/2024 9:10 PM EDT [facility] Comment: This test was developed and its analytical performance characteristics have been determined by [facility] [place]. It has not been cleared or approved by the U.S. Food and Drug Administration. This assay has been validated pursuant to the CLIA regulations and is used for clinical purposes. Test Performed by [facility], [facility], [address] [place] [address] Travis Wayne M.D., Ph.D., Director of Laboratories , CLIA [id number] Blood Venous blood specimen / Unknown Venipuncture / Unknown 11/25/2024 10:45 AM EDT 11/25/2024 10:45 AM EDT us Samina Witt MD LAB BLOOD ORDERABLES Fi nal Result [facility] [address] [place] [address] * (ABNORMAL) Vitamin D 25 hydroxy (11/25/2024 10:45 AM EDT) [facility] Vit D, 25-Hydroxy 25.6(L) 30.0 - 80.0 ng/mL LAB CHEMISTRY METHOD 11/25/2024 4:27 PM EDT [facility] Blood Venous blood specimen / Unknown Venipuncture / Unknown 11/25/2024 10:45 AM EDT 11/25/2024 10:45 AM EDT us Samina Witt MD LAB BLOOD ORDERABLES Fi nal Result [facility] [address] [place] [address], [place] [phone] * Vitamin B1 (11/25/2024 10:45 AM EDT) [facility] Vitamin B1 Whole Blood 39 38 - 122 ug/L 11/28/2024 6:16 AM EDT [facility] Comment: This test was developed and the performance characteristics determined by [facility]. It has not been cleared or approved by the FDA. The laboratory is regulated under CLIA as qualified to perform high-complexity testing. This test is used for patient testing purposes. It should not be regarded as investigational or for research. Test performed at [facility], [address] [place] [address] Dorothy Mac MD, PhD - Commissary Worker Blood Venous blood specimen / Unknown Venipuncture / Unknown 11/25/2024 10:45 AM EDT 11/25/2024 10:45 AM EDT Samina Witt MD LAB BLOOD ORDERABLES Fi nal Result Performing Organization Address City/[facility]/ZIP Co de Phone Number [facility] [address] [place] [address] * (ABNORMAL) Vitamin B6 (11/25/2024 10:45 AM EDT) Vitamin B6 (Pyridoxine) Level <2(L) 5 - 50 ug/L 12/01/2024 12:50 PM EDT [facility] Comment: This test was developed and the performance characteristics determined by [facility]. It has not been cleared or approved by the FDA. The laboratory is regulated under CLIA as qualified to perform high-complexity testing. This test is used for patient testing purposes. It should not be regarded as investigational or for research. Test performed at [facility], [address] [place] [address] Dorothy Mac MD, PhD - Commissary Worker Blood Venous blood specimen / Unknown Venipuncture / Unknown 11/25/2024 10:45 AM EDT 11/25/2024 10:45 AM EDT us Samina Witt MD LAB BLOOD ORDERABLES Fi nal Result Performing Organization Address City/[facility]/ZIP Co de Phone Number [facility] [address] [place] [address] * Vitamin B12 (11/25/2024 10:45 AM EDT) Vitamin B-12 291 250 - 900 pcg/mL LAB CHEMISTRY METHOD 11/25/2024 3:39 PM [facility] Blood Venous blood specimen / Unknown Venipuncture / Unknown 11/25/2024 10:45 AM EDT 11/25/2024 10:45 AM EDT us Samina Witt MD LAB BLOOD ORDERABLES Fi nal Result [facility] [address] [place] [address], [place] [phone] * Comprehensive metabolic panel (11/25/2024 10:45 AM EDT) Sodium 140 133 - 145 mmol/L LAB CHEMISTRY METHOD 11/25/2024 3:39 PM [facility] Potassium 3.5 3.5 - 5.5 mmol/L LAB CHEMISTRY METHOD 11/25/2024 3:39 PM [facility] Chloride 106 96 - 110 mmol/L LAB CHEMISTRY METHOD 11/25/2024 3:39 PM [facility] CO2 28 21 - 32 mmol/L LAB CHEMISTRY METHOD 11/25/2024 3:39 PM [facility] Anion Gap 6 3 - 11 LAB CHEMISTRY METHOD 11/25/2024 3:39 PM [facility] Glucose 95 70 - 100 mg/dL LAB CHEMISTRY METHOD 11/25/2024 3:39 PM [facility] BUN 13 5 - 25 mg/dL LAB CHEMISTRY METHOD 11/25/2024 3:39 PM [facility] Creatinine 0.73 0.50 - 1.10 mg/dL LAB CHEMISTRY METHOD 11/25/2024 3:39 PM [facility] eGFR 105 >=60 mL/min/1. 73m2 LAB CHEMISTRY METHOD 11/25/2024 3:39 PM [facility] Comment:Calculation based on the Chronic Kidney Disease Epidemiology Collaboration (CKD-EPI) equation refit without adjustment for race. BUN/Creatinine Ratio 17.8 LAB CHEMISTRY METHOD 11/25/2024 3:39 PM [facility] Calcium 9.6 8.5 - 10.5 mg/dL LAB CHEMISTRY METHOD 11/25/2024 3:39 PM [facility] AST (SGOT) 11 10 - 42 unit/L LAB CHEMISTRY METHOD 11/25/2024 3:39 PM [facility] ALT (SGPT) 20 10 - 60 unit/L LAB CHEMISTRY METHOD 11/25/2024 3:39 PM [facility] Alkaline Phosphatase 70 42 - 121 unit/L LAB CHEMISTRY METHOD 11/25/2024 3:39 PM [facility] Total Protein 7.5 6.0 - 8.0 g/dL LAB CHEMISTRY METHOD 11/25/2024 3:39 PM [facility] Albumin 3.9 3.2 - 5.0 g/dL LAB CHEMISTRY METHOD 11/25/2024 3:39 PM [facility] Total Bilirubin 0.5 0.0 - 1.4 mg/dL LAB CHEMISTRY METHOD 11/25/2024 3:39 PM [facility] Blood Venous blood specimen / Unknown Venipuncture / Unknown 11/25/2024 10:45 AM EDT 11/25/2024 10:45 AM EDT us Samina Witt MD LAB BLOOD ORDERABLES Fi nal Result [facility] [address] [place] [address], * Lipid panel with reflex to direct LDL (05/12/2024 7:50 AM EST) Cholesterol 141 0 - 200 mg/dL LAB CHEMISTRY METHOD 05/12/2024 10:34 AM EST [facility] Triglycerides 70 0 - 150 mg/dL LAB CHEMISTRY METHOD 05/12/2024 10:34 AM [facility] HDL 42 >=40 mg/dL LAB CHEMISTRY METHOD 05/12/2024 10:34 AM [facility] LDL Calculated 85 0 - 100 mg/dL LAB CHEMISTRY METHOD 05/12/2024 10:34 AM [facility] VLDL Cholesterol Laz 14 mg/dL LAB CHEMISTRY METHOD 05/12/2024 10:34 AM [facility] Non HDL Chol. (LDL+VLDL) 99 <145 mg/dL LAB CHEMISTRY METHOD 05/12/2024 10:34 AM [facility] Chol/HDL Ratio 3.4 0.0 - 4.4 LAB CHEMISTRY METHOD 05/12/2024 10:34 AM [facility] Blood Venous blood specimen / Unknown Venipuncture / Unknown 05/12/2024 7:50 AM EST 05/12/2024 7:50 AM EST Samina Witt MD LAB BLOOD ORDERABLES nal Result [facility] [address] [place] [address], from Last 3 Months or Most Recently [...] 6:03 AM 08/15/2024 11:02 PM This is or homar is used when code status has not been discussed with the patient, or code status is otherwise unknown/unconfirmed To update the patient's code status, place a code status order. Do not modify or discontinue any currently active code status orders. Care Teams Racker Octave Board Relationship Specialty Start Date End Date Gabrielle Shea NP [address] [place] [phone] PCP - General 12/28/22
--- OUTSIDE RECORDS SUMMARY | 2025-01-03 15:05 | XMS_ITS | Encounter Summary ---
Author Organization [employer] Address [address] [facility] [address] [place] [address] Care Team Providers Care Corsage Maker Name Role Phone Gabrielle Shea Primary Care Provider Reason for Visit * Reason Comments Med Refill Encounter Details Date Type Department Care Team ([facility] st Contact Info) Description 01/23/2024 Refill [facility] [address] [place], [place] [phone] Gabrielle Shea ANP [address] [place] [address] Migraine without aura and without status migrainosus, [...] documented as of this encounter Care Teams Corsage Maker Relationship Specialty Start Date End Date Gabrielle Shea ANP [address] [place] [address] PCP - General Family Medicine 12/20/20 documented as of this encounter
--- OUTSIDE RECORDS SUMMARY | 2025-01-03 15:05 | XMS_ITS | Encounter Summary ---
Author Organization [employer] Address [address] [facility] [address] [place] [address] Care Team Providers Care Family Support Specialist Name Role Phone Gabrielle Shea Primary Care Provider [phone] Reason for Visit * Reason Comments Med Refill Encounter Details Date Type Department Care Team ([facility] st Contact Info) Description 10/25/2023 Refill [facility] MED[facility] [address] [place], [place] [phone] Gabrielle Shea ANP 230 [place] [address] Migraine without aura and without status migrainosus, [...] documented as of this encounter Care Teams Family Support Specialist Relationship Specialty Start Date End Date Gabrielle Shea ANP [address] [place] [address] PCP - General Family Medicine 12/20/20 documented as of this encounter
--- OUTSIDE RECORDS SUMMARY | 2025-01-03 15:05 | XMS_ITS | Encounter Summary ---
Author Organization [employer] Address [address] [place] [address] [address] [place] [address] Care Team Providers Care Frame Table Operator Helper Name Role Phone Gabrielle Shea Primary Care Provider Reason for Visit * Reason Onset Date Comments Med Refill 06/25/2023 Encounter Details Date Type Department Care Team (Late st Contact Info) Description 06/25/2023 Refill [facility] MEDICINE 230 [place], [place] [phone] Gabrielle Shea ANP [address] [place] [address] Social History Tobacco Use Types Packs/Day Years [...] enough money to get more: Never True 10/ Transportation Answer Date Recorded In the past [...] things Nearly every day 06/26/2023 3:16 PM Ketuarh Hung Feeling down, depressed, or hopeless Nearly [...] on filedocumented in this encounter Care Teams Frame Table Operator Helper Relationship Specialty Start Date End Date Gabrielle Shea ANP [address] [place] [address] PCP - General Family Medicine 12/20/20 documented as of this encounter
--- OUTSIDE RECORDS SUMMARY | 2025-01-03 15:05 | XMS_ITS | Clinical Summary ---
Author Organization [facility] Address [address] [place] [address] Phone Care Team Providers Care General Ophthalmologist Name Role Phone Gabrielle Shea NP Primary Care Provider [phone] Allergies Active Allergy Reactions Criticality Noted Date Comments Hydroxyzine Hcl 07/30/2019 Hives and angioedema in the setting of a flare. Plan for in office challenge in the future Nitrofurantoin Other (See Comments) Low 07/21/2022 GI upset Wheat Bran 06/27/2022 Medications celecoxib (CELEBREX) 100 MG capsule Take 100 mg by mouth 2 (two) times a day. Active fexofenadine (RICK) 180 MG tablet Take 180 mg by mouth daily. Active albuterol (VENTOLIN HFA) 90 mcg/actuation inhaler Take 2 puffs by mouth every 4 (four) hours as needed. 3 Active escitalopram oxalate (LEXAPRO) 10 MG tablet Take 10 mg by mouth. 2 Active ferrous sulfate 325 mg (65 mg mcgrath iron) tablet TAKE 1 TABLET BY MOUTH EVERY DAY OR EVERY OTHER DAY DIRECTED WITH ORANGE JUICE OR VITAMIN C 2 Active traMADoL (ULTRAM) 50 mg tablet TAKE 2 TABLETS BY MOUTH EVERY 8 HOURS NEEDED FOR SEVERE PAIN 3 Active zolpidem (AMBIEN) 10 mg tablet TAKE 1 TABLET BY MOUTH DAILY AT BEDTIME NEEDED for SLEEP 3 Active cholecalciferol (VITAMIN D3) 50,000 unit capsuleIndicati ons:Vitamin D deficiency Take 1 capsule (50,000 Units total) by mouth once a week. 4 capsule 1 3 Active naproxen (NAPROSYN) 500 MG tablet TAKE 1 TABLET BY MOUTH TWICE DAILY WITH BREAKFAST AND WITH DINNER 3 Active tiZANidine (ZANAFLEX) 2 MG tablet Take 2 mg by mouth every 8 (eight) hours as needed. 3 Active butalbital-acet aminophen-caffe ine (FIORICET, ESGIC) 50-325-40 mg per tablet Take 1 tablet by mouth every 4 (four) hours as needed for pain (specific location in comments). Active SUMAtriptan (IMITREX) 100 MG tablet Take 100 mg by mouth. 3 Active Active Problems Problem Noted Date Diagnosed Date Morbid obesity with BMI of 40.0-44.9, adult 09/2022 Assessment & Plan (05/01/2023 9:52 AM EST): This is a 42-year-old woman who is interested in a laparoscopic sleeve gastrectomy for weight loss. The patient has gained 2.6 pounds and now has 25.8 pounds to lose before being a surgical weight loss candidate. She just started exercising yesterday and will continue exercising at least 30 minutes 3 times weekly. She has attended 1 out of 2 support groups, she has completed 1 out of 5 nutrition classes, 2 out of 2 behavioral health assessments and has been cleared, and all required testing. The patient will resume the eating plan that was given initially and continue current water intake. She will follow-up with the dietitian in 2 weeks and follow-up with me again in 4 weeks timeframe. She is not stable and is considered morbidly obese. Assessment & Plan (03/19/2023 9:37 AM EST): This is a 42-year-old woman who is interested in a laparoscopic sleeve gastrectomy for weight loss. Patient has lost 5.8 pounds and now has 23.2 more pounds to lose before being a surgical weight loss candidate. She has completed 1 out of 5 nutrition classes, 2 out of 2 behavioral health assessments and has been cleared and all required testing. The patient was asked to add some formalized exercise at least 20 to 30 minutes 3 times weekly. She will continue current water intake. I have asked her to take MiraLAX every day or every other day to decrease her constipation. The patient will continue current eating plan. She is not stable and is considered morbidly obese. She will continue current medications as reviewed. She will follow-up with the dietitian in 2 weeks and follow-up with me again in 6 weeks timeframe. Assessment & Plan (02/02/2023 11:17 AM EDT): This is a 42 YO patient who is interested in weight loss surgery, specifically the laparoscopic sleeve gastrectomy for weight loss. We have discussed gastric bypass and sleeve gastrectomy surgery in detail including risks, benefits, and alternatives. We have also discussed requirements preop and post op. They understands that they are required to lose about 10 percent of their current weight which is 28 lbs. The goal weight at the time of submission to the insurance company will be 256 pounds. In an effort to help the patient to lose weight I have prescribed an eating plan which will consist of a protein shake or a protein bar or Indonesian yogurt or cottage cheese to be consumed at 9 AM and 3 PM daily. The patient will consume 4 ounces of protein with 6 ounces of vegetable or small salad with a noncreamy salad dressing of not more than 2 tablespoons at 12 PM and 6 PM daily. At the 6 PM meal the patient may have 1/2 cup of carbohydrate. We have ordered required labs and testing. The patient will attend 5 nutrition classes, 2 appointments, and dietitian consultation. The patient will need to obtain a medical clearance letter from the primary care doctor prior to submission to the insurance company. The patient will see the dietitian in 2 and 4 weeks and I will follow up with them again in 6 weeks to ensure compliance with the meal plan. The patient will continue current medications as reviewed. They are not stable and are considered morbidly obese. I spent 56 minutes with this patient which also included documentation. Preoperative examination 02/02/2023 Other obesity 02/02/2023 Family History Medical History Relation Comments Diabetes type II Maternal Grandmother Hypertension Maternal Grandmother Arthritis Mother Breast cancer Mother Lupus Mother Stroke Paternal Grandfather Cancer Paternal Grandmother Relation Status Comments Brother 1 Alive Brother 2 Alive Father Alive Maternal Grandfather Alive Maternal Grandmother Mother Alive Paternal Grandfather Paternal Grandmother Sister Alive Social History Tobacco Use Types Packs/Day Years Used Date Smoking Tobacco: Former Cigarettes Q uit: 2007 Smokeless Tobacco: Never Tobacco Cessation:Counseling Given: Not Answered Alcohol Use Standard Drinks/Week Comments Never 0 (1 standard drink = 0.6 oz pur e alcohol) Education Answer Date Recorded Are you interested in more education? Not on jerardo e 08/25/2022 Are you concerned about learning? Not on file 08/25/2022 No 08/25/2022 No 08/25/2022 Digital Access Answer Date Recorded No 09/23/2022 No 09/23/2022 Reliable internet access at home? Not on file 09/23/2022 Device with a working camera? 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 Not on file Not on jerardo e Last Filed Vital Signs Vital Sign Reading Time Taken Comments Blood Pressure 108/70 05/01/2023 9:00 AM EST Pulse 71 05/01/2023 9:00 AM EST Temperature 36.3 C (97.3 F) 05/01/2023 9:00 AM EST Respiratory Rate - - Oxygen Saturation 96% 05/01/2023 9:00 AM EST Inhaled Oxygen Concentration - - Weight 127.4 kg (280 lb 12.8 oz) 05/01/2023 9:00 AM EST Height 171.5 cm (5' 7.52 ) 05/01/2023 9:00 AM ES T Body Mass Index 43.3 05/01/2023 9:00 AM EST Plan of Treatment Health Maintenance Due Date Last Done Comments DEPRESSION SCREENING 1994 SMOKING Hx and SMOKELESS TOBACCO SCREENING 08/22/1995 HEPATITIS C SCREENING 2000 HIV ONE-TIME SCREENING (18-65 YEARS) 2000 PAP SMEAR 08/22/2003 MAMMOGRAM 11/02/2024 11/02/2022, 11/02/2022 INFLUENZA VACCINE (#1) 2024 3, 01/13/2021, 01/08/2019, Additional history exists COVID-19 VACCINE ( season) 2024 03/11/2021, 08/05/2020, 07/08/2020 SCREENING FOR DIABETES 04/16/2026 3, 02/06/2023, 02/06/2023 Adult Td,Tdap Booster 07/08/2029 07/09/2019, 016 HEPATITIS A VACCINES Aged Out 07/09/2019, 12/14/19 19 No longer eligible based on patient's age to complete this topic HIB VACCINES Aged Out No longer eligi ble based on patient's age to complete this topic MENINGOCOCCAL VACCINES (ACWY) Aged Out No longer eligible based on patient's age to complete this topic MENINGOCOCCAL VACCINES (B) Aged Out N o longer eligible based on patient's age to complete this topic PNEUMOCOCCAL VACCINES (0-49 years) Aged Out No longer eligible based on patient's age to complete this topic Medical Devices Not on file Insurance [employer]CO Care Teams General Ophthalmologist Relationship Specialty Start Date End Date Gabrielle Shea NP [address] [place] [phone] PCP - General Family Medicine 05/28/19 Additional Source Comments The information contained in this document represents components of the legal health record. It is not the complete legal health record.[facility]
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
--- OUTSIDE RECORDS SUMMARY | 2025-01-03 15:05 | XMS_ITS | Encounter Summary ---
Author Organization [employer] Address [address] [place] [address] [address] [place] [address] Care Team Providers Care Automobile Brake Bonder Name Role Phone Monse Gabrielle WHITE Primary Care Provider [phone] Reason for Visit * Reason Onset Date Comments Med Refill 06/25/2023 Encounter Details Date Type Department Care Team (Late st Contact Info) Description 06/25/2023 Refill [facility] MEDICINE [address] [place], [place] [phone] Jessie Guzmán MD [address] [place] [address] Social History Tobacco Use Types Packs/Day Years [...] on filedocumented in this encounter Care Teams Automobile Brake Bonder Relationship Specialty Start Date End Date Gabrielle Shea ANP [address] [place] [address] PCP - General Family Medicine 12/20/20 documented as of this encounter
--- OUTSIDE RECORDS SUMMARY | 2025-01-03 15:05 | XMS_ITS | Encounter Summary ---
Author Organization [employer] Address [address] [place] [address], [place] [address] Care Team Providers Care Security Door Installer Name Role Phone Gabrielle Shea Primary Care Provider [phone] Reason for Visit * Reason Comments Med Refill Encounter Details Date Type Department Care Team (Late st Contact Info) Description 11/30/2022 Refill [facility] MEDICINE [address] [place] [address] Gabrielle Shea ANP 230 [place] [address] Chronic bilateral low back pain, unspecified whether [...] present documented in this encounter Care Teams Security Door Installer Relationship Specialty Start Date End Date Gabrielle Shea ANP [address] [place] [address] PCP - General Family Medicine 12/20/20 documented as of this encounter
--- OUTSIDE RECORDS SUMMARY | 2025-01-03 15:05 | XMS_ITS | Encounter Summary ---
Author Organization [facility] Address [address] [place] [address] [address] [place] [address] Phone Care Team Providers Care Cookie Mixer Helper Name Role Phone Gabrielle Shea NP Primary Care Provider [phone] Reason for Referral * Consultation (Within 1 month) - Closed Specialty Diagnoses / Procedures Referred By Contac t Referred To Contact Rheumatology Gabrielle Shea NP Phone: tel: fax: [facility] [address] [place] [address] Phone: tel: Referral ID Status Reason Start Date Expiration Date Visits Re quested Visits Authorized [id number] Closed 07/08/2019 07/07/2020 6 0 Encounter Details Date Type Department Care Team (Late st Contact Info) Description 07/08/2019 Transcribe Orders [facility] Rheumatology [place] [address] [facility] 4th [address], [address] [place] [address] Gabrielle Shea NP [address] [place] [address] Social History Tobacco Use Types Packs/Day Years Used Date Smoking Tobacco: Never Assessed Comments Unknown Sex and Gender Information Value Date Recorded Sex Assigned at Female 02/01/2023 3:24 PM EDT Legal Sex Female 11:01 AM EST Gender Identity Female 02/01/2023 3:24 PM EDT Sexual Orientation Straight 02/01/2023 3: 24 PM EDT documented as of this encounter Plan of Treatment Scheduled Referrals Name Type Priority Associated Diagnoses Order Schedule Ambulatory referral to [facility] Rheumatology Outpatient Referral Routine Ordered: 07/08/2019 documented as of this encounter Visit Diagnoses Not on filedocumented in this encounter Care Teams Cookie Mixer Helper Relationship Specialty Start Date End Date Gabrielle Shea NP [address] [place] [address] PCP - General Family Medicine 05/28/19 documented as of this encounter Additional Source Comments The information contained in this document represents components of the legal health record. It is not the complete legal health record.[facility]
--- OUTSIDE RECORDS SUMMARY | 2025-01-03 15:05 | XMS_ITS | Encounter Summary ---
Author Organization [employer] Address [address] [place] [address] [place] [address] Care Team Providers Care Wool Broker Name Role Phone Gabrielle Shea Primary Care Provider Encounter Details Date Type Department Care Team (Late st Contact Info) Description 06/27/2022 Orders Only [facility] [address] [place], [place] [phone] Gabrielle Shea ANP 230 [place] [address] Urinary frequency (Primary Dx) Social History Tobacco [...] Primary documented in this encounter Care Teams Wool Broker Relationship Specialty Start Date End Date Gabrielle Shea ANP [address] [place] [address] PCP - General Family Medicine 12/20/20 documented as of this encounter
--- OUTSIDE RECORDS SUMMARY | 2025-01-03 15:05 | XMS_ITS | Encounter Summary ---
Author Organization [employer] Address [address] [facility] 7t [place] [address] Care Team Providers Care Hydroelectric Component Machinist Name Role Phone Monse Gabrielle WHITE Primary Care Provider [phone] Reason for Visit * Reason Onset Date Comments Med Refill 07/31/2023 Encounter Details Date Type Department Care Team (Late st Contact Info) Description 07/31/2023 Refill [facility] 230 [place] [address] Lori García MD [address] [place] [address] Neck pain; Upper back pain; Acute bilateral [...] your housing situation today? I have aminata luis f 02/06/[address] you li [...] documented as of this encounter Care Teams Hydroelectric Component Machinist Relationship Specialty Start Date End Date Gabrielle Shea ANP [address] [place] [address] PCP - General Family Medicine 12/20/20 documented as of this encounter
--- OUTSIDE RECORDS SUMMARY | 2025-01-03 15:05 | XMS_ITS | Encounter Summary ---
Author Organization [employer] Address [address] [place] [address] [address] [place] [address] Care Team Providers Care Director Of Exhibit Development Name Role Phone Monse Gabrielle WHITE Primary Care Provider [phone] Reason for Visit * Reason Onset Date Comments Med Refill 07/31/2023 Encounter Details Date Type Department Care Team (Late st Contact Info) Description 07/31/2023 Refill [facility] 230 [place], [place] [phone] Sheryl Diana MD 230 [place], [place] [phone] Migraine without aura and without status migrainosus, [...] documented as of this encounter Care Teams Director Of Exhibit Development Relationship Specialty Start Date End Date Gabrielle Shea ANP 230 [place] [address] PCP - General Family Medicine 12/20/20 documented as of this encounter
--- OUTSIDE RECORDS SUMMARY | 2025-01-03 15:05 | XMS_ITS | Encounter Summary ---
Author Organization [employer] Address [address] [place] [address] [address] [address] Care Team Providers Care Sampling Expert Name Role Phone Gabrielle Shea Primary Care Provider [phone] Reason for Visit * Reason Comments Med Refill Encounter Details Date Type Department Care Team (Late st Contact Info) Description 11/28/2022 Refill [facility]INE 230 [place] [address] Gabrielle Shea ANP 230 [place] [address] Chronic bilateral low back pain, unspecified whether [...] present documented in this encounter Care Teams Sampling Expert Relationship Specialty Start Date End Date Gabrielle Shea ANP 230 [place] [address] PCP - General Family Medicine 12/20/20 documented as of this encounter
== END 2025-01-03 15:03 | disposition home or self-care (01) ==
LOC: HO.MRI 15:02
PROVIDERS: PCP Nurse Practitioner Primary Care; Visit Provider Physical Medicine & Rehabilitation
DX: M54.16 Radiculopathy, lumbar region (principal)
CPT/HCPCS: 72148

== ENCOUNTER 2025-01-16 08:21 | Outpatient (AMB) | payer MEDICAID, SELFPAY ==
--- NOTE | 2025-01-16 08:29 | A.OFFVIS_ITS ---
Intake Visit Reasons: OV-Upper/Lower Back MRI Review,01/03/25. Intake Note: Ro is a 44 year old female who presents today as a MRI review of her Lumbar spine,01/03/25. At today's visit she states that she is starting to have left hip/SI joint pain for the past few day's. Allergies hydroxyzine (HYDROXYZINE) Allergy (Severe, Verified 01/16/25 08:33) ANAPHYLAXIS, rash nitrofurantoin Allergy (Severe, Verified 01/16/25 08:33) Hives wheat Allergy (Severe, Verified 01/16/25 08:33) ANAPHYLAXIS dust mites Allergy (Intermediate, Verified 01/16/25 08:33) hives Medication List - Last Reconciled 01/16/25 by Janette Fuentes MD albuterol sulfate 90 mcg/actuation (ProAir HFA) 2 puffs inhalation QID naproxen (Naprosyn) 500 mg PO BID sumatriptan succinate 100 mg PO DAILY PRN topiramate XR 50 mg PO DAILY tramadol 50 mg PO Q6H PRN 8 days zolpidem (Ambien) 10 mg PO BEDTIME HPI Comments Details: On further review of history, patient did have severe right-sided back pain many years ago. Severe enough needing high dose of tramadol and could not walk. That pain has come down. She maintains her pain now is right-sided, around the SI joint area, nonradicular. However since PNS was placed, she feels more pain and discomfort going up towards her upper back. Review of an MRI report 2016, showed a shallow right paracentral disc protrusion that resulted in mild mass effect on the traversing right L5 nerve root. She did not have any epidural injection at that time. The severe pain did improve over time. She has weaned herself off from the high dose of tramadol, taking 100 mg once a day spread between few days apart. As mentioned previously, she did have diagnostic SI joint injection under pain management, and then PNS was placed. However right-sided back pain has not improved. CT abdomen 08/31/2024 reported that leads were not attach. We repeated lumbar MRI. Disc bulge L4-5 on MRI but not touching nerve root. FORMERLY [facility], [facility] Medical History Palpitations Sacroiliac joint pain Anemia Surgical History S/P placement of nerve stimulator History of cholecystectomy H/O tubal ligation Family History Mother Thyroid disease HTN (hypertension) Diabetes Depression Lupus Osteoarthritis Father HTN (hypertension) Pancreatic cancer Diabetes Stroke Social History Household Members Other:: mother in law Are you a primary floor care technician to a significant other at home: No Do you presently have visiting nurse or other home services: No Alcohol intake: never Comment: pt states her baseline is a 9 consistently Patient Tobacco Use Status: Never used Tobacco 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 Patient was appropriately conversant and oriented. Good historian. MSK: Her pain was focal on bilateral SI joints, right worse than left. There was no allodynia or hypersensitivity on previous surgical scar or where her PNS are but indicated tenderness on the muscles nearby. Lumbar ROM was full. Gillet negative. Strength is 5/5 in all muscle groups tested. No increased tone noted. Neurological: Neurologic examination of the upper and lower extremities was nonfocal with intact sensation, muscle stretch reflexes and without focal motor deficits . Babinski was down going bilaterally. Clonus was negative. Gait is non-antalgic without loss of balance. Results Reviewed Results Reviewed: Ordering Physician: Janette Monroe Date of Service: 01/03/25 Procedure(s): MR lumbar spine con Accession Number(s): [id number] cc: Janette Monroe; SUSAN NANCE DIP DYER~ Reason for Exam: M54.16 - Radiculopathy, lumbar region EXAMINATION: MR LUMBAR SPINE WITHOUT CONTRAST CLINICAL INFORMATION: Low back pain with radiculopathy. Right arm and toe weakness and numbness . COMPARISON: MRI lumbar spine 12/21/2016 TECHNIQUE: MRI of the lumbar spine was obtained using routine sequences without contrast. FINDINGS: There is normal lumbar lordosis. The vertebral heights and alignment is normal. There is mild loss of L5-S1, L4-5 disc heights with mild disc desiccation change. Rest of the disc heights are normal height and signal. The T12-L1 through L2-3 disc level appears unremarkable. At L3-4 disc level there is mild disc desiccation change without disc herniation or spinal canal stenosis. The neural foramina are patent bilaterally. L4-5 disc level there is mild diffuse bulge indenting the ventral thecal sac but without spinal canal stenosis. The neural foramina are mildly narrowed bilaterally. Similar findings were seen on the previous exam 2017 At L5-S1 disc level there is no signal disc bulge, herniation or spinal canal stenosis. The neural foramina are patent bilaterally. Mild endplate changes seen at L5-S1 disc level. Rest the bone marrow signal is normal. Conus medullaris terminates at 2 and appears normal in morphology. The paravertebral soft tissues are normal. MR/MR lumbar spine wo con IMPRESSION: Mild disc desiccation and degenerative disc bulge L4-5 disc level indenting the ventral thecal sac disc but without spinal canal stenosis. The neural foramina are mildly narrowed bilaterally. Minimal disc desiccation changes L3-4 and L5-S1 disc levels. No major change compared to previous study 12/21/2016. Electronically signed by: Cornel Mann MD 01/05/2025 07:13 AM EDT RP Assessment & Plan Assessment & Plan (1) Sacroiliac joint dysfunction of right side: Code(s): M53.3 - Sacrococcygeal disorders, not elsewhere classified Category: Medical Plan I agree that she is presenting with symptoms related to SI joint dysfunction. She has no signs of lumbar radiculopathy or myelopathy. Repeat lumbar MRI has shown improvement of the disc herniation at L4-5, it is no longer touching or causing mass effect on L5 nerve root. Patient denies any radicular symptoms. Perhaps some of her discomfort is coming from PNS leads. She will discuss with pain management whether these can be removed. I have also sent a message to Dr. Edward if down the road, a right SI joint steroid injection would be appropriate. We talked about maneuvers to avoid exacerbating SI joint pain. We also briefly discussed possibility of a right L5 transforaminal epidural injection. Assessment and plan discussed with patient, and patient was agreeable. All questions were answered thoroughly. Janette Fuentes MD, NURYS Board Certified, [place] Board of Physical Medicine and Rehabilitation (ABPMR) Board Certified, [place] Board of Electrodiagnostic Medicine (ABEM) Coding Level of Care Code Est Pt Level 4 (10262) Diagnoses Sacroiliac joint dysfunction of right side M53.3
--- OUTSIDE RECORDS SUMMARY | 2025-01-16 08:51 | XMS_ITS | Encounter Summary ---
Author Organization [employer] Address [address] [facility] 7t [place] [address] Care Team Providers Care Tone Regulator Name Role Phone Monse Gabrielle WHITE Primary Care Provider [phone] Reason for Visit * Reason Onset Date Comments Med Refill 07/31/2023 Encounter Details Date Type Department Care Team (Late st Contact Info) Description 07/31/2023 Refill [facility] 230 [place] [address] Lori García MD 230 [place] [address] Neck pain; Upper back pain; Acute bilateral [...] documented as of this encounter Care Teams Tone Regulator Relationship Specialty Start Date End Date Gabrielle Shea ANP [address] [place] [address] PCP - General Family Medicine 12/20/20 documented as of this encounter
--- OUTSIDE RECORDS SUMMARY | 2025-01-16 08:51 | XMS_ITS | Encounter Summary ---
Author Organization [employer] Address [address] [place] [address] [address] [address] Care Team Providers Care Lactation Consultant Name Role Phone Monse Gabrielle WHITE Primary Care Provider [phone] Reason for Visit * Reason Onset Date Comments Med Refill 06/25/2023 Encounter Details Date Type Department Care Team (Late st Contact Info) Description 06/25/2023 Refill [facility] MEDICINE 230 [place], [place] [phone] Jessie Guzmán MD 230 [place] [address] Social History Tobacco Use Types Packs/Day Years [...] family down Several days 06/26/2023 3:16 PM Keutrah Gonzales Trouble concentrating on things, such as [...] on filedocumented in this encounter Care Teams Lactation Consultant Relationship Specialty Start Date End Date Gabrielle Shea ANP [address] [place] [address] PCP - General Family Medicine 12/20/20 documented as of this encounter
--- OUTSIDE RECORDS SUMMARY | 2025-01-16 08:51 | XMS_ITS | Encounter Summary ---
Author Organization [employer] Address [address] [place] [address] [address] [address] Care Team Providers Care Enterprise Software Engineer Name Role Phone Gabrielle Shea Primary Care Provider [phone] Reason for Visit * Reason Comments Med Refill Encounter Details Date Type Department Care Team (Late st Contact Info) Description 11/30/2022 Refill [facility] MEDICINE [address] [place] [address] Gabrielle Shea ANP 230 [place] [address] Chronic bilateral low back pain, unspecified whether [...] present documented in this encounter Care Teams Enterprise Software Engineer Relationship Specialty Start Date End Date Gabrielle Shea ANP 230 [place] [address] PCP - General Family Medicine 12/20/20 documented as of this encounter
--- OUTSIDE RECORDS SUMMARY | 2025-01-16 08:51 | XMS_ITS | Encounter Summary ---
Author Organization [employer] Address [address] [place] [address] [address] [address] Care Team Providers Care Sap Bobj Developer Name Role Phone Gabrielle Shea Primary Care Provider [phone] Reason for Visit * Reason Onset Date Comments Med Refill 06/25/2023 Encounter Details Date Type Department Care Team (Late st Contact Info) Description 06/25/2023 Refill [facility] MED[facility]INE 230 [place], [place] [phone] Gabrielle hSea ANP [address] [place] [address] Social History Tobacco Use Types Packs/Day Years [...] on filedocumented in this encounter Care Teams Sap Bobj Developer Relationship Specialty Start Date End Date Gabrielle Shea ANP [address] [place] [address] PCP - General Family Medicine 12/20/20 documented as of this encounter
--- OUTSIDE RECORDS SUMMARY | 2025-01-16 08:51 | XMS_ITS ---
Results: 1Negative Date of Service: 11/13/24 Follow Up: 1 Year From Orig ina Mammogram Procedure(s): MM tomosynthesis screening BI Accession Number(s): [id number] cc: SUSAN NANCE NP EXAMINATION: MM SCREENING [...] in OV> 11/21/242020 DD/ TD/TT: 11/13/24 0748 Cutter Apprentice Hand: Procedure Note Donotuseinterpreter, Image - [facility]21/[facility] [address] [place] [address] Mammography Report Signed Patient: Ro Marks OMR#: [id number] : 1980Acct:[id number] Age/Sex: 44 / FADM Date: 11/13/24 Loc: HO.MAMMO Attending Dr: Susan Nance NP Ordering Physician: SUSAN NANCE NPResults: 1Negative Date of Service: 11/13/24Follow Up: 1 Year From Orig ina Mammogram Procedure(s): MM tomosynthesis screening BI Accession Number(s): [id number] cc: SUSAN NANCE NP EXAMINATION: MM SCREENING [...] Tahir Stevens MD in OV> 11/21/242020 DD/ 0732 TD/TT: 11/13/24 0748 Cutter Apprentice Hand: Susan Nance ANP IMG BI PROCEDURES Edited [...] along with historic and current clinical information. Rn Lab : SEE COMMENT [facility] Comment: GSG, CT(ASCP) CT screening location: [place] [address] Interpretation/R esult: Negative for intraepithelial lesion or malignancy. [facility] LMP: 12/19/20 [facility] Prev. BX: NONE [facility] Prev. PAP: NONE [facility]IV[facility] Review Rn Lab : SEE COMMENT [facility] Comment: DCR, CT(ASCP) CT screening location: [place] [address] SOURCE: None given [facility] Statement Of Adequacy: SEE COMMENT [facility] Comment: Satisfactory for evaluation. Endocervical/transformation zone component present. 12/30/2020 9:52 AM EDT Shonna BROWN LAB PATHOLOGY ORDERABLES Final Result Performing Organization Address [facility] de Phone Number [facility] [address] * HPV mRNA E6/E7 (12/30/2020 9:52 AM EDT) HPV nRNA E6/E7 Not Detected Not Detected [facility] Comment: Methodology: Test Equipment Mechanic-Mediated Amplification This assay detects E6/E7 viral messenger RNA (mRNA) from 14 high-risk HPV types (16,18,31,33,35,39,45,51,52,56,58,59,66,68). The analytical performance characteristics of this assay have been determined by [employer]. The modifications have not been cleared or approved by the FDA. This assay has been validated pursuant to the CLIA regulations and is used for clinical purposes. For additional information, please refer to http://education.[employer]/faq/ICK107c4 (This link if provided for information/ educational purposes only.) 12/30/2020 9:52 AM EDT Shonna [facility]OWN LAB BLOOD ORDERABLES Nessa l Result Performing Organization Address [facility] Co de Phone Number [facility] [address] from Last 3 Months or Most Recently Relevant to Health Maintenance Insurance [employer] Care Teams Linker Up Relationship Specialty Start Date End Date Susan Nance ANP [address] [place] [address] PCP - General Family Medicine 12/20/20
--- OUTSIDE RECORDS SUMMARY | 2025-01-16 08:51 | XMS_ITS | Encounter Summary ---
Author Organization [employer] Address [address] [place] [address] [place] [address] Care Team Providers Care Tape Recording Machine Operator Name Role Phone Gabrielle Shea Primary Care Provider [phone] Encounter Details Date Type Department Care Team (Late st Contact Info) Description 06/27/2022 Orders Only [facility] MED[facility]INE 230 [place], [place] [phone] Gabrielle Shea ANP 230 [place] [address] Urinary frequency (Primary Dx) Social History Tobacco [...] Primary documented in this encounter Care Teams Tape Recording Machine Operator Relationship Specialty Start Date End Date Gabrielle Shea ANP [address] [place] [address] PCP - General Family Medicine 12/20/20 documented as of this encounter
--- OUTSIDE RECORDS SUMMARY | 2025-01-16 08:51 | XMS_ITS | Encounter Summary ---
Author Organization [employer] Address [address] [place] [address] 7[place] [address] Care Team Providers Care Cylinder Press Feeder Name Role Phone Gabrielle Shea Primary Care Provider [phone] Reason for Visit * Reason Comments Med Refill Encounter Details Date Type Department Care Team (Late st Contact Info) Description 11/28/2022 Refill [facility]INE 230 [place] [address] Gabrielle Shea ANP 230 [place] [address] Chronic bilateral low back pain, unspecified whether [...] present documented in this encounter Care Teams Cylinder Press Feeder Relationship Specialty Start Date End Date Gabrielle Shea ANP 230 [place] [address] PCP - General Family Medicine 12/20/20 documented as of this encounter
--- OUTSIDE RECORDS SUMMARY | 2025-01-16 08:51 | XMS_ITS | Encounter Summary ---
Author Organization [employer] Address [address] [place] [address] [address] [address] Care Team Providers Care Graphic Art Designer Name Role Phone Monse Gabrielle WHITE Primary Care Provider [phone] Reason for Visit * Reason Onset Date Comments Med Refill 07/31/2023 Encounter Details Date Type Department Care Team (Late st Contact Info) Description 07/31/2023 Refill [facility] 230 [place], [place] [phone] Jessie Guzmán MD [address] [place] [address] Social History Tobacco Use Types Packs/Day Years [...] documented as of this encounter Care Teams Graphic Art Designer Relationship Specialty Start Date End Date Gabrielle Shea ANP 230 [place] [address] PCP - General Family Medicine 12/20/20 documented as of this encounter
--- OUTSIDE RECORDS SUMMARY | 2025-01-16 08:51 | XMS_ITS | Encounter Summary ---
Author Organization [employer] Address [address] [place] [address] [address] [address] Care Team Providers Care Recreation Engineer Name Role Phone Monse Gabrielle WHITE Primary Care Provider [phone] Reason for Visit * Reason Onset Date Comments Med Refill 07/31/2023 Encounter Details Date Type Department Care Team (Late st Contact Info) Description 07/31/2023 Refill [facility] MEDICINE 230 [place], [place] [phone] Sheryl Diana MD 230 [place], [place] [phone] Migraine without aura and without status migrainosus, [...] documented as of this encounter Care Teams Recreation Engineer Relationship Specialty Start Date End Date Gabrielle Shea ANP 230 [place] [address] PCP - General Family Medicine 12/20/20 documented as of this encounter
--- OUTSIDE RECORDS SUMMARY | 2025-01-16 08:51 | XMS_ITS | Clinical Summary ---
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 It is not the complete legal health record.[facility]
--- OUTSIDE RECORDS SUMMARY | 2025-01-16 08:52 | XMS_ITS | Encounter Summary ---
Author Organization [employer] Address [address] [facility] [address] [address] Care Team Providers Care Raise Drill Operator Name Role Phone Gabrielle Shea Primary Care Provider [phone] Reason for Visit * Reason Comments Med Refill Encounter Details Date Type Department Care Team ([facility] st Contact Info) Description 01/23/2024 Refill [facility] MEDICINE 230 [place], [place] [phone] Gabrielle Shea ANP 230 [place] [address] Migraine without aura and without status migrainosus, [...] documented as of this encounter Care Teams Raise Drill Operator Relationship Specialty Start Date End Date Gabrielle Shea ANP 230 [place] [address] PCP - General Family Medicine 12/20/20 documented as of this encounter
--- OUTSIDE RECORDS SUMMARY | 2025-01-16 08:52 | XMS_ITS | Encounter Summary ---
Author Organization [facility] Address [address] [place] [address] [address] [place] [address] Phone Care Team Providers Care Excellence Coach Name Role Phone Gabrielle Shea Primary Care Provider [phone] Reason for Referral * Consultation (Within 1 month) - Closed Specialty Diagnoses / Procedures Referred By Contac t Referred To Contact Rheumatology Gabrielle Shea ANP Phone: tel: fax: [facility] [address] [place] [address] Phone: tel: Referral ID Status Reason Start Date Expiration Date Visits Re quested Visits Authorized [id number] Closed 07/08/2019 07/07/2020 6 0 Encounter Details Date Type Department Care Team (Late st Contact Info) Description 07/08/2019 Transcribe Orders [facility] Rheumatology [place] [address] [facility], 4th Floor, [address] [place] [address] Gabrielle Shea ANP [address] [place] [address] Social History Tobacco Use Types Packs/Day Years [...] Associated Diagnoses Order Schedule Ambulatory referral to [facility] Rheumatology Outpatient Referral Routine Ordered: 07/08/2019 documented as of this encounter Visit Diagnoses Not on filedocumented in this encounter Care Teams Excellence Coach Relationship Specialty Start Date End Date Gabrielle Shea ANP [address] [place] [phone] PCP - General Family Medicine 05/28/19 documented as of this encounter Additional Source Comments The information contained in this document represents components of the legal health record. It is not the complete legal health record.[facility]
--- OUTSIDE RECORDS SUMMARY | 2025-01-16 08:52 | XMS_ITS | Clinical Summary ---
Author Organization [facility] Address [address] [place] [address] Phone Care Team Providers Care District Court Justice Name Role Phone Gabrielle Shea NP Primary Care Provider [phone] Allergies Active Allergy Reactions Criticality Noted Date [...] obesity with BMI of 4 0.0-44.9, adult ([facility] V24, [facility] V28) 06/04/2024 Class 3 severe obesity with body mass index (BMI) of 40.0 to 44.9 in adult ([facility] V24, [facility] V28) 02/07/2024 Chronic back pain 05/30/2023 Anxiety 05/30/2023 Urticaria 05/30/2023 Angioedema 05/30/2023 Resolved Problems Problem Noted Date Diagnosed Date Resolved Date Abdominal pain 08/31/2024 09/01/2024 Encounters Date Type Department Care Team Description 10/20/2024 9:00 AM EDT Office Visit Bariatric Surgery - [address] [phone] Samina Witt MD S/P gastric [...] care for your loved ones. For example, childhood development teacher or elderly care for an older [...] 8:30 AM EDT Office Visit Bariatric Surgery [address] [phone] Samina Witt MD [address] [place] [phone] Arrived 01/30/2025 8:30 AM EDT Office Visit Bariatric Surgery [address] [phone] Samina Witt MD [address] [place] [phone] Health Maintenance Due Date Last Done Comments Breast Cancer Screening 1982 Hepatitis B Vaccines (1 of 3 - 19+ 3-dose series) 2001 Pneumococcal Vaccine: Pediatrics (0 to 5 Years) and At-Risk Patients (6 to 49 Years) (1 of 2 - PCV) 2001 Cervical Cancer Screening: Pap Smear 08/22/2003 HIV Screening 05/25/2023 Hepatitis C Screening 05/25/2023 Depression Screening 04/30/2024 COVID-19 Vaccine ( - season) 2024 04/24/2023, 04/21/2022, 03/11/2021, Additional history exists Influenza Vaccine (#1) 2024 , 01/18/2023, 01/12/2022, Additional history exists Social Influencers of Health Screening 09/01/2025 09/01/2024 Hypertension/CHF/CAD Annual BMP Blood Test 11/25/2025 11/25/2024, 09/01/2024, 08/31/2024, Additional history exists Cholesterol Screening (Lipid Panel) 05/12/2029 05/12/2024, 02/06/2023 DTaP,Tdap,and Td Vaccines (3 - Td or Tdap) 07/08/2029 07/09/2019, 06/23/2015 RSV Immunization Adult Patients (1 - 1-dose 75+ series) 2057 MMR Vaccines Aged Out 09/16/2015 No longer [...] (CMS/HCC V24, CMS/HCC V28) Chronic back pain ZINC Routine 11/25/2024 10:45 AM EDT S/P gastric sleeve procedure Anxiety Class 3 severe obesity with body mass index (BMI) of 40.0 to 44.9 in adult (CMS/HCC V24, CMS/HCC V28) Chronic back pain LIPID PANEL WITH [...] CBC auto differential (11/25/2024 10:45 AM EDT) [facility] WBC 6.6 4.8 - 10.8 K/mcL LAB HEMETOLOGY METHOD 11/25/2024 2:17 PM EDT [facility] RBC 4.20 3.80 - 4.80 M/mcL LAB HEMETOLOGY METHOD 11/25/2024 2:17 PM EDT [facility] Hemoglobin 11.7 11.5 - 16.0 g/dL LAB HEMETOLOGY METHOD 11/[facility]24 [facility] Hematocrit 37.1 35.0 - 47.0 % LAB HEMETOLOGY METHOD 11/25/2024 2:17 PM [facility] MCV 88.1 79.0 - 98.0 FL LAB HEMETOLOGY METHOD 11/25/2024 2:17 PM [facility] MCH 27.8 27.0 - 32.0 pcg LAB HEMETOLOGY METHOD 11/25/2024 2:17 PM [facility] MCHC 31.5(L) 32.0 - 37.0 g/dL LAB HEMETOLOGY METHOD 11/25/2024 2:17 PM [facility] RDW 16.6(H) 11.0 - 15.0 % LAB HEMETOLOGY METHOD 11/25/2024 2:17 PM [facility] Platelets 363 130 - 400 K/mcL LAB HEMETOLOGY METHOD 11/25/2024 2:17 PM [facility] MPV 8.9 7.0 - 11.0 FL LAB HEMETOLOGY METHOD 11/25/2024 2:17 PM [facility] NRBC 0.0 <1.0 % LAB HEMETOLOGY METHOD 11/25/2024 2:17 PM [facility] NRBC Absolute 0.00 <0.10 K/mcL LAB HEMETOLOGY METHOD 11/25/2024 2:17 PM [facility] Neutrophils Relative 52.9 % LAB HEMETOLOGY METHOD 11/25/2024 2:17 PM [facility] Lymphocytes Relative 38.7 % LAB HEMETOLOGY METHOD 11/25/2024 2:17 PM [facility] Monocytes Relative 6.2 % LAB HEMETOLOGY METHOD 11/25/2024 2:17 PM [facility] Eosinophils Relative 1.5 % LAB HEMETOLOGY METHOD 11/25/2024 2:17 PM EDT [facility] Basophils Relative 0.5 % LAB HEMETOLOGY METHOD 11/25/2024 2:17 PM EDT [facility] Immature Granulocytes Relative 0.2 % LAB HEMETOLOGY METHOD 11/25/2024 2:17 PM EDT [facility] Neutrophils Absolute 3.50 1.50 - 7.00 K/mcL LAB HEMETOLOGY METHOD 11/25/2024 2:17 PM EDT [facility] Lymphocytes Absolute 2.56 1.00 - 5.00 K/mcL LAB HEMETOLOGY METHOD 11/25/2024 2:17 PM EDT [facility] Monocytes Absolute 0.41 0.20 - 1.00 K/mcL LAB HEMETOLOGY METHOD 11/25/2024 2:17 PM EDT [facility] Eosinophils Absolute 0.10 0.00 - 0.50 K/mcL LAB HEMETOLOGY METHOD 11/25/2024 2:17 PM EDT [facility] Basophils Absolute 0.03 0.00 - 0.20 K/mcL LAB HEMETOLOGY METHOD 11/25/2024 2:17 PM EDT [facility] Immature Granulocytes Absolute 0.01 0.00 - 0.03 K/mcL LAB HEMETOLOGY METHOD 11/25/2024 2:17 PM EDT [facility] Blood Venous blood specimen / Unknown Venipuncture / Unknown 11/25/2024 10:45 AM EDT 11/25/2024 10:45 AM EDT us Samina Witt MD LAB BLOOD ORDERABLES Fi nal Result [facility] [address] [place] [address], * (ABNORMAL) Iron and TIBC (11/25/2024 10:45 AM EDT) Iron 45 40 - 150 mcg/dL LAB CHEMISTRY METHOD 11/25/2024 3:39 PM EDT [facility] TIBC 381 250 - 450 mcg/dL LAB CHEMISTRY METHOD 11/25/2024 3:39 PM EDT [facility] Iron Saturation 12(L) 15 - 50 % LAB CHEMISTRY METHOD 11/25/2024 3:39 PM EDT [facility] Blood Venous blood specimen / Unknown Venipuncture / Unknown 11/25/2024 10:45 AM EDT 11/25/2024 10:45 AM EDT us Samina Witt MD LAB BLOOD ORDERABLES Fi nal Result Performing Organization Address City/[facility]/ZIP Co de Phone Number [facility] [address] [place] [address], * Zinc (11/25/2024 10:45 AM EDT) Zinc 63 60 - 130 ug/dL 11/27/2024 11:22 AM EDT [facility] Comment: Elevated results may be due to sample collected in a non-certified trace element-free tube. This test was developed and the performance characteristics determined by [facility]. It has not been cleared or approved by the FDA. The laboratory is regulated under CLIA as qualified to perform high-complexity testing. This test is used for patient testing purposes. It should not be regarded as investigational or for research. Test performed at [facility], [address], [place] [address] Dorothy Mac MD, PhD - Lease Out Worker Blood Venous blood specimen / Unknown Venipuncture / Unknown 11/25/2024 10:45 AM EDT 11/25/2024 10:45 AM EDT us Samina Witt MD LAB BLOOD ORDERABLES Fi nal Result [facility] [address] [place] [address] * Selenium serum (11/25/2024 10:45 AM EDT) Selenium 142 63 - 160 mcg/L 11/28/2024 9:10 PM EDT [facility] Comment: This test was developed and its analytical performance characteristics have been determined by [employer] [place], [place]. It has not been cleared or approved by the U.S. Food and Drug Administration. This assay has been validated pursuant to the CLIA regulations and is used for clinical purposes. Test Performed by [email or web address], [email or web address] [facility] [place], [address] [place] [address] Travis Wayne M.D., Ph.D., Director of Laboratories , CLIA [id number] Blood Venous blood specimen / Unknown Venipuncture / Unknown 11/25/2024 10:45 AM EDT 11/25/2024 10:45 AM EDT Samina Witt MD LAB BLOOD ORDERABLES Fi nal Result Performing Organization Address City/[facility]/ZIP Co de Phone Number [facility] [address] [place] [address] * (ABNORMAL) Vitamin D 25 hydroxy (11/25/2024 10:45 AM EDT) Pathologist [facility] Vit D, 25-Hydroxy 25.6(L) 30.0 - 80.0 ng/mL LAB CHEMISTRY METHOD 11/25/2024 4:27 PM EDT [facility] Blood Venous blood specimen / Unknown Venipuncture / Unknown 11/25/2024 10:45 AM EDT 11/25/2024 10:45 AM EDT us Samina Witt MD LAB BLOOD ORDERABLES Fi nal Result Performing Organization Address City/[facility]/ZIP Co de Phone Number [facility]) [facility] [address] [place] [address], * Vitamin B1 (11/25/2024 10:45 AM EDT) Vitamin B1 Whole Blood 39 38 - 122 ug/L 11/28/2024 6:16 AM EDT [facility] Comment: This test was developed and the performance characteristics determined by [facility]. It has not been cleared or approved by the FDA. The laboratory is regulated under CLIA as qualified to perform high-complexity testing. This test is used for patient testing purposes. It should not be regarded as investigational or for research. Test performed at [facility], [address], [place] [address] Dorothy Mac MD, PhD - Lease Out Worker Blood Venous blood specimen / Unknown Venipuncture / Unknown 11/25/2024 10:45 AM EDT 11/25/2024 10:45 AM EDT Samina Witt MD LAB BLOOD ORDERABLES Fi nal Result [facility] [address] [place] [address] * (ABNORMAL) Vitamin B6 (11/25/2024 10:45 AM EDT) Vitamin B6 (Pyridoxine) Level <2(L) 5 - 50 ug/L 12/01/2024 12:50 PM EDT [facility] Comment: This test was developed and the performance characteristics determined by [facility]. It has not been cleared or approved by the FDA. The laboratory is regulated under CLIA as qualified to perform high-complexity testing. This test is used for patient testing purposes. It should not be regarded as investigational or for research. Test performed at [facility], [address], [place] [address] Dorothy Mac MD, PhD - Lease Out Worker Blood Venous blood specimen / Unknown Venipuncture / Unknown 11/25/2024 10:45 AM EDT 11/25/2024 10:45 AM EDT us Samina Witt MD LAB BLOOD ORDERABLES Fi nal Result [facility] [place] [address] * Vitamin B12 (11/25/2024 10:45 AM EDT) Pathologist [facility] Vitamin B-12 291 250 - 900 pcg/mL LAB CHEMISTRY METHOD 11/25/2024 3:39 PM EDT [facility] Blood Venous blood specimen / Unknown Venipuncture / Unknown 11/25/2024 10:45 AM EDT 11/25/2024 10:45 AM EDT us Samina Witt MD LAB BLOOD ORDERABLES Fi nal Result Performing Organization Address [facility]/ZIP Co de Phone Number [facility] [address] [place] [address], * Comprehensive metabolic panel (11/25/2024 10:45 AM EDT) [facility] Sodium 140 133 - 145 mmol/L LAB CHEMISTRY METHOD 11/25/2024 3:39 PM [facility] Potassium 3.5 3.5 - 5.5 mmol/L LAB CHEMISTRY METHOD 11/25/2024 3:39 PM T [facility] Chloride 106 96 - 110 mmol/L LAB CHEMISTRY METHOD 11/25/2024 3:39 PM [facility] CO2 28 21 - 32 mmol/L LAB CHEMISTRY METHOD 11/25/2024 3:39 PM T [facility] Anion Gap 6 3 - 11 LAB CHEMISTRY METHOD 11/25/2024 3:39 PM [facility] Glucose 95 70 - 100 mg/dL LAB CHEMISTRY METHOD 11/25/2024 3:39 PM [facility] BUN 13 5 - 25 mg/dL LAB CHEMISTRY METHOD 11/25/2024 3:39 PM [facility] Creatinine 0.73 0.50 - 1.10 mg/dL LAB CHEMISTRY METHOD 11/25/2024 3:39 PM [facility] eGFR 105 >=60 mL/min/1. 73m2 LAB CHEMISTRY METHOD 11/25/2024 3:39 PM [facility] Comment:Calculation based on the Chronic Kidney Disease Epidemiology Collaboration (CKD-EPI) equation refit without adjustment for race. BUN/Creatinine Ratio 17.8 LAB CHEMISTRY METHOD 11/25/2024 3:39 PM [facility] Calcium 9.6 8.5 - 10.5 mg/dL LAB CHEMISTRY METHOD 11/25/2024 3:39 PM [facility] AST (SGOT) 11 10 - 42 unit/L LAB CHEMISTRY METHOD 11/25/2024 3:39 PM [facility] ALT (SGPT) 20 10 - 60 unit/L LAB CHEMISTRY METHOD 11/25/2024 3:39 PM [facility] Alkaline Phosphatase 70 42 - 121 unit/L LAB CHEMISTRY METHOD 11/25/2024 3:39 PM [facility] Total Protein 7.5 6.0 - 8.0 g/dL LAB CHEMISTRY METHOD 11/25/2024 3:39 PM [facility] Albumin 3.9 3.2 - 5.0 g/dL LAB CHEMISTRY METHOD 11/25/2024 3:39 PM [facility] Total Bilirubin 0.5 0.0 - 1.4 mg/dL LAB CHEMISTRY METHOD 11/25/2024 3:39 PM [facility] Blood Venous blood specimen / Unknown Venipuncture / Unknown 11/25/2024 10:45 AM EDT 11/25/2024 10:45 AM EDT us Samina Witt MD LAB BLOOD ORDERABLES Fi nal Result [facility] [address] [place] [address], [place] [phone] * Lipid panel with reflex to direct LDL (05/12/2024 7:50 AM EST) Cholesterol 141 0 - 200 mg/dL LAB CHEMISTRY METHOD 05/12/2024 10:34 AM EST [facility] Triglycerides 70 0 - 150 mg/dL LAB CHEMISTRY METHOD 05/12/2024 10:34 AM EST [facility] HDL 42 >=40 mg/dL LAB CHEMISTRY METHOD 05/12/2024 10:34 AM EST [facility] LDL Calculated 85 0 - 100 mg/dL LAB CHEMISTRY METHOD 05/12/2024 10:34 AM EST [facility] VLDL Cholesterol Laz 14 mg/dL LAB CHEMISTRY METHOD 05/12/2024 10:34 AM EST [facility] Non HDL Chol. (LDL+VLDL) 99 <145 mg/dL LAB CHEMISTRY METHOD 05/12/2024 10:34 AM EST [facility] Chol/HDL Ratio 3.4 0.0 - 4.4 LAB CHEMISTRY METHOD 05/12/2024 10:34 AM EST [facility] Blood Venous blood specimen / Unknown Venipuncture / Unknown 05/12/2024 7:50 AM EST 05/12/2024 7:50 AM EST Samina Witt MD LAB BLOOD ORDERABLES Fi nal Result Performing Organization Address [facility]/ZIP Co de Phone Number [facility] [address] [place] [address], [place] [phone] from Last 3 Months or Most Recently Relevant to Health Maintenance Insurance [place] Advance Directives * Full Code - Default [...] currently active code status orders. Care Teams District Court Justice Relationship Specialty Start Date End Date Gabrielle Shea NP [address] [place] [phone] PCP - General 12/28/22
--- OUTSIDE RECORDS SUMMARY | 2025-01-16 08:52 | XMS_ITS | Encounter Summary ---
Author Organization [employer] Address [address] [facility] [address] [place] [address] Care Team Providers Care Marketing Agent Name Role Phone Gabrielle Shea Primary Care Provider [phone] Reason for Visit * Reason Comments Med Refill Encounter Details Date Type Department Care Team ([facility] st Contact Info) Description 10/25/2023 Refill [facility] [address] [place], [place] [phone] Gabrielle Shea ANP [address] [place] [address] Migraine without aura and without status migrainosus, [...] documented as of this encounter Care Teams Marketing Agent Relationship Specialty Start Date End Date Gabrielle Shea ANP [address] [place] [address] PCP - General Family Medicine 12/20/20 documented as of this encounter
== END 2025-01-16 08:57 | disposition home or self-care (01) ==
LOC: HO.HOS 08:22
PROVIDERS: PCP Nurse Practitioner Primary Care; Visit Provider Physical Medicine & Rehabilitation
DX: M53.3 Sacrococcygeal disorders, not elsewhere classified (principal)
CPT/HCPCS: 99214

== ENCOUNTER → 2025-01-16 08:21 | Outpatient (BNVA) | payer MEDICAID, SELFPAY | PROVIDERS: PCP Nurse Practitioner Primary Care; Visit Provider Physical Medicine & Rehabilitation | DX: M53.3 Sacrococcygeal disorders, not elsewhere classified (principal) | CPT/HCPCS: 99212 ==

== ENCOUNTER 2025-01-21 10:35 | Outpatient (REF) | payer MEDICAID, SELFPAY ==
--- NOTE | ~2025-01-21 | XR_ITS ---
CLINICAL HISTORY: M25.562 - Pain in left knee 2 x-rays of the left knee. One x-ray of both knees standing. Comparison: None provided Findings: No fractures or dislocations. Mild bilateral medial compartment joint space narrowing. Mild patellofemoral compartment joint space narrowing on the left. Trace left knee joint effusion. No radiopaque foreign body. IMPRESSION: 1. Mild osteoarthritis of the left patellofemoral compartment and medial compartment. 2. Trace left knee joint effusion. This document has been electronically signed by: Brenton Patterson DO on 01/22/2025 14:09:30
--- NOTE | ~2025-01-21 | XR_ITS ---
CLINICAL HISTORY: M25.572 - Pain in left ankle and joints of left foot 3 view left ankle Comparison: CR/SR - XR FOOT 3 OR MORE VIEWS LEFT - 10/18/22 11:06 EDT Findings: Bones intact. No dislocations. No significant loss of joint space, osteophytes, or erosions. No ankle effusion. No radiopaque foreign body. Small plantar surface calcaneal spur. Achilles calcaneal enthesophyte. IMPRESSION: 1. No acute findings. This document has been electronically signed by: Brenton Patterson DO on 01/22/2025 14:03:58
--- OUTSIDE RECORDS SUMMARY | 2025-01-21 13:11 | XMS_ITS | Encounter Summary ---
Author Organization [employer] Address [address] [place] [address] [address] [address] Care Team Providers Care Litigation Attorney Associate Name Role Phone Gabrielle Shea Primary Care Provider [phone] Encounter Details Date Type Department Care Team (Late st Contact Info) Description 06/27/2022 Orders Only [facility] [address] [place], [place] [phone] Gabrielle Shea ANP [address] [place] [address] Urinary frequency (Primary Dx) Social History Tobacco [...] Primary documented in this encounter Care Teams Litigation Attorney Associate Relationship Specialty Start Date End Date Gabrielle Shea ANP [address] [place] [address] PCP - General Family Medicine 12/20/20 documented as of this encounter
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
--- OUTSIDE RECORDS SUMMARY | 2025-01-21 13:11 | XMS_ITS | Encounter Summary ---
Author Organization [employer] Address [address] [place] [address] [place] [address] Care Team Providers Care Vp Customer Service Name Role Phone Gabrielle Shea Primary Care Provider [phone] Reason for Visit * Reason Comments Med Refill Encounter Details Date Type Department Care Team (Late st Contact Info) Description 11/28/2022 Refill [facility] MEDICINE [address] [place] [address] Gabrielle Shea ANP [address] [place] [address] Chronic bilateral low back pain, unspecified whether [...] present documented in this encounter Care Teams Vp Customer Service Relationship Specialty Start Date End Date Gabrielle Shea ANP [address] [place] [address] PCP - General Family Medicine 12/20/20 documented as of this encounter
--- OUTSIDE RECORDS SUMMARY | 2025-01-21 13:11 | XMS_ITS | Encounter Summary ---
Author Organization [employer] Address [address] [facility] [address] [place] [address] Care Team Providers Care Supervisor Cemetery Workers Name Role Phone Gabrielle Shea Primary Care Provider [phone] Reason for Visit * Reason Comments Med Refill Encounter Details Date Type Department Care Team ([facility] st Contact Info) Description 01/23/2024 Refill [facility] MEDICINE [address] [place], [place] [phone] Gabrielle Shea ANP [address] [place] [address] Migraine without aura and without status migrainosus, [...] documented as of this encounter Care Teams Supervisor Cemetery Workers Relationship Specialty Start Date End Date Gabrielle Shea ANP [address] [place] [address] PCP - General Family Medicine 12/20/20 documented as of this encounter
--- OUTSIDE RECORDS SUMMARY | 2025-01-21 13:11 | XMS_ITS | Clinical Summary ---
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 It is not the complete legal health record.[facility]
--- OUTSIDE RECORDS SUMMARY | 2025-01-21 13:11 | XMS_ITS | Encounter Summary ---
Author Organization [employer] Address [address] [facility] [address] [place] [address] Care Team Providers Care Certified Surgical First Assistant Name Role Phone Gabrielle Shea Primary Care Provider [phone] Reason for Visit * Reason Comments Med Refill Encounter Details Date Type Department Care Team ([facility] st Contact Info) Description 10/25/2023 Refill [facility] MEDICINE [address] [place], [place] [phone] Gabrielle Shea ANP [address] [place] [address] Migraine without aura and without status migrainosus, [...] documented as of this encounter Care Teams Certified Surgical First Assistant Relationship Specialty Start Date End Date Gabrielle Shea ANP [address] [place] [address] PCP - General Family Medicine 12/20/20 documented as of this encounter
--- OUTSIDE RECORDS SUMMARY | 2025-01-21 13:11 | XMS_ITS | Encounter Summary ---
Author Organization [employer] Address [address] [place] [address] [address] [address] Care Team Providers Care Programmer Analyst Name Role Phone Gabrielle Shea Primary Care Provider [phone] Reason for Visit * Reason Onset Date Comments Med Refill 06/25/2023 Encounter Details Date Type Department Care Team (Late st Contact Info) Description 06/25/2023 Refill [facility] MEDICINE [address] [place], [place] [phone] Gabrielle Shea ANP [address] [place] [address] Social History Tobacco Use Types Packs/Day Years [...] on filedocumented in this encounter Care Teams Programmer Analyst Relationship Specialty Start Date End Date Gabrielle Shea ANP [address] [place] [address] PCP - General Family Medicine 12/20/20 documented as of this encounter
--- OUTSIDE RECORDS SUMMARY | 2025-01-21 13:11 | XMS_ITS | Encounter Summary ---
Author Organization [employer] Address [address] [facility] 7[address] [place] [address] Care Team Providers Care Automotive Manufacturer Name Role Phone Monse Gabrielle WHITE Primary Care Provider [phone] Reason for Visit * Reason Onset Date Comments Med Refill 07/31/2023 Encounter Details Date Type Department Care Team (Late st Contact Info) Description 07/31/[address] [facility] [address] [place] [address] Lori García MD [address] [place] [address] Neck pain; Upper back pain; Acute bilateral [...] documented as of this encounter Care Teams Automotive Manufacturer Relationship Specialty Start Date End Date Gabrielle Shea ANP [address] [place] [address] PCP - General Family Medicine 12/20/20 documented as of this encounter
--- OUTSIDE RECORDS SUMMARY | 2025-01-21 13:11 | XMS_ITS | Encounter Summary ---
Author Organization [employer] Address [address] [place] [address] [address] [address] Care Team Providers Care Instructor Ballroom Dancing Name Role Phone Monse Gabrielle WHITE Primary Care Provider [phone] Reason for Visit * Reason Onset Date Comments Med Refill 06/25/2023 Encounter Details Date Type Department Care Team (Late st Contact Info) Description 06/25/2023 Refill [facility] MEDICINE [address] [place], [place] [phone] Jessie Guzmán MD [address] [place] [address] Social History Tobacco Use Types Packs/Day Years [...] Nearly every day 06/26/2023 3:16 PM Keturah Gonzalse Trouble falling or staying asleep, or sleeping [...] on filedocumented in this encounter Care Teams Instructor Ballroom Dancing Relationship Specialty Start Date End Date Gabrielle Shea ANP [address] [place] [address] PCP - General Family Medicine 12/20/20 documented as of this encounter
--- OUTSIDE RECORDS SUMMARY | 2025-01-21 13:11 | XMS_ITS | Encounter Summary ---
Author Organization [employer] Address [address] [place] [address] [address], [place] [address] Care Team Providers Care Security Systems Specialist Name Role Phone Gabrielle Shea Primary Care Provider [phone] Reason for Visit * Reason Comments Med Refill Encounter Details Date Type Department Care Team (Late st Contact Info) Description 11/30/2022 Refill [facility] MEDICINE [address] [place] [address] Gabrielle Shea ANP [address] [place] [address] Chronic bilateral low back pain, unspecified whether [...] documented in this encounter Care Teams Security Systems Specialist Relationship Specialty Start Date End Date Gabrielle Shea ANP [address] [place] [address] PCP - General Family Medicine 12/20/20 documented as of this encounter
--- OUTSIDE RECORDS SUMMARY | 2025-01-21 13:11 | XMS_ITS | Encounter Summary ---
Author Organization [facility] Address [address] [facility] [address] [place] [address] Phone Care Team Providers Care Boat Outboard Engine Mechanic Name Role Phone Gabrielle Shea Primary Care Provider [phone] Reason for Referral * Consultation (Within 1 month) - Closed Specialty Diagnoses / Procedures Referred By Contac t Referred To Contact Rheumatology Gabrielle Shea ANP Phone: tel: fax: [facility] [address] [place] [address] Phone: tel: Referral ID Status Reason Start Date Expiration Date Visits Re quested Visits Authorized [id number] Closed 07/08/2019 07/07/2020 6 0 Encounter Details Date Type Department Care Team (Late st Contact Info) Description 07/08/2019 Transcribe Orders [facility] Rhe[facility] [place] [address] [facility]th [address], [address] [place] [address] Gabrielle Shea ANP [address] [place] [address] Social History Tobacco Use Types Packs/Day Years [...] Associated Diagnoses Order Schedule Ambulatory referral to [facility] Rheumatology Outpatient Referral Routine Ordered: 07/08/2019 documented as of this encounter Visit Diagnoses Not on filedocumented in this encounter Care Teams Boat Outboard Engine Mechanic Relationship Specialty Start Date End Date Gabrielle Shea ANP [address] [place] [address] PCP - General Family Medicine 05/28/19 documented as of this encounter Additional Source Comments The information contained in this document represents components of the legal health record. It is not the complete legal health record.[facility]
--- OUTSIDE RECORDS SUMMARY | 2025-01-21 13:11 | XMS_ITS | Encounter Summary ---
Author Organization [employer] Address [address] [place] [address] [address] [address] Care Team Providers Care Masking Machine Operator Name Role Phone Monse Gabrielle WHITE Primary Care Provider [phone] Reason for Visit * Reason Onset Date Comments Med Refill 07/31/2023 Encounter Details Date Type Department Care Team (Late st Contact Info) Description 07/31/2023 Refill [facility] MEDICINE [address] [place], [place] [phone] Sheryl Diana MD [address] [place], [place] [phone] Migraine without aura and without status migrainosus, [...] documented as of this encounter Care Teams Masking Machine Operator Relationship Specialty Start Date End Date Gabrielle Shea ANP [address] [place] [address] PCP - General Family Medicine 12/20/20 documented as of this encounter
--- OUTSIDE RECORDS SUMMARY | 2025-01-21 13:11 | XMS_ITS | Encounter Summary ---
Author Organization [employer] Address [address] [place] [address] [address] [address] Care Team Providers Care Transport Aircrewman Name Role Phone Monse Gabrielle WHITE Primary Care Provider [phone] Reason for Visit * Reason Onset Date Comments Med Refill 07/31/2023 Encounter Details Date Type Department Care Team (Late st Contact Info) Description 07/31/2023 Refill [facility] MEDICINE [address] [place], [place] [phone] Jessie Guzmán MD [address] [place] [address] Social History Tobacco Use Types Packs/Day Years [...] documented as of this encounter Care Teams Transport Aircrewman Relationship Specialty Start Date End Date Gabrielle Shea ANP [address] [place] [address] PCP - General Family Medicine 12/20/20 documented as of this encounter
== END 2025-01-21 10:36 | disposition home or self-care (01) ==
LOC: HO.HOSX 10:35
DX: M76.62 Achilles tendinitis, left leg (principal)
CPT/HCPCS: 73562; 73610; 99212

== ENCOUNTER → 2025-01-21 11:29 | Outpatient (BNV) | payer MEDICAID, SELFPAY | PROVIDERS: Visit Provider Family Medicine | DX: M17.12 Unilateral primary osteoarthritis, left knee (principal); M25.572 Pain in left ankle and joints of left foot | CPT/HCPCS: 73562; 73610 ==

== ENCOUNTER 2025-01-21 11:32 | Outpatient (AMB) | payer MEDICAID, SELFPAY ==
--- NOTE | 2025-01-21 11:52 | MHC.OFFVIS ---
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 She reports she was doing exercises on a stepper and after a few sets her legs suddenly gave out causing her to fall. She thinks her legs were just tired causing her fall. Patient states when she ambulates she is limping due to a stabbing sensation in the medial aspect of the left ankle. She also says she feels a burning pain below the knee cap. Denies numbness and tingling. Yesterday she stepped incorrectly while ambulating and re-injuried her left ankle. 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 She reports she was doing exercises on a stepper and after a few sets her legs suddenly gave out causing her to fall. She thinks her legs were just tired causing her fall. Patient states when she ambulates she is limping due to a stabbing sensation in the medial aspect of the left ankle. She also says she feels a burning pain below the knee cap. Denies numbness and tingling. Yesterday she stepped incorrectly while ambulating and re-injuried her left ankle. Pain is primarily located in the posterior aspect of the left ankle and foot. PFSH Medical History Palpitations Sacroiliac joint pain Anemia Surgical History S/P placement of nerve stimulator History of cholecystectomy H/O tubal ligation Family History Mother Thyroid disease HTN (hypertension) Diabetes Depression Lupus Osteoarthritis Father HTN (hypertension) Pancreatic cancer Diabetes Stroke Social History Household Members Other:: mother in law Are you a primary hearing care practitioner to a significant other at home: No Do you presently have visiting nurse or other home services: No Alcohol intake: never Comment: pt states her baseline is a 9 consistently Patient Tobacco Use Status: Never used Tobacco 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 Review of Systems Const All systems reviewed & are unremarkable except as noted in HPI and below Physical Exam Vital Signs: BMI result Body Mass Index 36.9 Extrem Other: Patient's left foot and ankle normal to inspection No erythema, ecchymosis, edema noted No lacerations, abrasions, open areas No evidence of infection Patient reports tenderness to palpation of the distal insertion of the Achilles tendon of the left leg No tenderness to palpation of medial or lateral malleoli, anterior foot, or distal tibia and fibula Range of motion of the left foot and ankle full and intact, but patient does report pain with dorsiflexion in the posterior aspect of the Achilles tendon Negative Ramey's test, Achilles tendon intact to palpation Distal sensation intact Capillary refill brisk Assessment & Plan Assessment & Plan (1) Left Achilles tendinitis: Code(s): M76.62 - Achilles tendinitis, left leg Category: Medical Plan 1. Achilles tendinitis of left ankle Status post fall Patient is educated about this condition Patient is educated about the typical recovery course At this time, patient is provided with a short walking boot with wedge insert in order to take stress off of the Achilles tendon while ambulatory Patient may remove the walking boot to work on range of motion of the left foot and ankle and over short walking distances Should remove while at rest Patient understands this in his amenable to this plan Follow-up in 1 month for reassessment, sooner with any acute concerns Orders: Orders XR ankle LT min 3V 01/21/25 M25.572 - Pain in left ankle and joints of left foot XR knee LT 3V 01/21/25 M25.562 - Pain in left knee Coding Level of Care Code Est Pt Level 3 (23578) Diagnoses Left Achilles tendinitis M76.62
[2025-01-21 11:55] VITALS: BMI 36.9
--- OUTSIDE RECORDS SUMMARY | 2025-01-21 14:39 | XMS_ITS | Clinical Summary ---
Author Organization [address] [facility] Address [address] [place] [address] Phone Care Team Providers Care Prompt Care Rn Name Role Phone Gabrielle Shea NP Primary Care Provider [phone] Allergies Active Allergy Reactions Criticality Noted Date [...] obesity with BMI of 4 0.0-44.9, adult ([facility] V24, [facility] V28) 06/04/2024 Class 3 severe obesity with body mass index (BMI) of 40.0 to 44.9 in adult ([facility] V24, [facility] V28) 02/07/2024 Chronic back pain 05/30/2023 Anxiety 05/30/2023 Urticaria 05/30/2023 Angioedema 05/30/2023 Resolved Problems Problem Noted Date Diagnosed Date Resolved Date Abdominal pain 08/31/2024 09/01/2024 Surgical History Surgery Date Site/Laterality Comments OTHER [...] for your loved ones. For example, child and family services worker or elderly care for an older adult? [...] Care Team (Late st Contact Info) Description 01/30/2025 8:30 AM EDT Office Visit Bariatric Surgery - [address] [place] [address] Samina Witt MD [address] [place] [phone] Health Maintenance Due Date Last Done Comments [...] Hepatitis A Vaccines Aged Out 07/09/2019, 12/14/19 No longer eligible based on patient's age [...] (BMI) of 40.0 to 44.9 in adult ([facility] V24, [facility] V28) Chronic back pain LIPID PANEL WITH REFLEX TO DIRECT LDL Routine 05/12/2024 7:50 AM EST Class 3 severe obesity with body mass index (BMI) of 45.0 to 49.9 in adult, unspecified obesity type, unspecified whether serious comorbidity present (CMS/HCC V24, [facility] V28) from Last 3 Months or Most Recently Relevant to Health Maintenance Results * (ABNORMAL) CBC auto differential (11/25/2024 10:45 AM EDT) [facility] WBC 6.6 4.8 - 10.8 K/mcL LAB HEMETOLOGY METHOD 11/25/2024 2:17 PM [facility] RBC 4.20 3.80 - 4.80 M/mcL LAB HEMETOLOGY METHOD 11/25/2024 2:17 PM [facility] Hemoglobin 11.7 11.5 - 16.0 g/dL LAB HEMETOLOGY METHOD 11/25/2024 2:17 PM [facility] Hematocrit 37.1 35.0 - 47.0 % LAB HEMETOLOGY METHOD 11/25/2024 2:17 PM [facility] MCV 88.1 79.0 - 98.0 FL LAB HEMETOLOGY METHOD 11/25/2024 2:17 PM [facility] MCH 27.8 27.0 - 32.0 pcg LAB HEMETOLOGY METHOD 11/25/2024 2:17 PM [facility] MCHC 31.5(L) 32.0 - 37.0 g/dL LAB HEMETOLOGY METHOD 11/25/2024 2:17 PM [facility] RDW 16.6(H) 11.0 - 15.0 % LAB HEMETOLOGY METHOD 11/25/2024 2:17 PM [facility] Platelets 363 130 - 400 K/mcL LAB HEMETOLOGY METHOD 11/25/2024 2:17 PM [facility] MPV 8.9 7.0 - 11.0 FL LAB HEMETOLOGY METHOD 11/25/2024 2:17 PM [facility] NRBC 0.0 <1.0 % LAB HEMETOLOGY METHOD 11/25/2024 2:17 PM [facility] NRBC Absolute 0.00 <0.10 K/mcL LAB HEMETOLOGY METHOD 11/25/2024 2:17 PM [facility] Neutrophils Relative 52.9 % LAB HEMETOLOGY METHOD 11/25/2024 2:17 PM [facility] Lymphocytes Relative 38.7 % LAB HEMETOLOGY METHOD 11/25/2024 2:17 PM [facility] Monocytes Relative 6.2 % LAB HEMETOLOGY METHOD 11/25/2024 2:17 PM [facility] Eosinophils Relative 1.5 % LAB HEMETOLOGY METHOD 11/25/2024 2:17 PM [facility] Basophils Relative 0.5 % LAB HEMETOLOGY METHOD 11/25/2024 2:17 PM [facility] Immature Granulocytes Relative 0.2 % LAB HEMETOLOGY METHOD 11/25/2024 2:17 PM [facility] Neutrophils Absolute 3.50 1.50 - 7.00 K/mcL LAB HEMETOLOGY METHOD 11/25/2024 2:17 PM [facility] Lymphocytes Absolute 2.56 1.00 - 5.00 K/mcL LAB HEMETOLOGY METHOD 11/25/2024 2:17 PM [facility] Monocytes Absolute 0.41 0.20 - 1.00 K/mcL LAB HEMETOLOGY METHOD 11/25/2024 2:17 PM EDT [facility] Eosinophils Absolute 0.10 0.00 - 0.50 K/[facility] LAB HEMETOLOGY METHOD 11/25/2024 2:17 PM EDT [facility] Basophils Absolute 0.03 0.00 - 0.20 K/[facility] LAB HEMETOLOGY METHOD 11/25/2024 2:17 PM EDT [facility] Immature Granulocytes Absolute 0.01 0.00 - 0.03 K/[facility] LAB HEMETOLOGY METHOD 11/25/2024 2:17 PM EDT [facility] Blood Venous blood specimen / Unknown Venipuncture / Unknown 11/25/2024 10:45 AM EDT 11/25/2024 10:45 AM EDT Samina Witt MD LAB BLOOD ORDERABLES Fi nal Result [facility] [address] [place] [address], [place] [phone] * (ABNORMAL) Iron and TIBC (11/25/2024 10:45 AM EDT) Iron 45 40 - 150 mcg/dL LAB CHEMISTRY METHOD 11/25/2024 3:39 PM EDT [facility] TIBC 381 250 - 450 mcg/dL LAB CHEMISTRY METHOD 11/25/2024 3:39 PM EDT [facility] Iron Saturation 12(L) 15 - 50 % LAB CHEMISTRY METHOD 11/25/2024 3:39 PM EDT [facility] Blood Venous blood specimen / Unknown Venipuncture / Unknown 11/25/2024 10:45 AM EDT 11/25/2024 10:45 AM EDT Samina Witt MD LAB BLOOD ORDERABLES Fi nal Result [facility] ([facility]) [facility] [address] [place] [address], * Zinc (11/25/2024 10:45 AM EDT) Zinc 63 60 - 130 ug/dL 11/27/2024 11:22 AM EDT [facility] Comment: Elevated results may be due to sample collected in a non-certified trace element-free tube. This test was developed and the performance characteristics determined by [facility]. It has not been cleared or approved by the FDA. The laboratory is regulated under CLIA as qualified to perform high-complexity testing. This test is used for patient testing purposes. It should not be regarded as investigational or for research. Test performed at [facility], [address] , [place] [address] Dorothy Mac MD, PhD - Blue Print Control Clerk Blood Venous blood specimen / Unknown Venipuncture / Unknown 11/25/2024 10:45 AM EDT 11/25/2024 10:45 AM EDT Samina Witt MD LAB BLOOD ORDERABLES Fi nal Result Performing Organization Address [facility]/ZIP Co de Phone Number [facility] [address] [place] [address] * Selenium serum (11/25/2024 10:45 AM EDT) Selenium 142 63 - 160 mcg/L 11/28/2024 9:10 PM EDT [facility] Comment: This test was developed and its analytical performance characteristics have been determined by [facility] [place], [place]. It has not been cleared or approved by the U.S. Food and Drug Administration. This assay has been validated pursuant to the CLIA regulations and is used for clinical purposes. Test Performed by [facility], [facility], [address] [place], [place] Travis Wayne M.D., Ph.D., Director of Laboratories , CLIA [id number] Blood Venous blood specimen / Unknown Venipuncture / Unknown 11/25/2024 10:45 AM EDT 11/25/2024 10:45 AM EDT us Samina Witt MD LAB BLOOD ORDERABLES Fi nal Result [facility] [address] [place] [address] * (ABNORMAL) Vitamin D 25 hydroxy (11/25/2024 10:45 AM EDT) Vit D, 25-Hydroxy 25.6(L) 30.0 - 80.0 ng/mL LAB CHEMISTRY METHOD 11/25/2024 4:27 PM EDT [facility] Blood Venous blood specimen / Unknown Venipuncture / Unknown 11/25/2024 10:45 AM EDT 11/25/2024 10:45 AM EDT us Samina Witt MD LAB BLOOD ORDERABLES Fi nal Result Performing Organization Address City/[facility] Co de Phone Number [facility] [address] [place] [address], * Vitamin B1 (11/25/2024 10:45 AM EDT) Vitamin B1 Whole Blood 39 38 - 122 ug/L 11/28/2024 6:16 AM EDT [facility] Comment: This test was developed and the performance characteristics determined by [facility]. It has not been cleared or approved by the FDA. The laboratory is regulated under CLIA as qualified to perform high-complexity testing. This test is used for patient testing purposes. It should not be regarded as investigational or for research. Test performed at [facility], [address] , [place] [address] Dorothy Mac MD, PhD - Blue Print Control Clerk Blood Venous blood specimen / Unknown Venipuncture / Unknown 11/25/2024 10:45 AM EDT 11/25/2024 10:45 AM EDT us Samina Witt MD LAB BLOOD ORDERABLES Fi nal Result Performing Organization Address City/[facility]/ZIP Co de Phone Number [facility] [address] [place] [address] * (ABNORMAL) Vitamin B6 (11/25/2024 10:45 AM EDT) Vitamin B6 (Pyridoxine) Level <2(L) 5 - 50 ug/L 12/01/2024 12:50 PM EDT [facility] Comment: This test was developed and the performance characteristics determined by [facility]. It has not been cleared or approved by the FDA. The laboratory is regulated under CLIA as qualified to perform high-complexity testing. This test is used for patient testing purposes. It should not be regarded as investigational or for research. Test performed at [facility], [address] [place] [address] Dorothy Mac MD, PhD - Blue Print Control Clerk Blood Venous blood specimen / Unknown Venipuncture / Unknown 11/25/2024 10:45 AM EDT 11/25/2024 10:45 AM EDT us Samina Witt MD LAB BLOOD ORDERABLES Fi nal Result [facility] [address] [place] [address] * Vitamin B12 (11/25/2024 10:45 AM EDT) Vitamin B-12 291 250 - 900 pcg/mL LAB CHEMISTRY METHOD 11/25/2024 3:39 PM EDT [facility] Blood Venous blood specimen / Unknown Venipuncture / Unknown 11/25/2024 10:45 AM EDT 11/25/2024 10:45 AM EDT us Samina Witt MD LAB BLOOD ORDERABLES Fi nal Result [facility] [address] [place] [address], * Comprehensive metabolic panel (11/25/2024 10:45 AM EDT) Sodium 140 133 - 145 mmol/L LAB CHEMISTRY METHOD 11/25/2024 3:39 PM EDT [facility] Potassium 3.5 3.5 - 5.5 mmol/L LAB CHEMISTRY METHOD 11/25/2024 3:39 PM [facility] Chloride 106 96 - 110 mmol/L LAB CHEMISTRY METHOD 11/25/2024 3:39 PM [facility] CO2 28 21 - 32 mmol/L LAB CHEMISTRY METHOD 11/25/2024 3:39 PM [facility] Anion Gap 6 3 - 11 LAB CHEMISTRY METHOD 11/25/2024 3:39 PM [facility] Glucose 95 70 - 100 mg/dL LAB CHEMISTRY METHOD 11/25/2024 3:39 PM [facility] BUN 13 5 - 25 mg/dL LAB CHEMISTRY METHOD 11/25/2024 3:39 PM [facility] Creatinine 0.73 0.50 - 1.10 mg/dL LAB CHEMISTRY METHOD 11/25/2024 3:39 PM [facility] eGFR 105 >=60 mL/min/1. 73m2 LAB CHEMISTRY METHOD 11/25/2024 3:39 PM [facility] Comment:Calculation based on the Chronic Kidney Disease Epidemiology Collaboration (CKD-EPI) equation refit without adjustment for race. BUN/Creatinine Ratio 17.8 LAB CHEMISTRY METHOD 11/25/2024 3:39 PM [facility] Calcium 9.6 8.5 - 10.5 mg/dL LAB CHEMISTRY METHOD 11/25/2024 3:39 PM EDT [facility] AST (SGOT) 11 10 - 42 unit/L LAB CHEMISTRY METHOD 11/25/2024 3:39 PM [facility] ALT (SGPT) 20 10 - 60 unit/L LAB CHEMISTRY METHOD 11/25/2024 3:39 PM EDT [facility] Alkaline Phosphatase 70 42 - 121 unit/L LAB CHEMISTRY METHOD 11/25/2024 3:39 PM EDT [facility] Total Protein 7.5 6.0 - 8.0 g/dL LAB CHEMISTRY METHOD 11/25/2024 3:39 PM T [facility] Albumin 3.9 3.2 - 5.0 g/dL LAB CHEMISTRY METHOD 11/25/2024 3:39 PM [facility] Total Bilirubin 0.5 0.0 - 1.4 mg/dL LAB CHEMISTRY METHOD 11/25/2024 3:39 PM T [facility] Blood Venous blood specimen / Unknown Venipuncture / Unknown 11/25/2024 10:45 AM EDT 11/25/2024 10:45 AM EDT us Samina Witt MD LAB BLOOD ORDERABLES Fi nal Result [facility] [address] [place] [address], * Lipid panel with reflex to direct LDL (05/12/2024 7:50 AM EST) Cholesterol 141 0 - 200 mg/dL LAB CHEMISTRY METHOD 05/12/2024 10:34 AM EST [facility] Triglycerides 70 0 - 150 mg/dL LAB CHEMISTRY METHOD 05/12/2024 10:34 AM EST [facility] HDL 42 >=40 mg/dL LAB CHEMISTRY METHOD 05/12/2024 10:34 AM EST [facility] LDL Calculated 85 0 - 100 mg/dL LAB CHEMISTRY METHOD 05/12/2024 10:34 AM EST [facility] VLDL Cholesterol Laz 14 mg/dL LAB CHEMISTRY METHOD 05/12/2024 10:34 AM EST [facility] Non HDL Chol. (LDL+VLDL) 99 <145 mg/dL LAB CHEMISTRY METHOD 05/12/2024 10:34 AM EST [facility] Chol/HDL Ratio 3.4 0.0 - 4.4 LAB CHEMISTRY METHOD 05/12/2024 10:34 AM EST [facility] Blood Venous blood specimen / Unknown Venipuncture / Unknown 05/12/2024 7:50 AM EST 05/12/2024 7:50 AM EST us Samina Witt MD LAB BLOOD ORDERABLES nal Result [facility] [address] [place] [address], from Last 3 Months or Most Recently [...] currently active code status orders. Care Teams Prompt Care Rn Relationship Specialty Start Date End Date Gabrielle Shea NP [address] [place] [phone] PCP - General 12/28/22
== END 2025-01-21 12:36 | disposition home or self-care (01) ==
LOC: HO.HOS 11:33
PROVIDERS: PCP Nurse Practitioner Primary Care
DX: M76.62 Achilles tendinitis, left leg (principal)
CPT/HCPCS: 99213

== ENCOUNTER 2025-02-17 17:21 | Outpatient (REF) | payer MEDICAID, SELFPAY ==
--- OUTSIDE RECORDS SUMMARY | 2025-02-17 09:00 | XMS_ITS | Encounter Summary ---
Author Organization [employer] Address [address] [facility] [address] [place] [address] Care Team Providers Care Supervisor Major Appliance Assembly Name Role Phone Monse Gabrielle WHITE Primary Care Provider [phone] Encounter Details Date Type Department Care Team ([facility] st Contact Info) Description 02/17/2025 9:00 AM EDT Office Visit [facility] [address] [place], [place] [phone] Pawel Hernandez MD [address] [place] [address] Cystitis (Primary Dx) Social History Tobacco Use Types [...] your housing situation today? I have aminata krens 05/21/[address] you li [...] AM EDT documented as of this encounter Last Filed Vital Signs Vital Sign Reading Time Taken Comments Blood Pressure 144/106 02/17/2025 9:12 AM EDT Pulse 58 02/17/2025 9:12 AM EDT Temperature 36.6 C (97.8 F) 02/17/2025 9:12 AM EDT Respiratory Rate 20 02/17/2025 9:12 AM EDT Oxygen Saturation 98% 02/17/2025 9:12 AM EDT Inhaled Oxygen Concentration - - Weight 104 kg (229 lb 3.2 oz) 02/17/2025 9:12 AM EDT Height - - Body Mass Index 35.37 05/15/2023 2:24 PM EST documented in this encounter Progress Notes * Pawel Blackman MD - 02/17/2025 9:00 AM EDT SUBJECTIVE Ro Gunn is a 44 y.o. female who presents for No chief complaint on file.. Roelijah Gunn, 44 years Urinary Tract Symptoms - Noticed decreased urinary frequency and low urine output since February 11, 2025 (last Sunday) - Experienced significant pelvic pressure with urination, only a few drops each time - Increased fluid intake (water, cranberry juice) without improvement - Urine described as cloudy and malodorous - Denies burning with urination - Denies new back pain, abdominal pain, vaginal discharge, fever, nausea, vomiting - History of similar urinary tract infection episodes in the past, typically presenting with pressure rather than burning - Reports that burning develops if urination is delayed - Last menstrual period ended February 07, 2025 Allergies Relevant to Present Illness - Allergic to nitrofurantoin (causes hives) HPI Review of Systems Constitutional: Negative for fever. HENT: Negative for sore throat. Respiratory: Negative for cough and shortness of breath. Cardiovascular: Negative for chest pain. Gastrointestinal: Negative for abdominal pain. Neurological: Negative for headaches. Allergies[1] OBJECTIVE Vitals: 02/17/25 0912 BP: (!) 144/106 BP Location: Left arm Patient Position: Sitting BP Cuff Size: Adult Pulse: 58 Resp: 20 Temp: 97.8 ??F (36.6 ??C) TempSrc: Oral SpO2: 98% Weight: 229 lb 3.2 oz (104 kg) Physical Exam Vitals reviewed. Constitutional: Appearance: Normal appearance. HENT: Head: Normocephalic and atraumatic. Right Ear: External ear normal. Left Ear: External ear normal. Nose: Nose normal. Mouth/Throat: Mouth: Mucous membranes are moist. Eyes: Conjunctiva/sclera: Conjunctivae normal. Cardiovascular: Rate and Rhythm: Normal rate and regular rhythm. Pulmonary: Effort: Pulmonary effort is normal. Breath sounds: Normal breath sounds. Abdominal: General: Abdomen is flat. Bowel sounds are normal. Palpations: Abdomen is soft. Tenderness: There is no abdominal tenderness. There is no right CVA tenderness or left CVA tenderness. Skin: General: Skin is warm. Neurological: Mental Status: She is alert. Mental status is at baseline. Assessment/Plan Problem List Items Addressed This Visit Cystitis - Primary Symptomatology suggestive of this Urine dipstick positive for Leuks and blood Urine sent for UCx Will treat empirically for UTI. Prescribe bactrim DS BID x 3 days Advise to continue drinking water. Monitor response to treatment. Kidney function monitoring: - Concern for possible renal involvement due to decreased urine output. - Ordered blood work to assess kidney function. Results to be reviewed. Allergy to nitrofurantoin: - Allergy to nitrofurantoin confirmed by history of hives. - Avoid nitrofurantoin in antibiotic selection. Relevant Medications sulfamethoxazole-trimethoprim (Bactrim DS) 800-160 MG tablet Other Relevant Orders Comprehensive Metabolic Panel CBC auto differential Culture, Urine, Routine POCT urinalysis dipstick manually resulted (CPT 47152) (Completed) This note was drafted using Ambient (AI) technology. The patient/patient's guardian has been informed and has consented to the use of this technology: Yes No future appointments. [1] Allergies Allergen Reactions ??? Hydroxyzine Hives and angioedema in the setting of a flare. Plan for in office challenge in the future ??? Wheat ??? Macrobid [Nitrofurantoin] Other GI upset documented in this encounter Miscellaneous Notes * Assessment & Plan Note - Pawel Blackman MD - 02/17/2025 10:05 AM EDT Associated Problem(s): Cystitis Symptomatology suggestive of this Urine dipstick positive for Leuks and blood Urine sent for UCx Will treat empirically for UTI. Prescribe bactrim DS BID x 3 days Advise to continue drinking water. Monitor response to treatment. Kidney function monitoring: - Concern for possible renal involvement due to decreased urine output. - Ordered blood work to assess kidney function. Results to be reviewed. Allergy to nitrofurantoin: - Allergy to nitrofurantoin confirmed by history of hives. - Avoid nitrofurantoin in antibiotic selection. documented in this encounter Plan of Treatment Scheduled Orders Name Type Priority Associated Diagnoses Orde r Schedule Comprehensive Metabolic Panel Lab Routine Cystitis Ordered: 02/17/2025 CBC auto differential Lab Routine Cystitis Expected: 02/17/2025 (Approximate), Expires: 02/17/2026 Culture, Urine, Routine Microbiology Routine Cystitis Expected: 02/17/2025 (Approximate), Expires: 02/17/2026 documented as of this encounter Procedures Procedure Name Priority Date/Time Associated Diagnosis Comments POCT URINALYSIS DIPSTICK Routine 02/17/2025 9:53 AM EDT Cystitis documented in this encounter Results * POCT urinalysis dipstick manually resulted (CPT 48553) (02/17/2025 9:53 AM EDT) Color, UA Yellow Clarity, UA Hazy Glucose, UA Negative Bilirubin, UA Comment:small Ketones, UA Comment:trace Spec Grav, UA 1.025 Blood, UA Comment:moderate pH, UA 6.0 Protein, UA Comment:100 Urobilinogen, UA 1.0 Leukocytes, UA Negative Negative, Rare, Trace Comment:small Nitrite, UA Negative Negative, None Detected Appearance, UA hazy QC Media Lot # [id number] Lot# Expiration Date [id number] Urine (Urine, Random) 02/17/2025 9:53 AM EDT Pawel Blackman MD POINT OF CARE TEST EN TER/EDIT ORDERABLES Final Result documented in this encounter Visit Diagnoses Diagnosis Cystitis- Primary Unspecified cystitis documented in this encounter Additional Health Concerns Assessment Noted Time PHQ-9 Depression Total Score: 4 05/21/19 25 2:34 PM EST documented as of this encounter Care Teams Supervisor Major [employer]liance Assembly Relationship Specialty Start Date End Date Gabrielle Shea ANP [address] [place] [address] PCP - General Family Medicine 12/20/20 documented as of this encounter
--- OUTSIDE RECORDS SUMMARY | 2025-02-17 21:15 | XMS_ITS | Encounter Summary ---
Author Organization [employer] Address [address] [facility] [address] [address] Care Team Providers Care Continuous Churn Buttermaker Name Role Phone Gabrielle Shea Primary Care Provider [phone] Reason for Visit * Reason Comments Med Refill Encounter Details Date Type Department Care Team ([facility] st Contact Info) Description 01/23/2024 Refill [facility] [address] [place], [place] [phone] Gabrielle Shea ANP [address] [place] [address] Migraine without aura and without status migrainosus, [...] documented as of this encounter Care Teams Continuous Churn Buttermaker Relationship Specialty Start Date End Date Gabrielle Shea ANP [address] [place] [address] PCP - General Family Medicine 12/20/20 documented as of this encounter
--- OUTSIDE RECORDS SUMMARY | 2025-02-17 21:15 | XMS_ITS | Encounter Summary ---
Author Organization [facility] Address [address] [place] [address] Care Team Providers Care Park Worker Supervisor Name Role Phone Gabrielle Shea NP Primary Care Provider [phone] Encounter Details Date Type Department Care Team ([facility] st Contact Info) Description 02/06/2025 Results Follow-Up General Surgery - [place] [address] [place] [phone] Samina Witt MD [address] [place] [phone] Social History Tobacco Use Types Packs/Day Years Used Date Smoking Tobacco: Never Smokeless Tobacco: Never Housing Instability Answer Date Recorde d Are [...] care for your loved ones. For example, attendant child activity or elderly care for an older adult? [...] Date Recorded What is your living situation? Unrecognized valu e 09/01/2024 Interpersonal Safety Answer Date Record ed Physical Abuse Unrecognized value 09/01/2024 Verbal Abuse Unrecognized value 09/01/2024 Comments No Sex and Gender Information Value Date Recorded Sex Assigned at Female 07/28/2024 12:40 PM EDT Legal Sex Female 8:58 PM EST Gender Identity Female 07/28/2024 12:40 PM EDT Sexual Orientation Straight 07/28/2024 12 :40 PM EDT documented as of this encounter Plan of Treatment Not on file documented as of this encounter Visit Diagnoses Not on filedocumented in this encounter Care Teams Park Worker Supervisor Relationship Specialty Start Date End Date Gabrielle Shea NP [address] [place] [phone] PCP - General 12/28/22 documented as of this encounter
--- OUTSIDE RECORDS SUMMARY | 2025-02-17 21:15 | XMS_ITS | Clinical Summary ---
Author Organization [facility] Address [address] [place] [address] Phone Care Team Providers Care [employer] Name Role Phone Gabrielle Shea NP Primary Care Provider [phone] Allergies Active Allergy Reactions Criticality Noted Date [...] 30 tablet 2 12/18/2024 03/18/20 25 Active ergocalciferol (VITAMIN D-2) 1,250 mcg (50,000 unit) capsule Take 1 capsule (50,000 Units total) by mouth 1 (one) time per week. 12 each 02/06/2025 02/07/20 26 Active Active Problems Problem Noted Date Diagnosed Date Intestinal metaplasia of stomach without dysplas ia 08/29/2024 S/P gastric sleeve procedure 08/29/2024 Morbid obesity with BMI of 4 0.0-44.9, adult ([facility] V24, [facility] V28) 06/04/2024 Class 3 severe obesity with body mass index (BMI) of 40.0 to 44.9 in adult ([facility] V24, [facility] V28) 02/07/2024 Chronic back pain 05/30/2023 Anxiety 05/30/2023 Urticaria 05/30/2023 Angioedema 05/30/2023 Resolved Problems Problem Noted Date Diagnosed Date Resolved Date Abdominal pain 08/31/2024 09/01/2024 Encounters Date Type Department Care Team Description 02/06/2025 Results Follow-Up General Surgery - [address] [place] [phone] Samina Witt MD 01/30/2025 8:30 AM EDT Office Visit Bariatric Surgery - [address] [place] [address] Samina Witt MD S/P gastric sleeve procedure (Primary Dx); Obesity (BMI 30-39.9) from Last 3 Months Surgical History Surgery [...] care for your loved ones. For example, children's ministries director or elderly care for an older adult? [...] Sign Reading Time Taken Comments Blood Pressure 115/77 01/30/2025 8:29 AM EDT Pulse 74 01/30/2025 8:29 AM EDT Temperature 36.6 C (97.9 F) 01/30/2025 8:29 AM EDT Respiratory Rate 18 09/01/2024 12:13 AM EDT Oxygen Saturation 100% 09/01/2024 12:13 AM EDT Inhaled Oxygen Concentration - - Weight 103 kg (227 lb) 01/30/2025 8:29 AM EDT Height 170.2 cm (5' 7 ) 10/20/2024 8:53 AM EDT Body Mass Index 35.55 10/20/2024 8:53 AM EDT Plan of Treatment Health Maintenance Due Date Last Done Comments Breast Cancer Screening 1982 Hepatitis B Vaccines (1 of 3 - 19+ 3-dose series) 2001 Pneumococcal Vaccine: Pediatrics (0 to 5 Years) and At-Risk Patients (6 to 49 Years) (1 of 2 - PCV) 2001 Cervical Cancer Screening: Pap Smear 08/22/2003 HPV Vaccines (1 - 3-dose SCDM series) 2009 HIV Screening 05/25/2023 Hepatitis C Screening 05/25/2023 [...] Diagnosis Comments CBC WITH AUTO DIFFERENTIAL Routine 01/30/2025 8:43 AM EDT S/P gastric sleeve procedure CBC AND DIFFERENTIAL Routine 01/30/2025 8:43 AM EDT S/P gastric sleeve procedure COMPREHENSIVE METABOLIC PANEL Routine 01/30/2025 8:43 AM EDT S/P gastric sleeve procedure FOLATE Routine 01/30/2025 8:43 AM EDT S/P gastric sleeve procedure IRON AND TIBC Routine 01/30/2025 8:43 AM EDT S/P gastric sleeve procedure SELENIUM SERUM Routine 01/30/2025 8:43 AM EDT S/P gastric sleeve procedure VITAMIN B1 Routine 01/30/2025 8:43 AM EDT S/P gastric sleeve procedure VITAMIN B12 Routine 01/30/2025 8:43 AM EDT S/P gastric sleeve procedure VITAMIN B6 Routine 01/30/2025 8:43 AM EDT S/P gastric sleeve procedure VITAMIN D 25 HYDROXY Routine 01/30/2025 8:43 AM EDT S/P gastric sleeve procedure ZINC Routine 01/30/2025 8:43 AM EDT S/P gastric sleeve procedure CBC WITH AUTO DIFFERENTIAL Routine 11/25/2024 10:45 [...] Maintenance Results * (ABNORMAL) CBC auto differential (01/30/2025 8:43 AM EDT) Only the most recent of2 resultswithin the time period is included. WBC 6.3 4.8 - 10.8 K/mcL LAB HEMETOLOGY METHOD 01/30/2025 10:10 AM [facility] RBC 4.00 3.80 - 4.80 M/mcL LAB HEMETOLOGY METHOD 01/30/2025 10:10 AM [facility] Hemoglobin 11.8 11.5 - 16.0 g/dL LAB HEMETOLOGY METHOD 01/30/2025 10:10 AM [facility] Hematocrit 37.1 35.0 - 47.0 % LAB HEMETOLOGY METHOD 01/30/2025 10:10 AM [facility] MCV 92.1 79.0 - 98.0 FL LAB HEMETOLOGY METHOD 01/30/2025 10:10 AM [facility] MCH 29.3 27.0 - 32.0 pcg LAB HEMETOLOGY METHOD 01/30/2025 10:10 AM [facility] MCHC 31.8(L) 32.0 - 37.0 g/dL LAB HEMETOLOGY METHOD 01/30/2025 10:10 AM [facility] RDW 17.4(H) 11.0 - 15.0 % LAB HEMETOLOGY METHOD 01/30/2025 10:10 AM [facility] Platelets 298 130 - 400 K/mcL LAB HEMETOLOGY METHOD 01/30/2025 10:10 AM [facility] MPV 9.0 7.0 - 11.0 FL LAB HEMETOLOGY METHOD 01/30/2025 10:10 AM [facility] NRBC 0.0 <1.0 % LAB HEMETOLOGY METHOD 01/30/2025 10:10 AM [facility] NRBC Absolute 0.00 <0.10 K/[facility] LAB HEMETOLOGY METHOD 01/30/2025 10:10 AM [facility] Neutrophils Relative 61.9 % LAB HEMETOLOGY METHOD 01/30/2025 10:10 AM [facility] Lymphocytes Relative 28.7 % LAB HEMETOLOGY METHOD 01/30/2025 10:10 AM [facility] Monocytes Relative 7.7 % LAB HEMETOLOGY METHOD 01/30/2025 10:10 AM [facility] Eosinophils Relative 0.9 % LAB HEMETOLOGY METHOD 01/30/2025 10:10 AM [facility] Basophils Relative 0.8 % LAB HEMETOLOGY METHOD 01/30/2025 10:10 AM [facility] Immature Granulocytes Relative 0.0 % LAB HEMETOLOGY METHOD 01/30/2025 10:10 AM [facility] Neutrophils Absolute 3.92 1.50 - 7.00 K/[facility] LAB HEMETOLOGY METHOD 01/30/2025 10:10 AM [facility] Lymphocytes Absolute 1.82 1.00 - 5.00 K/[facility] LAB HEMETOLOGY METHOD 01/30/2025 10:10 AM [facility] Monocytes Absolute 0.49 0.20 - 1.00 K/[facility] LAB HEMETOLOGY METHOD 01/30/2025 10:10 AM [facility] Eosinophils Absolute 0.06 0.00 - 0.50 K/mcL LAB HEMETOLOGY METHOD 01/30/2025 10:10 AM EDT [facility] Basophils Absolute 0.05 0.00 - 0.20 K/[facility] LAB HEMETOLOGY METHOD 01/30/2025 10:10 AM EDT [facility] Immature Granulocytes Absolute 0.00 0.00 - 0.03 K/[facility] LAB HEMETOLOGY METHOD 01/30/2025 10:10 AM EDT [facility] Blood Venous blood specimen / Unknown Venipuncture / Unknown 01/30/2025 8:43 AM EDT 01/30/2025 8:43 AM EDT us Samina Witt MD LAB BLOOD ORDERABLES Fi nal Result Performing Organization Address City/[facility]/ZIP Co de Phone Number [facility] [address] [place] [address], [place] [phone] * Iron and TIBC (01/30/2025 8:43 AM EDT) Only the most recent of2 resultswithin the time period is included. Iron 97 40 - 150 mcg/dL LAB CHEMISTRY METHOD 01/30/2025 10:20 AM EDT [facility] TIBC 361 250 - 450 mcg/dL LAB CHEMISTRY METHOD 01/30/2025 10:20 AM EDT [facility] Iron Saturation 27 15 - 50 % LAB CHEMISTRY METHOD 01/30/2025 10:20 AM EDT [facility] Blood Venous blood specimen / Unknown Venipuncture / Unknown 01/30/2025 8:43 AM EDT 01/30/2025 8:43 AM EDT us Samina Witt MD LAB BLOOD ORDERABLES Fi nal Result Performing Organization Address City/[facility]/ZIP Co de Phone Number [facility] [address] [place] [address], [place] [phone] * Zinc (01/30/2025 8:43 AM EDT) Only the most recent of2 resultswithin the time period is included. Zinc 74 60 - 130 ug/dL 02/02/2025 1:02 PM EDT [facility] Comment: Elevated results may be due to sample collected in a non-certified trace element-free tube. This test was developed and the performance characteristics determined by [facility]. It has not been cleared or approved by the FDA. The laboratory is regulated under CLIA as qualified to perform high-complexity testing. This test is used for patient testing purposes. It should not be regarded as investigational or for research. Test performed at [facility], [address] , [place] [address] Dorothy Mac MD, PhD - Digital Sales Director Blood Venous blood specimen / Unknown Venipuncture / Unknown 01/30/2025 8:43 AM EDT 01/30/2025 8:43 AM EDT Samina Witt MD LAB BLOOD ORDERABLES Fi nal Result [facility] [address] [place] [address] * Selenium serum (01/30/2025 8:43 AM EDT) Only the most recent of2 resultswithin the time period is included. Pathologist [facility] Selenium 147 63 - 160 mcg/L 02/03/2025 8:31 PM EDT [facility] Comment: This test was developed and its analytical performance characteristics have been determined by [facility] [place], [place]. It has not been cleared or approved by the U.S. Food and Drug Administration. This assay has been validated pursuant to the CLIA regulations and is used for clinical purposes. Test Performed by [facility], [facility], [address] [place] [address] Travis Wayne M.D., Ph.D., Director of Laboratories , CLIA [id number] Blood Venous blood specimen / Unknown Venipuncture / Unknown 01/30/2025 8:43 AM EDT 01/30/2025 8:43 AM EDT us Samina Witt MD LAB BLOOD ORDERABLES Fi nal Result [facility] [address] [place] [address] * (ABNORMAL) Vitamin D 25 hydroxy (01/30/2025 8:43 AM EDT) Only the most recent of2 resultswithin the time period is included. Vit D, 25-Hydroxy 23.8(L) 30.0 - 80.0 ng/mL LAB CHEMISTRY METHOD 01/30/2025 11:29 AM EDT [facility] Blood Venous blood specimen / Unknown Venipuncture / Unknown 01/30/2025 8:43 AM EDT 01/30/2025 8:43 AM EDT us Samina Witt MD LAB BLOOD ORDERABLES Fi nal Result Performing Organization Address City/[facility]/ZIP Co de Phone Number [facility] [address] [place] [address], * Vitamin B1 (01/30/2025 8:43 AM EDT) Only the most recent of2 resultswithin the time period is included. Vitamin B1 Whole Blood 40 38 - 122 ug/L 02/04/2025 1:40 PM EDT [facility] Comment: This test was developed and the performance characteristics determined by [facility]. It has not been cleared or approved by the FDA. The laboratory is regulated under CLIA as qualified to perform high-complexity testing. This test is used for patient testing purposes. It should not be regarded as investigational or for research. Test performed at [facility], [address] , [place] [address] Dorothy Mac MD, PhD - Digital Sales Director Blood Venous blood specimen / Unknown Venipuncture / Unknown 01/30/2025 8:43 AM EDT 01/30/2025 8:43 AM EDT Samina Witt MD LAB BLOOD ORDERABLES Fi nal Result [facility] [address] [place] [address] * Vitamin B6 (01/30/2025 8:43 AM EDT) Only the most recent of2 resultswithin the time period is included. Pathologist [facility] Vitamin B6 (Pyridoxine) Level 7 5 - 50 ug/L 02/03/2025 1:14 PM EDT [facility] Comment: This test was developed and the performance characteristics determined by [facility]. It has not been cleared or approved by the FDA. The laboratory is regulated under CLIA as qualified to perform high-complexity testing. This test is used for patient testing purposes. It should not be regarded as investigational or for research. Test performed at [facility], [address] [facility], [place] [address] Dorothy Mac MD, PhD - Digital Sales Director Blood Venous blood specimen / Unknown Venipuncture / Unknown 01/30/2025 8:43 AM EDT 01/30/2025 8:43 AM EDT Samina Witt MD LAB BLOOD ORDERABLES Fi nal Result [facility] [address] [place] [address] * Folate (01/30/2025 8:43 AM EDT) Pathologist [facility] Folate 2.9 2.8 - 17.0 ng/ml LAB CHEMISTRY METHOD 01/30/2025 10:41 AM EDT [facility] Blood Venous blood specimen / Unknown Venipuncture / Unknown 01/30/2025 8:43 AM EDT 01/30/2025 8:43 AM EDT us Samina Witt MD LAB BLOOD ORDERABLES Fi nal Result Performing Organization Address City/[facility]/ZIP Co de Phone Number [facility] [address] [place] [address], [place] [phone] * Vitamin B12 (01/30/2025 8:43 AM EDT) Only the most recent of2 resultswithin the time period is included. [facility] Vitamin B-12 311 250 - 900 pcg/mL LAB CHEMISTRY METHOD 01/30/2025 10:41 AM EDT [facility] Blood Venous blood specimen / Unknown Venipuncture / Unknown 01/30/2025 8:43 AM EDT 01/30/2025 8:43 AM EDT us Samina Witt MD LAB BLOOD ORDERABLES Fi nal Result Performing Organization Address [facility]/ZIP Co de Phone Number [facility] [address] [place] [address], [place] [phone] * Comprehensive metabolic panel (01/30/2025 8:43 AM EDT) Only the most recent of2 resultswithin the time period is included. [facility] Sodium 140 133 - 145 mmol/L LAB CHEMISTRY METHOD 01/30/2025 10:20 AM EDT [facility] Potassium 3.7 3.5 - 5.5 mmol/L LAB CHEMISTRY METHOD 01/30/2025 10:20 AM EDT [facility] Chloride 107 96 - 110 mmol/L LAB CHEMISTRY METHOD 01/30/2025 10:20 AM EDT [facility] CO2 28 21 - 32 mmol/L LAB CHEMISTRY METHOD 01/30/2025 10:20 AM EDT [facility] Anion Gap 5 3 - 11 LAB CHEMISTRY METHOD 01/30/2025 10:20 AM [facility] Glucose 79 70 - 100 mg/dL LAB CHEMISTRY METHOD 01/30/2025 10:20 AM [facility] BUN 14 5 - 25 mg/dL LAB CHEMISTRY METHOD 01/30/2025 10:20 AM [facility] Creatinine 0.78 0.50 - 1.10 mg/dL LAB CHEMISTRY METHOD 01/30/2025 10:20 AM [facility] eGFR 97 >=60 mL/min/1. 73m2 LAB CHEMISTRY METHOD 01/30/2025 10:20 AM [facility] Comment:Calculation based on the Chronic Kidney Disease Epidemiology Collaboration (CKD-EPI) equation refit without adjustment for race. BUN/Creatinine Ratio 17.9 LAB CHEMISTRY METHOD 01/30/2025 10:20 AM [facility] Calcium 9.3 8.5 - 10.5 mg/dL LAB CHEMISTRY METHOD 01/30/2025 10:20 AM [facility] AST (SGOT) 13 10 - 42 unit/L LAB CHEMISTRY METHOD 01/30/2025 10:20 AM [facility] ALT (SGPT) 16 10 - 60 unit/L LAB CHEMISTRY METHOD 01/30/2025 10:20 AM [facility] Alkaline Phosphatase 67 42 - 121 unit/L LAB CHEMISTRY METHOD 01/30/2025 10:20 AM [facility] Total Protein 7.8 6.0 - 8.0 g/dL LAB CHEMISTRY METHOD 01/30/2025 10:20 AM [facility] Albumin 3.9 3.2 - 5.0 g/dL LAB CHEMISTRY METHOD 01/30/2025 10:20 AM [facility] Total Bilirubin 1.1 0.0 - 1.4 mg/dL LAB CHEMISTRY METHOD 01/30/2025 10:20 AM [facility] Blood Venous blood specimen / Unknown Venipuncture / Unknown 01/30/2025 8:43 AM EDT 01/30/2025 8:43 AM EDT us Samina Witt MD LAB BLOOD ORDERABLES Fi nal Result [facility] [address] [place] [address], [place] [phone] * Lipid panel with reflex to direct LDL (05/12/2024 7:50 AM EST) Cholesterol 141 0 - 200 mg/dL LAB CHEMISTRY METHOD 05/12/2024 10:34 AM EST [facility] Triglycerides 70 0 - 150 mg/dL LAB CHEMISTRY METHOD 05/12/2024 10:34 AM EST [facility] HDL 42 >=40 mg/dL LAB CHEMISTRY METHOD 05/12/2024 10:34 AM EST [facility] LDL Calculated 85 0 - 100 mg/dL LAB CHEMISTRY METHOD 05/12/2024 10:34 AM EST [facility] VLDL Cholesterol Laz 14 mg/dL LAB CHEMISTRY METHOD 05/12/2024 10:34 AM EST [facility] Non HDL Chol. (LDL+VLDL) 99 <145 mg/dL LAB CHEMISTRY METHOD 05/12/2024 10:34 AM EST [facility] Chol/HDL Ratio 3.4 0.0 - 4.4 LAB CHEMISTRY METHOD 05/12/2024 10:34 AM EST [facility] Blood Venous blood specimen / Unknown Venipuncture / Unknown 05/12/2024 7:50 AM EST 05/12/2024 7:50 AM EST us Samina Witt MD LAB BLOOD ORDERABLES Fi nal Result Performing Organization Address City/[facility]/ZIP Co de Phone Number [facility] [address] [place] [address], [place] [phone] from Last 3 Months or Most Recently Relevant to Health Maintenance Insurance MEDICAID - [place] Advance Directives * Full Code - Default [...] currently active code status orders. Care Teams Cook At [employer] Relationship Specialty Start Date End Date Gabrielle Shea NP [address] [place] [phone] PCP - General 12/28/22
--- OUTSIDE RECORDS SUMMARY | 2025-02-17 21:15 | XMS_ITS | Encounter Summary ---
Author Organization [facility] Address [address] [place] [address] [address] [place] [address] Care Team Providers Care Paper Mill Superintendent Name Role Phone Gabrielle Shea Primary Care Provider [phone] Reason for Visit * Reason Onset Date Comments Med Refill 06/25/2023 Encounter Details Date Type Department Care Team (Late st Contact Info) Description 06/25/2023 Refill [facility] [address] [place], [place] [phone] Gabrielle Shea ANP [address] [place] [address] Social History Tobacco Use Types Packs/Day Years [...] on filedocumented in this encounter Care Teams Paper Mill Superintendent Relationship Specialty Start Date End Date Gabrielle Shea ANP [address] [place] [phone] PCP - General Family Medicine 12/20/20 documented as of this encounter
--- OUTSIDE RECORDS SUMMARY | 2025-02-17 21:15 | XMS_ITS | Encounter Summary ---
Author Organization [facility] Address [address] [place] [address] Care Team Providers Care Manager Pricing Name Role Phone Monse Gabrielle WHITE Primary Care Provider [phone] Encounter Details Date Type Department Care Team (Latest Contact Info) Description 02/17/2025 Travel Social History Tobacco Use Types Packs/Day Years [...] documented as of this encounter Care Teams Manager Pricing Relationship Specialty Start Date End Date Gabrielle Shea ANP [address] [place] [address] PCP - General Family Medicine 12/20/20 documented as of this encounter
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
--- OUTSIDE RECORDS SUMMARY | 2025-02-17 21:15 | XMS_ITS | Encounter Summary ---
Author Organization [employer] Address [address] [place] [address] [address], [place] [address] Care Team Providers Care Global Engineering Manager Name Role Phone Gabrielle Shea Primary Care Provider [phone] Encounter Details Date Type Department Care Team (Late st Contact Info) Description 06/27/2022 Orders Only [facility] [address] [place], [place] [phone] Gabrielle Shea ANP [address] [place] [address] Urinary frequency (Primary Dx) Social History Tobacco [...] Primary documented in this encounter Care Teams Global Engineering Manager Relationship Specialty Start Date End Date Gabrielle Shea ANP [address] [place] [address] PCP - General Family Medicine 12/20/20 documented as of this encounter
--- OUTSIDE RECORDS SUMMARY | 2025-02-17 21:15 | XMS_ITS | Encounter Summary ---
Author Organization [employer] Address [address] [place] [address] [address] [place] [address] Care Team Providers Care Airport Maintenance Chief Name Role Phone Monse Gabrielle WHITE Primary Care Provider Reason for Visit * Reason Onset Date Comments Med Refill 07/31/2023 Encounter Details Date Type Department Care Team (Late st Contact Info) Description 07/31/2023 Refill [facility] [address] [place], [place] [phone] Sheryl Diana MD [address] [place], [place] [phone] Migraine without aura and without status migrainosus, [...] documented as of this encounter Care Teams Airport Maintenance Chief Relationship Specialty Start Date End Date Gabrielle Shea ANP [address] [place] [address] PCP - General Family Medicine 12/20/20 documented as of this encounter
--- OUTSIDE RECORDS SUMMARY | 2025-02-17 21:15 | XMS_ITS | Encounter Summary ---
Author Organization [employer] Address [address] [place] [address] [address] [place] [address] Care Team Providers Care Oncology Nurse Navigator Name Role Phone Monse Gabrielle WHITE Primary Care Provider [phone] Reason for Visit * Reason Onset Date Comments Med Refill 06/25/2023 Encounter Details Date Type Department Care Team (Late st Contact Info) Description 06/25/2023 Refill [facility] [address] [place], [place] [phone] Jessie Guzmán MD [address] [place] [address] Social History Tobacco Use Types Packs/Day Years [...] on filedocumented in this encounter Care Teams Oncology Nurse Navigator Relationship Specialty Start Date End Date Gabrielle Shea ANP [address] [place] [address] PCP - General Family Medicine 12/20/20 documented as of this encounter
--- OUTSIDE RECORDS SUMMARY | 2025-02-17 21:15 | XMS_ITS | Encounter Summary ---
Author Organization [employer] Address [address] [place] [address] Care Team Providers Care Watch Hairspring Assembler Name Role Phone Gabrielle Shea Primary Care Provider [phone] Reason for Visit * Reason Comments Med Refill Encounter Details Date Type Department Care Team ([facility] st Contact Info) Description 10/25/2023 Refill [facility] [address] [place], [place] [phone] Gabrielle Shea ANP [address] [place] [address] Migraine without aura and without status migrainosus, [...] documented as of this encounter Care Teams Watch Hairspring Assembler Relationship Specialty Start Date End Date Gabrielle Shea ANP [address] [place] [address] PCP - General Family Medicine 12/20/20 documented as of this encounter
--- OUTSIDE RECORDS SUMMARY | 2025-02-17 21:15 | XMS_ITS | Clinical Summary ---
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 It is not the complete legal health record.[facility]
--- OUTSIDE RECORDS SUMMARY | 2025-02-17 21:15 | XMS_ITS | Encounter Summary ---
Author Organization [employer] Address [address] [place] [address] [place], [place] [address] Care Team Providers Care Operations Agent Name Role Phone Gabrielle Shea Primary Care Provider [phone] Reason for Visit * Reason Comments Med Refill Encounter Details Date Type Department Care Team (Late st Contact Info) Description 11/30/2022 Refill [facility] [address] [place] [address] Gabrielle Shea ANP [address] [place] [address] Chronic bilateral low back pain, unspecified whether [...] present documented in this encounter Care Teams Operations Agent Relationship Specialty Start Date End Date Gabrielle Shea ANP [address] [place] [address] PCP - General Family Medicine 12/20/20 documented as of this encounter
--- OUTSIDE RECORDS SUMMARY | 2025-02-17 21:15 | XMS_ITS | Encounter Summary ---
Author Organization [facility] Address [address] [place] [address] [address] [place] [address] Phone Care Team Providers Care Graphic Design Manager Name Role Phone Gabrielle Shea Primary Care Provider [phone] Reason for Referral * Consultation (Within 1 month) - Closed Specialty Diagnoses / Procedures Referred By Contac t Referred To Contact Rheumatology Gabrielle Shea ANP Phone: tel: fax: [facility] [address] [place] [address] Phone: tel: Referral ID Status Reason Start Date Expiration Date Visits Re quested Visits Authorized [id number] Closed 07/08/2019 07/07/2020 6 0 Encounter Details Date Type Department Care Team (Late st Contact Info) Description 07/08/2019 Transcribe Orders [facility] Rheumatology [place] [address] [facility] Floor, [address] [place] [address] Gabrielle Shea ANP [address] [place] [address] Social History Tobacco Use Types Packs/Day Years [...] Associated Diagnoses Order Schedule Ambulatory referral to [facility] Rheumatology Outpatient Referral Routine Ordered: 07/08/2019 documented as of this encounter Visit Diagnoses Not on filedocumented in this encounter Care Teams Graphic Design Manager Relationship Specialty Start Date End Date Gabrielle Shea ANP [address] [place] [address] PCP - General Family Medicine 05/28/19 documented as of this encounter Additional Source Comments The information contained in this document represents components of the legal health record. It is not the complete legal health record.[facility]
--- OUTSIDE RECORDS SUMMARY | 2025-02-17 21:15 | XMS_ITS | Encounter Summary ---
Author Organization [employer] Address [address] [place] [address] [address] [place] [address] Care Team Providers Care Reverse Engineer Name Role Phone Monse Gabrielle WHITE Primary Care Provider [phone] Reason for Visit * Reason Onset Date Comments Med Refill 07/31/2023 Encounter Details Date Type Department Care Team (Late st Contact Info) Description 07/31/2023 Refill [facility] [address] [place], [place] [phone] Jessie Guzmán MD [address] [place] [address] Social History Tobacco Use Types Packs/Day Years [...] documented as of this encounter Care Teams Reverse Engineer Relationship Specialty Start Date End Date Gbarielle Shea ANP [address] [place] [address] PCP - General Family Medicine 12/20/20 documented as of this encounter
--- OUTSIDE RECORDS SUMMARY | 2025-02-17 21:15 | XMS_ITS | Encounter Summary ---
Author Organization [employer] Address [address] [facility] 7t [place] [address] Care Team Providers Care Furniture Lumber Production Worker Name Role Phone Monse Gabrielle WHITE Primary Care Provider [phone] Reason for Visit * Reason Onset Date Comments Med Refill 07/31/2023 Encounter Details Date Type Department Care Team (Late st Contact Info) Description 07/31/2023 Refill [facility] [address] [place] [address] Lori García MD [address] [place] [address] Neck pain; Upper back pain; Acute bilateral [...] documented as of this encounter Care Teams Furniture Lumber Production Worker Relationship Specialty Start Date End Date Gabrielle Shea ANP [address] [place] [address] PCP - General Family Medicine 12/20/20 documented as of this encounter
--- OUTSIDE RECORDS SUMMARY | 2025-02-17 21:15 | XMS_ITS | Encounter Summary ---
Author Organization [employer] Address [address] [place] [address] [address], [place] [address] Care Team Providers Care Labor Representative Name Role Phone Gabrielle Shea Primary Care Provider [phone] Reason for Visit * Reason Comments Med Refill Encounter Details Date Type Department Care Team (Late st Contact Info) Description 11/28/2022 Refill [facility] [address] [place] [address] Gabrielle Shea ANP [address] [place] [address] Chronic bilateral low back pain, unspecified whether [...] present documented in this encounter Care Teams Labor Representative Relationship Specialty Start Date End Date Gabrielle Shea ANP [address] [place] [address] PCP - General Family Medicine 12/20/20 documented as of this encounter
--- OUTSIDE RECORDS SUMMARY | 2025-02-17 21:15 | XMS_ITS | Encounter Summary ---
Author Organization [employer] Address [address] [facility] [address] 7[address] [place] [address] Care Team Providers Care Crew Mess Attendant Name Role Phone Gabrielle Shea CHRISTOPHER Primary Care Provider [phone] Encounter Details Date Type Department Care Team (Latest Contact Info) Description 02/16/2025 Travel Social History Tobacco Use Types Packs/Day [...] documented as of this encounter Care Teams Crew Mess Attendant Relationship Specialty Start Date End Date Gabrielle Shea ANP [address] [place] [address] PCP - General Family Medicine 12/20/20 documented as of this encounter
== END 2025-02-17 17:22 | disposition home or self-care (01) ==
LOC: HO.LNP 17:21
PROVIDERS: Visit Provider Internal Medicine
DX: N30.90 Cystitis, unspecified without hematuria (principal)
CPT/HCPCS: 87086

== ENCOUNTER 2025-02-21 08:48 | Outpatient (REF) | payer MEDICAID, SELFPAY ==
[2025-02-21 09:03] LABS: MANUAL DIFF FLAG NO
[2025-02-21 09:54] LABS: Hematocrit 31.7 % (37.0-47.0); Hemoglobin 10.4 g/dl (12.0-16.0); Imm Gran Abs Auto 0.01 X10*3/uL (0.00-0.03); Imm Gran Pct Auto 0.2 % (0.0-0.4); Lymphocytes Absolute Auto 1.8 X10*3/uL (1.2-4.9); Mean Corpuscular HGB Conc 32.8 g/dl (31.0-35.0); Mean Corpuscular Hemoglobin 30.3 pg (27.0-33.0); Mean Corpuscular Volume 92.4 fL (80.0-98.0); NRBC Abs Auto 0.000 X10*3/uL (0.0-0.012); NRBC Pct Auto 0.0 /100WBC (0.0-0.2); Platelet Count 269 X10*3/uL (160-400); Red Blood Count 3.43 X10*6/uL (4.20-5.50); White Blood Count 4.9 X10*3/uL (4.8-10.8)
[2025-02-21 10:35] LABS: Alanine Aminotransferase 14 U/L (0-31); Albumin Level 4.1 g/dL (3.5-5.0); Alkaline Phosphatase 51 U/L (39-117); Anion Gap 12 (12-20); Aspartate Amino Transferase 20 U/L (5-31); Blood Urea Nitrogen 16 mg/dL (9-16); Calcium 8.9 mg/dL (8.4-10.2); Carbon Dioxide 23 mmol/L (22-29); Chloride 111 mmol/L (96-108); Estimated Glomerular Filt Rate > 60; Potassium 3.7 mmol/L (3.3-5.1); Sodium 142 mmol/L (135-145); Total Protein 7.1 g/dL (6.5-8.0)
== END 2025-02-21 08:49 | disposition home or self-care (01) ==
LOC: HO.LAB 08:48
PROVIDERS: Absent Provider Internal Medicine; PCP Nurse Practitioner Primary Care; Visit Provider Nurse Practitioner Primary Care
DX: N30.00 Acute cystitis without hematuria (principal)
CPT/HCPCS: 36415; 80053; 85025; 87086